=== PATIENT | female | born 2000 | race Native Hawaiian/Other Pacific Islander ===

== ENCOUNTER 2020-12-06 20:52 | Emergency (ER) | payer OTHER ==
[2020-12-06 22:09] VITALS: PULSE 88; RESP 18; TEMP 98
[2020-12-06] MEDS ORDERED: LABETALOL 200 MG TAB PO ONE (23:45)
[2020-12-07 00:19] VITALS: BP 143/103
[2020-12-07 00:27] LABS: Appearance,Urine Clear (Clear); Bilirubin,Urine Negative (Negative); Blood,Urine Small (Negative); Color,Urine Colorless; Glucose,Urine (UA) Negative (Negative); Ketones,Urine Negative (Negative); Leukocyte Esterase,Urine Small (Negative); Nitrite,Urine Negative (Negative); Protein,Urine 2+ (Negative); RBC,Urine 5 /hpf (0-5); Specific Gravity,Urine 1.006 (1.001-1.035); Squamous Epithelial Cell,Urine <1 /hpf (0-4); Urobilinogen,Urine <2.0 mg/dL (<2.0); WBC,Urine 12 /hpf (0-5)
--- NOTE | 2020-12-07 00:38 | ED ---
Recheck HPI - General Chief Complaint: Recheck/Abnormal Lab/Rx Stated Complaint: 16 Wks Preg,Hasn't felt baby move Time Seen by Provider: 12/06/20 23:14 Source: patient Mode of arrival: ambulatory Limitations: no limitations - History of Present Illness Initial Comments: 20 year-old female patien who is , presents to the emergency department for evaluation because she has not felt the baby move in 3 days. She states previously she was feeling some movements. Patient is considered a high risk due to history of renal failure with Alport syndrome. States she had light pink spotting yesterday. Denies any abdominal pain or cramping. Denies any vaginal bleeding or discharge today. She also reports mild increase in swelling to the legs. Denies hematuria, dysuria, urinary frequency, urinary urgency. Patient denies any recent rash, fever, chills, cough, shortness of breath, chest pain, nausea, vomiting, diarrhea, constipation, numbness, tingling, dizziness, weakness, urinary frequency, headache, visual changes, or any other complaints. - Related Data Previous Rx's Medication Instructions Recorded Enalapril [Vasotec] 10 mg PO DAILY #30 tablet 08/08/13 Cephalexin [Keflex] 500 mg PO BID #6 cap 12/07/20 Allergies Allergy/AdvReac Type Severity Reaction Status Date / Time No Known Allergies Allergy Verified 12/06/20 22:05 Review of Systems ROS Statement: Those systems with pertinent positive or pertinent negative responses have been documented in the HPI. ROS Other: All systems not noted in ROS Statement are negative. Past Medical History Past Medical History: Hypertension Additional Past Medical History / Comment(s): alport syndrome History of Any Multi-Drug Resistant Organisms: None Reported Past Surgical History: No Surgical Hx Reported Past Psychological History: No Psychological Hx Reported Smoking Status: Never smoker Past Alcohol Use History: None Reported Past Drug Use History: None Reported General Exam Limitations: no limitations General appearance: alert, in no apparent distress, other (This is a well- developed, well-nourished adult female patient in no acute distress. Vital signs upon presentation are temperature 98.2F, pulse 88, respirations 18, blood pressure 161/103, pulse ox 99% on room air.) ENT exam: Present: normal exam, normal oropharynx, mucous membranes moist Respiratory exam: Present: normal lung sounds bilaterally. Absent: respiratory distress, wheezes, rales, rhonchi, stridor Cardiovascular Exam: Present: regular rate, normal rhythm, normal heart sounds. Absent: systolic murmur, diastolic murmur, rubs, gallop, clicks GI/Abdominal exam: Present: soft, normal bowel sounds. Absent: distended, tenderness, guarding, rebound, rigid Neurological exam: Present: alert, oriented X3, CN II-XII intact Psychiatric exam: Present: normal affect, normal mood Skin exam: Present: warm, dry, intact, normal color. Absent: rash Course Vital Signs 12/06/20 12/07/20 22:05 00:18 Temperature 98.0 F Pulse Rate 88 Respiratory 18 Rate Blood Pressure 161/103 143/103 O2 Sat by Pulse 99 Oximetry Procedures - Procedures Initial comment: Performed bedside ultrasound of the fetus, visualized movement and cardiac activity. Medical Decision Making - Medical Decision Making 20-year-old female patient presents to the emergency department today for evaluation due to not feeling her baby move for the last 3 days. She is 16 weeks , G2, P0. Did perform bedside ultrasound which showed good movement and cardiac activity. We did urinalysis which showed 16 white blood cells large leukocyte esterase, we will treat with Keflex for UTI. She has some lower extremity swelling, nonpitting edema. He smiled at this time. She is having no difficulty breathing. She'll be discharged follow-up with her DOG TRACK KENNEL MANAGER and associate store director for further evaluation as soon as possible. Return parameters discussed in detail. She verbalizes understanding and agrees with this plan. Case discussed with my attending Dr. Russo. - Lab Data Lab Results 12/07/20 Range/Units 00:18 Urine Color Colorless Urine Appearance Clear (Clear) Urine pH 7.0 (5.0-8.0) Ur Specific [place] 1.006 (1.001-1.035) Urine Protein 2+ H (Negative) Urine Glucose (UA) Negative (Negative) Urine Ketones Negative (Negative) Urine Blood Small H (Negative) Urine Nitrite Negative (Negative) Urine Bilirubin Negative (Negative) Urine Urobilinogen <2.0 (<2.0) mg/dL Ur Leukocyte Esterase Small H (Negative) Urine RBC 5 (0-5) /hpf Urine WBC 12 H (0-5) /hpf Ur Squamous Epith Cells <1 (0-4) /hpf Disposition Clinical Impression: Leg swelling in Disposition: HOME SELF-CARE Condition: Good Instructions (If sedation given, give patient instructions): Leg Edema (ED) Additional Instructions: Take medication as directed. Follow up with primary care physician in 1-2 days. Return for any new, worsening, or concerning symptoms. Prescriptions: Cephalexin [Keflex] 500 mg PO BID #6 cap Is patient prescribed a controlled substance at d/c from ED?: No Referrals: Daisy Calvillo DO [Primary Care Provider] - 1-2 days Time of Disposition: 01:04
[2020-12-07] MEDS ORDERED: CEPHALEXIN 500MG STARTER PACK 4 CAP BTL PO STA (01:04)
== END 2020-12-07 01:30 | disposition home or self-care (01) ==
LOC: EC 20:52
DX: O26.892 Other specified pregnancy related conditions, second trimester (principal); R60.0 Localized edema; Z3A.16 16 weeks gestation of pregnancy
CPT/HCPCS: 81001; 87086; 99283

== ENCOUNTER 2020-12-23 13:55 | Emergency (ER) | payer OTHER ==
[2020-12-23 14:02] VITALS: TEMP 98.6
[2020-12-23 14:23] VITALS: RESP 18
[2020-12-23] MEDS ORDERED: SODIUM CHLORIDE 0.9% 1,000 ML IV STA (14:25)
--- NOTE | 2020-12-23 14:57 | ED ---
General Adult HPI - General Chief complaint: Recheck/Abnormal Lab/Rx Stated complaint: 18weeks preg-poss water break Time Seen by Provider: 12/23/20 14:19 Source: patient, RN notes reviewed, old records reviewed Mode of arrival: ambulatory Limitations: no limitations - History of Present Illness Initial comments: 20-year-old female currently 18 weeks presents with suspected ruptured membranes. She noted just prior to arrival clear drainage without blood. She has some mild abdominal cramping. She does follow with the high risk clinic at [facility]. She has a history of Alport's syndrome and is in stage III kidney failure. She has one previous miscarriage. - Related Data Previous Rx's Medication Instructions Recorded Enalapril [Vasotec] 10 mg PO DAILY #30 tablet 08/08/13 Cephalexin [Keflex] 500 mg PO BID #6 cap 12/07/20 Allergies Allergy/AdvReac Type Severity Reaction Status Date / Time No Known Allergies Allergy Verified 12/06/20 22:05 Review of Systems ROS Statement: Those systems with pertinent positive or pertinent negative responses have been documented in the HPI. ROS Other: All systems not noted in ROS Statement are negative. Past Medical History Past Medical History: Hypertension Additional Past Medical History / Comment(s): alport syndrome History of Any Multi-Drug Resistant Organisms: None Reported Past Surgical History: No Surgical Hx Reported Past Psychological History: No Psychological Hx Reported Smoking Status: Never smoker Past Alcohol Use History: None Reported Past Drug Use History: None Reported General Exam Limitations: no limitations General appearance: alert, in no apparent distress Head exam: Present: atraumatic, normocephalic Eye exam: Present: normal appearance, PERRL ENT exam: Present: normal exam Neck exam: Present: normal inspection. Absent: tenderness, meningismus Respiratory exam: Present: normal lung sounds bilaterally. Absent: respiratory distress, wheezes Cardiovascular Exam: Present: regular rate, normal rhythm GI/Abdominal exam: Present: soft, tenderness (Mild suprapubic tenderness). Absent: distended Extremities exam: Present: normal capillary refill, pedal edema Neurological exam: Present: alert, oriented X3, CN II-XII intact. Absent: motor sensory deficit Psychiatric exam: Present: normal affect, normal mood Skin exam: Present: warm, dry, intact. Absent: cyanosis, diaphoretic Course Vital Signs 12/23/20 12/23/20 12/23/20 13:57 14:22 15:23 Temperature 98.6 F Pulse Rate 94 103 H 99 Respiratory 19 18 18 Rate Blood Pressure 137/95 144/96 O2 Sat by Pulse 100 99 100 Oximetry - Reevaluation(s) Reevaluation #1: 12/23/20 16:14 Did discuss [address] with [address] Cook at [facility] covering for the high risk obstetrics. We did decide ultimately to send the patient to [facility] for intake evaluation and treatment. Antibiotics were initiated including ampicillin and azithromycin. Medical Decision Making - Medical Decision Making 20-year-old female history of Alport syndrome, hypertension, at 18 weeks gestation presenting with ruptured membranes. She has minimal abdominal cramping. She is mildly hypertensive with otherwise stable vitals. Ultrasound is performed, showing decreased amniotic fluid and heart tones of 145. Patient has a normal white blood cell count, hemoglobin is 10.4. She has a creatinine of 2.2 without recent for comparison. I discussed case with Dr. Lam at the onset of care when recommended ultrasound and laboratory testing this was performed. I discussed case with Dr. Cook covering for high risk obstetrics at [facility]. He did recommend initiating antibiotics and ultimately decided to transfer the patient for further evaluatio n and treatment. I discussed case with the covering electromechanical technician Dr. Sy. Patient given a disc with imaging, she will drive to [facility] and report to labor and delivery. - Lab Data Result diagrams: 12/23/20 15:23 12/23/20 15:23 Lab Results 12/23/20 12/23/20 12/23/20 Range/Units 15:23 15:23 15:23 WBC 9.5 (3.8-10.6) k/uL RBC 3.62 L (3.80-5.40) m/uL Hgb 10.4 L (11.4-16.0) gm/dL Hct 31.2 L (34.0-46.0) % MCV 86.1 (80.0-100.0) fL MCH 28.6 (25.0-35.0) pg MCHC 33.2 (31.0-37.0) g/dL RDW 15.0 (11.5-15.5) % Plt Count 308 (150-450) k/uL MPV 7.2 Neutrophils % 78 % Lymphocytes % 16 % Monocytes % 3 % Eosinophils % 1 % Basophils % 0 % Neutrophils # 7.5 (1.3-7.7) k/uL Lymphocytes # 1.5 (1.0-4.8) k/uL Monocytes # 0.3 (0-1.0) k/uL Eosinophils # 0.1 (0-0.7) k/uL Basophils # 0.0 (0-0.2) k/uL PT (9.0-12.0) sec INR (<1.2) APTT (22.0-30.0) sec Sodium 135 L (137-145) mmol/L Potassium 5.3 H (3.5-5.1) mmol/L Chloride 112 H (98-107) mmol/L Carbon Dioxide 14 L (22-30) mmol/L Anion Gap 9 mmol/L BUN 16 (7-17) mg/dL Creatinine 2.21 H (0.52-1.04) mg/dL Est GFR (CKD-EPI)AfAm 36 (>60 ml/min/1.73 sqM) Est GFR (CKD-EPI)NonAf 31 (>60 ml/min/1.73 sqM) Glucose 76 (74-99) mg/dL Plasma Lactic Acid Roland 0.6 L (0.7-2.0) mmol/L Calcium 9.5 (8.4-10.2) mg/dL Total Bilirubin 0.4 (0.2-1.3) mg/dL AST 21 (14-36) U/L ALT 15 (4-34) U/L Alkaline Phosphatase 104 (38-126) U/L Total Protein 6.9 (6.3-8.2) g/dL Albumin 3.6 (3.5-5.0) g/dL 12/23/20 Range/Units 15:23 WBC (3.8-10.6) k/uL RBC (3.80-5.40) m/uL Hgb (11.4-16.0) gm/dL Hct (34.0-46.0) % MCV (80.0-100.0) fL MCH (25.0-35.0) pg MCHC (31.0-37.0) g/dL RDW (11.5-15.5) % Plt Count (150-450) k/uL MPV Neutrophils % % Lymphocytes % % Monocytes % % Eosinophils % % Basophils % % Neutrophils # (1.3-7.7) k/uL Lymphocytes # (1.0-4.8) k/uL Monocytes # (0-1.0) k/uL Eosinophils # (0-0.7) k/uL Basophils # (0-0.2) k/uL PT 9.6 (9.0-12.0) sec INR 0.9 (<1.2) APTT 24.2 (22.0-30.0) sec Sodium (137-145) mmol/L Potassium (3.5-5.1) mmol/L Chloride (98-107) mmol/L Carbon Dioxide (22-30) mmol/L Anion Gap mmol/L BUN (7-17) mg/dL Creatinine (0.52-1.04) mg/dL Est GFR (CKD-EPI)AfAm (>60 ml/min/1.73 sqM) Est GFR (CKD-EPI)NonAf (>60 ml/min/1.73 sqM) Glucose (74-99) mg/dL Plasma Lactic Acid Roland (0.7-2.0) mmol/L Calcium (8.4-10.2) mg/dL Total Bilirubin (0.2-1.3) mg/dL AST (14-36) U/L ALT (4-34) U/L Alkaline Phosphatase (38-126) U/L Total Protein (6.3-8.2) g/dL Albumin (3.5-5.0) g/dL Disposition Clinical Impression: premature rupture of membranes Disposition: HOME SELF-CARE Condition: Fair Additional Instructions: Please take disc. Please report likely to [facility] labor and delivery. Is patient prescribed a controlled substance at d/c from ED?: No Referrals: Daisy Calvillo DO [Primary Care Provider] - 1-2 days Time of Disposition: 16:22
[2020-12-23] MEDS ORDERED: SODIUM CHLORIDE 0.9% 1,000 ML IV SCH (15:00)
[2020-12-23 15:38] LABS: Basophils % (A) 0 %; Eosinophils # (A) 0.1 k/uL (0-0.7); Eosinophils % (A) 1 %; HCT 31.2 % (34.0-46.0); HGB 10.4 gm/dL (11.4-16.0); Lymphocytes # (A) 1.5 k/uL (1.0-4.8); Lymphocytes % (A) 16 %; MCH 28.6 pg (25.0-35.0); MCHC 33.2 g/dL (31.0-37.0); MCV 86.1 fL (80.0-100.0); Mean Platelet Volume 7.2; Monocytes # (A) 0.3 k/uL (0-1.0); Monocytes % (A) 3 %; Neutrophils # (A) 7.5 k/uL (1.3-7.7); Neutrophils % (A) 78 %; Platelet Count 308 k/uL (150-450); RBC 3.62 m/uL (3.80-5.40); WBC 9.5 k/uL (3.8-10.6)
--- NOTE | 2020-12-23 15:39 | US ---
EXAMINATION TYPE: US OB >= 14 wk fetus DATE OF EXAM: 12/23/2020 COMPARISON: None CLINICAL HISTORY: . ruptured membranesPatient states having an ultrasound x 2 days ago TECHNIQUE: Transabdominal (TA) GESTATIONAL AGE / DATING Physician Established: (18 weeks/0 days) EDC: 05/26/2021 Dates by Current Scan: (17 weeks/2 days) EDC: Beta HCG (if available): Not available at this time SURVEY IUP: Single PLACENTA: posterior, not well visualized due to no amniotic fluid PREVIA: not well visualized due to no amniotic fluid PHIL: 2.0 cm Oligohydramnios CERVICAL LENGTH (transabdominal: norm > 3.0cm): 3.1 cm BIOMETRY- limited visualization due to no amniotic fluid PRESENTATION: Breech BPD: 3.4 cm 16 weeks / 4 days HC: 13.5 cm 17 weeks / 0 days AC: 13.0 cm 18 weeks / 4 days FL: 2.4 cm 17 weeks / 0 days ESTIMATED WEIGHT IN GRAMS: 207.1 grams ESTIMATED WEIGHT IN LBS/OZ: 0 lbs. 7 oz. WEIGHT PERCENTAGE BASED ON ESTABLISHED DATES: 28.7% HC/AC: 1.03 Abnormal FL/AC: 17.5 Normal HEART RATE: 145 bpm RHYTHM: Normal Abnormal amniotic fluid volume visualized. IUP with positive heart tones. Right ovarian cyst seen= 3.6 x 3.0 x 3.0 cm IMPRESSION: Intrauterine as described above. Oligohydramnios with an amniotic fluid index of 2.0 cm.
[2020-12-23 15:50] LABS: Albumin 3.6 g/dL (3.5-5.0); Calcium 9.5 mg/dL (8.4-10.2); Potassium 5.3 mmol/L (3.5-5.1); Total Bilirubin 0.4 mg/dL (0.2-1.3); Total Protein 6.9 g/dL (6.3-8.2)
[2020-12-23] MEDS ORDERED: AMPICILLIN 250 MG VIAL IV ONE (16:03)
[2020-12-23] MEDS ORDERED: AZITHROMYCIN 500 MG in SODIUM CHLORIDE 0.9% 250 ML IVPB STA (16:04)
[2020-12-23 16:07] LABS: INR 0.9 (<1.2); Partial Thromboplastin Time 24.2 sec (22.0-30.0); Prothrombin Time 9.6 sec (9.0-12.0)
[2020-12-23 16:44] LABS: Appearance,Urine Cloudy (Clear); Bacteria,Urine Rare /hpf; Bilirubin,Urine Negative (Negative); Blood,Urine Small (Negative); Color,Urine Light Yellow; Glucose,Urine (UA) Negative (Negative); Ketones,Urine Negative (Negative); Leukocyte Esterase,Urine Moderate (Negative); Mucus,Urine Rare /hpf; Nitrite,Urine Negative (Negative); Protein,Urine 2+ (Negative); RBC,Urine 5 /hpf (0-5); Specific Gravity,Urine 1.007 (1.001-1.035); Squamous Epithelial Cell,Urine 5 /hpf (0-4); Urobilinogen,Urine <2.0 mg/dL (<2.0); WBC,Urine 33 /hpf (0-5)
[2020-12-23] MEDS ORDERED: AMPICILLIN 500 MG in SODIUM CHLORIDE 0.9% 50 ML IVPB ONE (17:00)
[2020-12-23 17:19] VITALS: BP 147/106; PULSE 105
== END 2020-12-23 18:05 | disposition home or self-care (01) ==
LOC: EC 13:55
DX: O26.892 Other specified pregnancy related conditions, second trimester (principal); O42.912 Preterm premature rupture of membranes, unspecified as to length of time between rupture and onset of labor, second trimester; O10.912 Unspecified pre-existing hypertension complicating pregnancy, second trimester; Z3A.18 18 weeks gestation of pregnancy
CPT/HCPCS: 99284; 96365; 96367; 96361; 36415; 86900; 86901; 80053; 83605; 85025; 85610; 85730; 86850; 81001; 87040; 87086; 76805; J0456; J0290

== ENCOUNTER 2020-12-27 23:59 | Emergency (ER) | payer OTHER ==
[2020-12-28 00:15] VITALS: TEMP 97.8
--- NOTE | 2020-12-28 02:32 | US ---
EXAMINATION TYPE: US pelvic complete DATE OF EXAM: 12/28/2020 COMPARISON: NONE CLINICAL HISTORY: delivery @ 18 weeks 12/25; passed tissue today. patient delivered premature fetus 2 days ago and is having some bleeding tonight, no fever, mild pelvic discomfort TECHNIQUE: TA. Transabdominal sonographic images of the pelvis were acquired. Date of LMP: unknown EXAM MEASUREMENTS: Uterus: 12.5 x 6.1 x 6.7 cm Endometrial Stripe: 2.5 cm Right Ovary: 5.4 x 3.2 x 3.8 cm Left Ovary: 3.0 x 2.1 x 2.0 cm 1. Uterus: Anteverted wnl 2. Endometrium: thickness appears wnl for 2 days , no focal areas of increased vascularity seen, does not appear to have retained products 3. Right Ovary: 3.6 x 3.0 x 3.6cm simple cyst 4. Left Ovary: wnl 5. Bilateral Adnexa: wnl 6. Posterior cul-de-sac: wnl IMPRESSION: There is simple cyst on the right ovary. No solid adnexal mass. Endometrium within normal limits. No sign of retained products.
[2020-12-28 03:41] LABS: Basophils % (A) 0 %; Eosinophils # (A) 0.1 k/uL (0-0.7); Eosinophils % (A) 1 %; HCT 30.2 % (34.0-46.0); Lymphocytes # (A) 2.1 k/uL (1.0-4.8); Lymphocytes % (A) 25 %; MCH 28.8 pg (25.0-35.0); MCHC 33.2 g/dL (31.0-37.0); MCV 86.8 fL (80.0-100.0); Mean Platelet Volume 7.6; Monocytes # (A) 0.3 k/uL (0-1.0); Monocytes % (A) 4 %; Neutrophils # (A) 5.8 k/uL (1.3-7.7); Neutrophils % (A) 69 %; Platelet Count 288 k/uL (150-450); RBC 3.48 m/uL (3.80-5.40); RDW 14.9 % (11.5-15.5); WBC 8.4 k/uL (3.8-10.6)
[2020-12-28 03:55] LABS: Albumin 3.7 g/dL (3.5-5.0); Calcium 9.1 mg/dL (8.4-10.2); Potassium 4.6 mmol/L (3.5-5.1); Total Bilirubin 0.3 mg/dL (0.2-1.3); Total Protein 6.8 g/dL (6.3-8.2)
[2020-12-28 04:11] LABS: HCG,Quantitative Serum 4045.9 mIU/mL
--- NOTE | 2020-12-28 04:11 | ED ---
General Adult HPI - General Chief complaint: Vaginal Bleeding Stated complaint: female gu Time Seen by Provider: 12/28/20 01:10 Source: patient Mode of arrival: ambulatory Limitations: no limitations - History of Present Illness Initial comments: 20 year-old female patient with past history significant for Alport syndrome with Stage III kidney disease, presents for evaluation after passing what she believes is placenta. She was recently 18 weeks , had premature rupture of membranes three days ago, and was delivered at [facility]. Patient states that she has been having minimal discomfort and vaginal bleeding. States she is passing small blood clots. States around midnight she passed a larger piece of "placenta". States she did have increase in bleeding after this. She denies any fever or chills. Denies dizziness or weakness. She is . - Related Data Previous Rx's Medication Instructions Recorded Enalapril [Vasotec] 10 mg PO DAILY #30 tablet 08/08/13 Cephalexin [Keflex] 500 mg PO BID #6 cap 12/07/20 Allergies Allergy/AdvReac Type Severity Reaction Status Date / Time No Known Allergies Allergy Verified 12/28/20 00:15 Review of Systems ROS Statement: Those systems with pertinent positive or pertinent negative responses have been documented in the HPI. ROS Other: All systems not noted in ROS Statement are negative. Past Medical History Past Medical History: Hypertension Additional Past Medical History / Comment(s): alport syndrome History of Any Multi-Drug Resistant Organisms: None Reported Past Surgical History: No Surgical Hx Reported Past Psychological History: No Psychological Hx Reported Smoking Status: Never smoker Past Alcohol Use History: None Reported Past Drug Use History: None Reported General Exam Limitations: no limitations General appearance: alert, in no apparent distress, other (This is a well- developed, well-nourished adult female patient in no acute distress.) Eye exam: Present: normal appearance, PERRL, EOMI. Absent: scleral icterus, conjunctival injection, periorbital swelling ENT exam: Present: normal exam, normal oropharynx, mucous membranes moist Respiratory exam: Present: normal lung sounds bilaterally. Absent: respiratory distress, wheezes, rales, rhonchi, stridor Cardiovascular Exam: Present: regular rate, normal rhythm, normal heart sounds. Absent: systolic murmur, diastolic murmur, rubs, gallop, clicks GI/Abdominal exam: Present: soft, normal bowel sounds. Absent: distended, tenderness, guarding, rebound, rigid Neurological exam: Present: alert, oriented X3, CN II-XII intact Psychiatric exam: Present: normal affect, normal mood Skin exam: Present: warm, dry, intact, normal color. Absent: rash Course Vital Signs 12/28/20 00:12 Temperature 97.8 F Pulse Rate 79 Respiratory 18 Rate Blood Pressure 154/103 O2 Sat by Pulse 100 Oximetry Medical Decision Making - Medical Decision Making 20-year-old female patient presents to the emergency department today for evaluation after she passed a large piece of tissue and started having heavier vaginal bleeding. Patient has 3 days after delivering an 18 week fetus at [facility]. Physical examination did reveal soft nontender abdomen. Labs reviewed and did reveal hemoglobin of 10.0. His are unremarkable, blood pressures are stable. Ultrasound showed normal endometrium and no sign of retained products. I did discuss findings and results with the patient. She states her bleeding has slowed considerably. She reports very mild pain. She'll be discharged follow-up with her VICE PRESIDENT INTEGRATED first thing in the morning. Return parameters were discussed in detail. She verbalizes understanding and agrees with this plan. Case discussed with my attending Dr. Russo. - Lab Data Result diagrams: 12/28/20 02:59 12/28/20 02:59 Lab Results 12/28/20 12/28/20 12/28/20 Range/Units 02:59 02:59 02:59 WBC 8.4 (3.8-10.6) k/uL RBC 3.48 L (3.80-5.40) m/uL Hgb 10.0 L (11.4-16.0) gm/dL Hct 30.2 L (34.0-46.0) % MCV 86.8 (80.0-100.0) fL MCH 28.8 (25.0-35.0) pg MCHC 33.2 (31.0-37.0) g/dL RDW 14.9 (11.5-15.5) % Plt Count 288 (150-450) k/uL MPV 7.6 Neutrophils % 69 % Lymphocytes % 25 % Monocytes % 4 % Eosinophils % 1 % Basophils % 0 % Neutrophils # 5.8 (1.3-7.7) k/uL Lymphocytes # 2.1 (1.0-4.8) k/uL Monocytes # 0.3 (0-1.0) k/uL Eosinophils # 0.1 (0-0.7) k/uL Basophils # 0.0 (0-0.2) k/uL Sodium 137 (137-145) mmol/L Potassium 4.6 (3.5-5.1) mmol/L Chloride 112 H (98-107) mmol/L Carbon Dioxide 16 L (22-30) mmol/L Anion Gap 9 mmol/L BUN 23 H (7-17) mg/dL Creatinine 3.14 H (0.52-1.04) mg/dL Est GFR (CKD-EPI)AfAm 23 (>60 ml/min/1.73 sqM) Est GFR (CKD-EPI)NonAf 20 (>60 ml/min/1.73 sqM) Glucose 78 (74-99) mg/dL Calcium 9.1 (8.4-10.2) mg/dL Total Bilirubin 0.3 (0.2-1.3) mg/dL AST 22 (14-36) U/L ALT 17 (4-34) U/L Alkaline Phosphatase 120 (38-126) U/L Total Protein 6.8 (6.3-8.2) g/dL Albumin 3.7 (3.5-5.0) g/dL HCG, Quant 4045.9 mIU/mL Urine Color Light Red Urine Appearance Cloudy H (Clear) Urine pH 6.5 (5.0-8.0) Ur Specific [place] 1.013 (1.001-1.035) Urine Protein 2+ H (Negative) Urine Glucose (UA) Negative (Negative) Urine Ketones Negative (Negative) Urine Blood Large H (Negative) Urine Nitrite Negative (Negative) Urine Bilirubin Negative (Negative) Urine Urobilinogen <2.0 (<2.0) mg/dL Ur Leukocyte Esterase Large H (Negative) Urine RBC >182 H (0-5) /hpf Urine WBC 58 H (0-5) /hpf Ur Squamous Epith Cells 5 H (0-4) /hpf - Radiology Data Radiology results: report reviewed, image reviewed Ultrasound of the pelvis is obtained. Report was reviewed in its entirety. Impression by Dr. Fleming shows simple cyst on the right ovary. No solid a dnexal mass. Endometrium is within normal limits. No sign of retained products. Disposition Clinical Impression: Vaginal bleeding Disposition: HOME SELF-CARE Condition: Good Instructions (If sedation given, give patient instructions): Dysfunctional Uterine Bleeding (ED) Additional Instructions: Follow-up with your [employer] for recheck as soon as possible. Return for any new, worsening, or concerning symptoms. Is patient prescribed a controlled substance at d/c from ED?: No Referrals: Hubert Keyes MD [Primary Care Provider] - 1-2 days Time of Disposition: 04:39
[2020-12-28 04:27] LABS: Appearance,Urine Cloudy (Clear); Bilirubin,Urine Negative (Negative); Blood,Urine Large (Negative); Color,Urine Light Red; Glucose,Urine (UA) Negative (Negative); Ketones,Urine Negative (Negative); Leukocyte Esterase,Urine Large (Negative); Nitrite,Urine Negative (Negative); PH, Urine 6.5 (5.0-8.0); Protein,Urine 2+ (Negative); RBC,Urine >182 /hpf (0-5); Specific Gravity,Urine 1.013 (1.001-1.035); Squamous Epithelial Cell,Urine 5 /hpf (0-4); Urobilinogen,Urine <2.0 mg/dL (<2.0); WBC,Urine 58 /hpf (0-5)
[2020-12-28 05:05] VITALS: BP 151/85; PULSE 72; RESP 17
== END 2020-12-28 05:02 | disposition home or self-care (01) ==
LOC: EC 23:59
DX: O72.2 Delayed and secondary postpartum hemorrhage (principal); N83.291 Other ovarian cyst, right side; I10 Essential (primary) hypertension; Z79.899 Other long term (current) drug therapy
CPT/HCPCS: 36415; 76856; 80053; 81001; 84702; 85025; 87086; 99284

== ENCOUNTER 2021-01-05 02:50 | Emergency (ER) | payer OTHER ==
[2021-01-05] MEDS ORDERED: MORPHINE SULFATE 4 MG/ML SYRINGE IV STA (03:38)
[2021-01-05] MEDS ORDERED: SODIUM CHLORIDE 0.9% 1,000 ML IV STA (03:38)
--- NOTE | 2021-01-05 03:40 | ED ---
Abdominal Pain HPI - General Chief Complaint: Abdominal Pain Stated Complaint: Abd Pain Time Seen by Provider: 01/05/21 02:56 Source: patient, RN notes reviewed, old records reviewed Mode of arrival: ambulatory Limitations: no limitations - History of Present Illness Initial Comments: 20-year-old female to the emergency for today. Patient Dese with severe epigastric and upper abdominal pain severe abdominal bloating and pain. Recent medical history does show the patient has had recent miscarriage, stillbirth at about 18 weeks. Patient otherwise has no travel history or sick contacts no fevers. She did have nausea vomiting MD Complaint: abdominal pain -: days(s) Location: diffuse, periumbilical Radiation: epigastric Migration to: epigastric Severity: moderate Severity scale (1-10): 4 Quality: cramping, aching Consistency: constant Improves With: nothing Worsens With: nothing Associated Symptoms: nausea, vomiting Treatments Prior to Arrival: prescription analgesics - Related Data Previous Rx's Medication Instructions Recorded Enalapril [Vasotec] 10 mg PO DAILY #30 tablet 08/08/13 Cephalexin [Keflex] 500 mg PO BID #6 cap 12/07/20 Allergies Allergy/AdvReac Type Severity Reaction Status Date / Time No Known Allergies Allergy Verified 01/05/21 03:01 Review of Systems ROS Statement: Those systems with pertinent positive or pertinent negative responses have been documented in the HPI. ROS Other: All systems not noted in ROS Statement are negative. 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 Absent: scleral icterus, conjunctival injection, periorbital swelling ENT exam: Present: normal exam, mucous membranes moist Neck exam: Present: normal inspection. Absent: tenderness, meningismus, lympha denopathy Respiratory exam: Present: normal lung sounds bilaterally. Absent: respiratory distress, wheezes, rales, rhonchi, stridor Cardiovascular Exam: Present: regular rate, normal rhythm, normal heart sounds. Absent: systolic murmur, diastolic murmur, rubs, gallop, clicks GI/Abdominal exam: Present: soft, normal bowel sounds. Absent: distended, tenderness, guarding, rebound, rigid Extremities exam: Present: normal inspection, full ROM, normal capillary refill. Absent: tenderness, pedal edema, joint swelling, calf tenderness Back exam: Present: normal inspection Neurological exam: Present: alert, oriented X3, CN II-XII intact Psychiatric exam: Present: normal affect, normal mood Skin exam: Present: warm, dry, intact, normal color. Absent: rash Course Vital Signs 01/05/21 02:54 Temperature 98.3 F Pulse Rate 81 Respiratory 20 Rate Blood Pressure 158/100 O2 Sat by Pulse 99 Oximetry - Reevaluation(s) Reevaluation #1: 01/05/21 03:39 Medical record is reviewed Reevaluation #2: 01/05/21 05:47 Patient symptoms are improved, resolved. Reevaluation #3: 01/05/21 05:47 Patient informed results and questions answered Medical Decision Making - Medical Decision Making 20 female to the emergency department with abdominal pain, diffuse abdominal pain epigastric abdominal pain patient for the possibility of gallbladder disease, distention feels well and prefers discharged home rather than further investigation - Lab Data Result diagrams: 01/05/21 04:15 01/05/21 04:15 Lab Results 01/05/21 01/05/21 01/05/21 Range/Units 04:15 04:15 04:15 WBC 13.5 H (3.8-10.6) k/uL RBC 4.03 (3.80-5.40) m/uL Hgb 11.4 (11.4-16.0) gm/dL Hct 33.8 L (34.0-46.0) % MCV 83.8 (80.0-100.0) fL MCH 28.4 (25.0-35.0) pg MCHC 33.9 (31.0-37.0) g/dL RDW 14.3 (11.5-15.5) % Plt Count 367 (150-450) k/uL MPV 7.2 Neutrophils % 81 % Lymphocytes % 13 % Monocytes % 3 % Eosinophils % 1 % Basophils % 0 % Neutrophils # 11.0 H (1.3-7.7) k/uL Lymphocytes # 1.7 (1.0-4.8) k/uL Monocytes # 0.5 (0-1.0) k/uL Eosinophils # 0.2 (0-0.7) k/uL Basophils # 0.1 (0-0.2) k/uL Sodium 140 (137-145) mmol/L Potassium 4.1 (3.5-5.1) mmol/L Chloride 114 H (98-107) mmol/L Carbon Dioxide 15 L (22-30) mmol/L Anion Gap 11 mmol/L BUN 23 H (7-17) mg/dL Creatinine 2.79 H (0.52-1.04) mg/dL Est GFR (CKD-EPI)AfAm 27 (>60 ml/min/1.73 sqM) Est GFR (CKD-EPI)NonAf 23 (>60 ml/min/1.73 sqM) Glucose 87 (74-99) mg/dL Plasma Lactic Acid Roland 1.2 (0.7-2.0) mmol/L Calcium 9.2 (8.4-10.2) mg/dL Total Bilirubin 0.5 (0.2-1.3) mg/dL AST 79 H (14-36) U/L ALT 29 (4-34) U/L Alkaline Phosphatase 145 H (38-126) U/L Total Protein 7.4 (6.3-8.2) g/dL Albumin 3.9 (3.5-5.0) g/dL Amylase 78 (30-110) U/L Lipase 169 (23-300) U/L - Radiology Data Radiology results: report reviewed (X-ray KUB is negative for acute disease), image reviewed Disposition Clinical Impression: Abdominal pain Disposition: HOME SELF-CARE Condition: Good Instructions (If sedation given, give patient instructions): Abdominal Pain (ED) Is patient prescribed a controlled substance at d/c from ED?: No Referrals: Hubert Keyes MD [Primary Care Provider] - 1-2 days
--- NOTE | 2021-01-05 04:21 | XR ---
EXAMINATION TYPE: XR KUB DATE OF EXAM: 01/05/2021 COMPARISON: NONE HISTORY: Abdominal pain TECHNIQUE: Single view FINDINGS: There is no sign of intestinal obstruction or pneumoperitoneum. Fecal pattern is normal. Th ere is no evidence of a mass. There are no pathologic calcifications over the kidneys. Lung bases are clear. IMPRESSION: Nonacute abdomen.
[2021-01-05 04:34] LABS: Basophils # (A) 0.1 k/uL (0-0.2); Basophils % (A) 0 %; Eosinophils # (A) 0.2 k/uL (0-0.7); Eosinophils % (A) 1 %; HCT 33.8 % (34.0-46.0); HGB 11.4 gm/dL (11.4-16.0); Lymphocytes # (A) 1.7 k/uL (1.0-4.8); Lymphocytes % (A) 13 %; MCH 28.4 pg (25.0-35.0); MCHC 33.9 g/dL (31.0-37.0); MCV 83.8 fL (80.0-100.0); Mean Platelet Volume 7.2; Monocytes # (A) 0.5 k/uL (0-1.0); Monocytes % (A) 3 %; Neutrophils % (A) 81 %; Platelet Count 367 k/uL (150-450); RBC 4.03 m/uL (3.80-5.40); RDW 14.3 % (11.5-15.5); WBC 13.5 k/uL (3.8-10.6)
[2021-01-05 04:44] LABS: Albumin 3.9 g/dL (3.5-5.0); Calcium 9.2 mg/dL (8.4-10.2); Potassium 4.1 mmol/L (3.5-5.1); Total Bilirubin 0.5 mg/dL (0.2-1.3); Total Protein 7.4 g/dL (6.3-8.2)
[2021-01-05 06:30] LABS: Appearance,Urine Clear (Clear); Bilirubin,Urine Negative (Negative); Blood,Urine Moderate (Negative); Color,Urine Light Yellow; Glucose,Urine (UA) Negative (Negative); Ketones,Urine Negative (Negative); Leukocyte Esterase,Urine Negative (Negative); Mucus,Urine Rare /hpf; Nitrite,Urine Negative (Negative); Protein,Urine 2+ (Negative); RBC,Urine 6 /hpf (0-5); Specific Gravity,Urine 1.006 (1.001-1.035); Squamous Epithelial Cell,Urine 2 /hpf (0-4); Urobilinogen,Urine <2.0 mg/dL (<2.0); WBC,Urine 2 /hpf (0-5)
[2021-01-05 06:50] VITALS: BP 143/93; PULSE 72; RESP 18; TEMP 97.8
== END 2021-01-05 06:45 | disposition home or self-care (01) ==
LOC: EC 02:50
DX: R10.10 Upper abdominal pain, unspecified (principal); I10 Essential (primary) hypertension
CPT/HCPCS: 36415; 80053; 82150; 83605; 83690; 85025; 81001; 74018; 99284; 96374; 96361 ×3; J2270

== ENCOUNTER 2023-08-21 17:41 | Inpatient (IN) | payer OTHER ==
[2023-08-22] MEDS ORDERED: CALCIUM ACETATE 667 MG TAB PO PRN (06:20)
[2023-08-22 08:29] LABS: African American GFR (CKD) 5 (>60 ml/min/1.73 sqM); Anion Gap 16 mmol/L; Blood Urea Nitrogen 82 mg/dL (7-17); Carbon Dioxide 12 mmol/L (22-30); Chloride 114 mmol/L (98-107); Glucose 78 mg/dL (74-99); Non-African American GFR(CKD) 4 (>60 ml/min/1.73 sqM); Sodium 142 mmol/L (137-145)
[2023-08-22 08:34] LABS: Calcium 5.7 mg/dL (8.4-10.2); Potassium 4.6 mmol/L (3.5-5.1)
[2023-08-22 08:45] LABS: Basophils # (A) 0.1 k/uL (0-0.2); Basophils % (A) 1 %; Eosinophils # (A) 0.2 k/uL (0-0.7); Eosinophils % (A) 3 %; HCT 29.9 % (34.0-46.0); HGB 8.7 gm/dL (11.4-16.0); Hypochromasia Marked; Lymphocytes # (A) 1.9 k/uL (1.0-4.8); Lymphocytes % (A) 30 %; MCH 28.5 pg (25.0-35.0); MCHC 29.2 g/dL (31.0-37.0); MCV 97.6 fL (80.0-100.0); Mean Platelet Volume 10.5; Monocytes # (A) 0.2 k/uL (0-1.0); Monocytes % (A) 4 %; Neutrophils # (A) 3.9 k/uL (1.3-7.7); Neutrophils % (A) 61 %; Platelet Count 139 k/uL (150-450); RBC 3.06 m/uL (3.80-5.40); RDW 13.5 % (11.5-15.5); WBC 6.3 k/uL (3.8-10.6)
[2023-08-22] MEDS: SODIUM BICARBONATE TAB 650 MG TAB PO SCH (08:49)
[2023-08-22] MEDS: LABETALOL 200 MG TAB PO SCH (08:49)
[2023-08-22] MEDS: amLODIPine 10 MG TAB PO SCH (08:50)
[2023-08-22] MEDS: CALCIUM ACETATE 667 MG TAB PO SCH (08:50)
[2023-08-22] MEDS: TORSEMIDE 20 MG TAB PO SCH (08:50)
[2023-08-22] MEDS: CALCIUM GLUCONATE IN NACL 1 GM in SALINE 1 100ML.BAG IVPB ONE (10:01)
--- NOTE | 2023-08-22 10:06 | P.GSCN ---
History of Present Illness Consult date: 08/22/23 Reason for Consult: Hemodialysis port insertion Requesting physician: Hubert Keyes History of present illness: This is a 22-year-old female with a past medical history of chronic kidney disease with end-stage renal disease requiring dialysis. Patient initially started dialysis couple years ago. Has a history of polycystic kidney disease. She had initially tunneled hemodialysis catheters placed. She has had 2 her first 1 was removed in April that was done at [facility] her second [address] Rodriguez and she believes that was removed early in July as she had peritoneal dialysis placed in November 2022. She states she does her dialysis at home. However apparently her kidney function has been worsening and she was initially seen at [facility] for tunneled dialysis catheter pl acement however there was no vascular surgeon available and she was transferred here. Vascular surgery has been consulted for tunneled catheter placement. Patient denies any shortness of breath, chest pain, abdominal pain, nausea or vomiting. Denies any lower extremity swelling. Review of Systems A 14 point review systems was completed all pertinent positives and negatives as stated in the HPI. 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 History of Any Multi-Drug Resistant Organisms: None Reported Past Surgical History: No Surgical Hx Reported, Section Additional Past Surgical History / Comment(s): Permacaths to chest x 2 Past Anesthesia/Blood Transfusion Reactions: No Reported Reaction Past Psychological History: No Psychological Hx Reported Smoking Status: Never smoker Past Alcohol Use History: None Reported Past Drug Use History: None Reported - Past Family History Father Family Medical History: No Reported History Mother Family Medical History: No Reported History Medications and Allergies Home Medications Medication Instructions Recorded Confirmed Type Labetalol [Trandate] 200 mg PO BID 11/08/22 08/21/23 History Medroxyprogesterone Acetate 150 mg IM Q90D 11/08/22 08/21/23 History [Depo-Provera] Torsemide [Demadex] 20 mg PO DAILY 11/08/22 08/21/23 History Calcium Acetate 667 mg PO TID-W/MEALS 08/21/23 08/21/23 History Calcium Acetate [Phoslo] 667 mg PO DAILY PRN 08/21/23 08/21/23 History Sodium Bicarbonate Tab 650 mg PO QID 08/21/23 08/21/23 History amLODIPine [Norvasc] 10 mg PO DAILY 08/21/23 08/21/23 History calcitrioL 0.5 mcg PO DAILY 08/21/23 08/21/23 History Allergies Allergy/AdvReac Type Severity Reaction Status Date / Time No Known Allergies Allergy Verified 08/21/23 21:13 Surgical - Exam Vital Signs Temp Pulse Resp BP Pulse Ox 99.0 F 100 16 145/102 100 08/21/23 21:04 08/21/23 21:04 08/21/23 21:04 08/21/23 21:04 08/21/23 21:04 General appearance: The patient is alert, oriented, appears in no acute di stress. HET: Head is normocephalic and atraumatic. Pupils are equal and reactive. Neck: Supple. Heart: Regular. Lungs: Equal expansion, normal respiratory effort. Abdomen: Soft, obese, nontender, peritoneal catheter in place. Nondistended. Extremities: Normal skin color and turgor. Neurological: No focal deficits. Strength and sensation are grossly intact. Results - Labs 08/22/23 07:29 08/22/23 07:28 Assessment and Plan Assessment: 1. End-stage renal disease requiring hemodialysis 2. Chronic kidney disease with end-stage renal disease currently on peritoneal dialysis Plan: 1. Keep n.p.o. 2. Tentatively plan for tunneled hemodialysis catheter placement today 3. Discussed patient with Dr. Leavitt. She plans on keeping peritoneal dialysis catheter in place for now. 4. Dialysis per recommendations from nephrology 5. Rest of medical management per primary medical team Thank you for this consultation, we will continue to follow. The impression and plan of care has been dictated as directed. I performed a history and examination of this patient, discussed the same with the dictator. I agree with the dictator's note ,documented as a scribe. Any additional findings or plans will be noted.
[2023-08-22] MEDS: DIALYSIS (PERIT 1.5%) 2,500 ML 37.5 G/2,500 ML BAG INTRAPERIT SCH (11:47)
--- NOTE | 2023-08-22 14:30 | P.HPIM ---
History of Present Illness H&P Date: 08/22/23 Chief Complaint: Transferred from [facility] for tunnel cath placement per [facility] camryn thomason. This is a pleasant 22-year-old female with past medical history significant for polycystic kidney disease, requiring dialysis a couple years ago. Reports prior hemodialysis via tunneled catheters with last one removed in early July 2023. Patient was initially admitted to [facility], for tunneled catheter placement secondary to worsening renal function. Vascular surgery services were not available at that site and patient was transferred over to [facility]. Reports last peritoneal dialysis was completed yesterday evening. Nephrology and vascular surgery consults in place. Denies chest pain, palpitations or shortness of breath. Denies lightheadedness, dizziness or focal deficits. Denies headache. Denies nausea vomiting. Patient has no complaints. Vital signs stable, maintaining O2 sats of 100% on room air. Review of Systems Constitutional: Denied any fatigue denied any fever. Cardio vascular: denied any chest pain, palpitations Gastrointestinal denied any nausea vomiting Pulmonary: Denied any shortness of breath cough Neurologic denied any new focal deficits ROS Statement: Those systems with pertinent positive or pertinent negative responses have been documented in the HPI. ROS Other: All systems not noted in ROS Statement are negative. 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 History of Any Multi-Drug Resistant Organisms: None Reported Past Surgical History: No Surgical Hx Reported, Section Additional Past Surgical History / Comment(s): Permacaths to chest x 2 Past Anesthesia/Blood Transfusion Reactions: No Reported Reaction Past Psychological History: No Psychological Hx Reported Smoking Status: Never smoker Past Alcohol Use History: None Reported Past Drug Use History: None Reported - Past Family History Father Family Medical History: No Reported History Mother Family Medical History: No Reported History Medications and Allergies Home Medications Medication Instructions Recorded Confirmed Type Labetalol [Trandate] 200 mg PO BID 11/08/22 08/21/23 History Medroxyprogesterone Acetate 150 mg IM Q90D 11/08/22 08/21/23 History [Depo-Provera] Torsemide [Demadex] 20 mg PO DAILY 11/08/22 08/21/23 History Calcium Acetate 667 mg PO TID-W/MEALS 08/21/23 08/21/23 History Calcium Acetate [Phoslo] 667 mg PO DAILY PRN 08/21/23 08/21/23 History Sodium Bicarbonate Tab 650 mg PO QID 08/21/23 08/21/23 History amLODIPine [Norvasc] 10 mg PO DAILY 08/21/23 08/21/23 History calcitrioL 0.5 mcg PO DAILY 08/21/23 08/21/23 History Allergies Allergy/AdvReac Type Severity Reaction Status Date / Time No Known Allergies Allergy Verified 08/21/23 21:13 Physical Exam Vitals: Vital Signs Temp Pulse Resp BP Pulse Ox 08/22/23 07:00 98.3 F 105 H 16 144/94 100 08/22/23 01:25 106 H 16 130/82 100 08/21/23 21:04 99.0 F 100 16 145/102 100 Intake and Output 08/21/23 08/22/23 08/22/23 22:59 06:59 14:59 Other: Voiding Method Toilet # Voids 1 0 Weight 72.7 kg PHYSICAL EXAM: VITAL SIGNS: [As above] GENERAL: Alert and oriented x 3, sitting up in bed, no acute distress. HEENT: Normocephalic, atraumatic, conjunctivae normal. eyes normal. NECK: Supple, no JVD. No thyroid enlargement. No LNs CARDIOVASCULAR: S1, S2 regular.. No murmur RESPIRATION: Unlabored, equal air entry, clear to auscultation. ABDOMEN: Obese, soft, nondistended, nontender . PD catheter present. no guarding. no masses palpable. No ascites, No hepatosplenomegaly.Bowel sounds heard. LEGS: No edema. no swelling NERVOUS SYSTEM: Cranial N 2-12 grossly normal. No focal deficits. Strength and sensation grossly intact. Skin: Warm and dry, no rash Results CBC & Chem 7: 08/22/23 07:29 08/22/23 07:28 Labs: Abnormal Lab Results - Last 24 Hours (Table) 08/22/23 08/22/23 08/22/23 Range/Units 07:28 07:28 07:29 RBC 3.06 L (3.80-5.40) m/uL Hgb 8.7 L (11.4-16.0) gm/dL Hct 29.9 L (34.0-46.0) % MCHC 29.2 L (31.0-37.0) g/dL Plt Count 139 L (150-450) k/uL Chloride 114 H (98-107) mmol/L Carbon Dioxide 12 L (22-30) mmol/L BUN 82 H (7-17) mg/dL Creatinine 11.73 H* (0.52-1.04) mg/dL Calcium 5.7 L* (8.4-10.2) mg/dL Phosphorus 7.3 H (2.5-4.5) mg/dL Thrombosis Risk Factor Assmnt - Choose All That Apply Any of the Below Risk Factors Present?: No Other Risk Factors: No Other congenital or acquired thrombophilia - If yes, enter type in comment: No Thrombosis Risk Factor Assessment Level: Very Low Risk Assessment and Plan Assessment: ESRD on peritoneal dialysis, now requiring hemodialysis History of polycystic kidney disease Morbid obesity, BMI 32.4 Plan: Continue on current medication regimen ,monitoring and symptomatic treatment. Dialysis as per nephrology- consult in place. Evaluated by Vascular surgery, tunnel catheter placement for hemodialysis today scheduled. No general surgery on case at this time as peritoneal dialysis catheter will be maintained per nephrology-Dr. Leavitt. PPI for GI prophylaxis. The impression and plan of care has been dictated as directed. : I performed a history and examination of this patient, discussed the same with the dictator. I agree with the dictator's note ,documented as a scribe. Any additional findings or plans will be noted.
[2023-08-22] MEDS: SODIUM CHLORIDE 0.9% 1,000 ML IV ONE (14:59)
[2023-08-22] MEDS: ONDANSETRON 4 MG/2 ML VIAL IVP STA (15:05)
[2023-08-22] MEDS: SODIUM CHLORIDE 0.9% 1,000 ML IV SCH (15:05)
[2023-08-22] MEDS: PANTOPRAZOLE 40 MG/10 ML VIAL IVP SCH (16:41)
--- NOTE | 2023-08-22 18:32 | P.NPCON ---
History of Present Illness - Reason for Consult end stage renal disease - History of Present Illness Patient is a 22-year-old female with daily renal disease currently maintained on peritoneal dialysis however patient has been very noncompliant with her dialysis exchanges. She is admitted to the hospital due to significantly abnormal labs. Patient did state that she was not doing her PD exchanges. The plan is to switch to hemodialysis. Patient was transferred from [facility] for dialysis catheter placement as vascular surgery was not available. Currently receiving peritoneal dialysis since admission with improvement in labs. No complaints of nausea vomiting abdominal pain or diarrhea. Vascular surgery has been consulted. No issues with peritoneal dialysis exchanges during the hospitalization. 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 History of Any Multi-Drug Resistant Organisms: None Reported Past Surgical History: No Surgical Hx Reported, Section Additional Past Surgical History / Comment(s): Permacaths to chest x 2 Past Anesthesia/Blood Transfusion Reactions: No Reported Reaction Past Psychological History: No Psychological Hx Reported Smoking Status: Never smoker Past Alcohol Use History: None Reported Past Drug Use History: None Reported - Past Family History Father Family Medical History: No Reported History Mother Family Medical History: No Reported History Medications and Allergies Home Medications Medication Instructions Recorded Confirmed Type Labetalol [Trandate] 200 mg PO BID 11/08/22 08/21/23 History Medroxyprogesterone Acetate 150 mg IM Q90D 11/08/22 08/21/23 History [Depo-Provera] Torsemide [Demadex] 20 mg PO DAILY 11/08/22 08/21/23 History Calcium Acetate 667 mg PO TID-W/MEALS 08/21/23 08/21/23 History Calcium Acetate [Phoslo] 667 mg PO DAILY PRN 08/21/23 08/21/23 History Sodium Bicarbonate Tab 650 mg PO QID 08/21/23 08/21/23 History amLODIPine [Norvasc] 10 mg PO DAILY 08/21/23 08/21/23 History calcitrioL 0.5 mcg PO DAILY 08/21/23 08/21/23 History Allergies Allergy/AdvReac Type Severity Reaction Status Date / Time No Known Allergies Allergy Verified 08/21/23 21:13 Physical Exam Vitals: Vital Signs Temp Pulse Resp BP Pulse Ox 08/22/23 14:53 97.9 F 106 H 16 110/68 99 08/22/23 14:37 98.2 F 114 H 18 103/69 98 08/22/23 07:00 98.3 F 105 H 16 144/94 100 08/22/23 01:25 106 H 16 130/82 100 08/21/23 21:04 99.0 F 100 16 145/102 100 Intake and Output 08/22/23 08/22/23 08/22/23 06:59 14:59 22:59 Other: # Voids 0 2 # Bowel Movements 1 Patient is awake, comfortable, no acute distress. Examination of the heart S1 and S2 Examination of the lungs bilateral breath sounds are heard Abdomen is soft nontender Examination of lower extremities shows no significant edema BUS STARTER exam grossly intact Results - Lab Results Most recent lab results Calcium 5.7 mg/dL (8.4-10.2) L* 08/22/23 07:28 Phosphorus 7.3 mg/dL (2.5-4.5) H 08/22/23 07:28 08/22/23 07:29 08/22/23 07:28 Assessment and Plan Assessment: 1. End-stage renal disease on peritoneal dialysis with significant noncompliance as outpatient. Patient will be switched to hemodialysis. Patient states that she will be more compliant with PD exchanges in the future however given the significant abnormal labs with the persistent history of noncompliance, we will proceed with hemodialysis. PD catheter will not be removed yet. 2. Severe metabolic acidosis secondary to noncompliance with peritoneal dialys is. 3. CKD mineral bone disorder with hyperphosphatemia. 4. Hypertension with CKD stage V Plan: Proceed with hemodialysis catheter placement. Patient may need hemodialysis in a.m. if acidosis is not further improved. Continue with oral sodium bicarb Repeat labs in AM. Awaiting outpatient chair time. Continue with peritoneal dialysis exchanges for now. Thank you for the consultation. Will continue to follow the patient with you during her hospitalization.
[2023-08-23] MEDS ORDERED: fentaNYL (PF) 50 MCG/ML 2 ML AMP ONE ×2 (07:58→09:31)
[2023-08-23] MEDS ORDERED: HEPARIN SODIUM 1,000 UN/ML (10ML VL) ONE (08:02)
[2023-08-23] MEDS: MIDAZOLAM 2 MG/2 ML VIAL IVP ONE ×2 (08:10→09:32)
[2023-08-23] MEDS: fentaNYL (PF) 50 MCG/ML 2 ML AMP IVP ONE ×5 (08:10→10:30)
[2023-08-23] MEDS: LIDOCAINE 1% INJ 10MG/ML (20 ML MDV) SQ ONE (08:15)
[2023-08-23] MEDS ORDERED: LIDOCAINE 1% INJ 10MG/ML (20 ML MDV) ONE ×2 (08:25→09:15)
[2023-08-23] MEDS ORDERED: ONDANSETRON 4 MG/2 ML VIAL ONE (08:39)
--- NOTE | 2023-08-23 10:00 | XR ---
EXAMINATION TYPE: XR chest 1V DATE OF EXAM: 08/23/2023 COMPARISON: 08/23/2023 INDICATION: Hemodialysis catheter placement TECHNIQUE: Single frontal view of the chest is obtained. FINDINGS: The heart size is normal. The pulmonary vasculature is normal. There is a moderate lateral right pleural fluid collection. Mild diffuse increased lung markings into the right lung. Correlate for atelectasis or typical pulmonary edema. Placement of a catheter on the right with the tips in the deep right atrium. IMPRESSION: 1. Placement of a catheter with tips in the deep right atrium. No pneumothorax evident. 2. Lateral right pleural fluid collection. Some adjacent mild diffuse atelectasis may be present with in the right
--- NOTE | 2023-08-23 10:05 | P.OP ---
Date of Procedure: 08/23/23 Preoperative Diagnosis: CKD 5 with need for hemodialysis. Postoperative Diagnosis: Same. Procedure(s) Performed: Ultrasound and fluoroscopically guided placement of a tunneled hemodialysis catheter via the right internal jugular vein approach. Anesthesia: MAC (50 mcg of fentanyl with 1 mg of Versed), local (1% Xylocaine) Surgeon: Markos Johnson Estimated Blood Loss (ml): 5 Pathology: none sent Condition: other Disposition: ICU Indications for Procedure: Patient is a 22-year-old female with a longstanding history of polycystic kidney disease requiring dialysis. She is currently being dialyzed via peritoneal dialysis catheter however this has not been quite as effective as otherwise anticipated and it was recommended to convert to hemodialysis. As such a tunneled hemodialysis catheter will with recommended. The procedure, risk and benefits were discussed. All questions answered. Consent form was signed. Description of Procedure: Patient was brought to the cardiac catheterization laboratory. The patient was placed in the supine position. Lateral neck supraclavicular and anterior chest wall areas were sterilely prepped and draped in usual manner. Ultrasound identified the right internal jugular vein which appeared normally compressible and free of visible thrombus. The patient did receive 1 mg of Versed and 50 mg of fentanyl for attended IV sedation. 1% Xylocaine was utilized for local anesthesia. Through this anesthetized area with the aid of ultrasound a micropuncture needle was utilized to cannulate the vein. Once cannulated soft tipped guidewire was advanced into the vein. The needle was withdrawn and the micropuncture sheath and dilator were advanced over the guidewire without resistance. The wire and dilator were withdrawn and through the micro puncture sheath a 0.035 inch guidewire was advanced without issue. Its position within the IVC was confirmed with fluoroscopy. Just inferior and lateral to the angle of clavicle 1% Xylocaine was utilized for local anesthesia. Xylocaine was also utilized to anesthetize the skin between the anterior chest wall and anticipated incision site in the neck wound. Skin incision was made anterior chest wall and a 23 cm tunneled hemodialysis catheter was advanced to the neck wound. Vessel dilators of progressively increasing size were advanced over the guidewire and eventually the dialysis catheter sheath and dilator were advanced over the guidewire. Guidewire and dilator were withdrawn and through the sheath the catheter was advanced. The sheath was peeled away. Imaging demonstrated the catheter to be in good position without undue kinking or other identified issue. Blood was easily aspirated through both lumens and each lumen was flushed with appropriate volume of heparinized saline solution and a cap was placed on each lumen. Catheter was secured to the skin with nylon suture and the neck wound was closed with nylon suture. Appropriate dressings were applied. Patient tolerated the procedure well however began to experience some right l ateral chest pain. Imaging demonstrated what appeared to be hemo-/pneumothorax. Please see subsequent operative report for details.
--- NOTE | 2023-08-23 10:06 | XR ---
EXAMINATION TYPE: XR chest 1V DATE OF EXAM: 08/23/2023 COMPARISON: 08/23/2023 INDICATION: Chest tube placement TECHNIQUE: Single frontal view of the chest is obtained. FINDINGS: The heart size is normal. The pulmonary vasculature is normal. Small to moderate right lateral pleural effusion. This is diminished from the earlier examination fol lowing placement of a right-sided chest tube. Catheter is present on the right with the tip in the de ep right atrium. IMPRESSION: 1. Slightly diminished lateral right pleural effusion following right-sided chest tube placement.
--- NOTE | 2023-08-23 10:18 | P.OP ---
Date of Procedure: 08/23/23 Preoperative Diagnosis: Right hemo-/pneumothorax, status post insertion of tunneled hemodialysis catheter via the right internal jugular vein approach Postoperative Diagnosis: #1: Right hemo-/pneumothorax, status post insertion of tunneled hemodialysis catheter via right internal jugular vein approach.. Procedure(s) Performed: Placement of a 20 Cameroonian chest tube into the right pleural cavity. Anesthesia: MAC (2 mg of Versed and 50 mcg of fentanyl), local (1% Xylocaine) Surgeon: Markos Johnson Estimated Blood Loss (ml): 300 Pathology: none sent Condition: stable Disposition: ICU Indications for Procedure: Patient had just undergone placement of a tunneled hemodialysis catheter via the right internal jugular vein approach. Shortly after completing the procedure the patient began to complain of right-sided chest pain. Imaging demonstrated findings consistent with either hemo and/or pneumothorax. Patient's oxygen saturation dropped and her blood pressure also decreased. Due to the large size of the pneumothorax patient was offered chest tube. Description of Procedure: Patient was in the supine position. The right lateral chest area sterilely prepped and draped in usual manner. She did receive both fentanyl and Versed for moderate conscious sedation purposes. 1% Xylocaine was utilized for local anesthesia of the tissues in the mid axillary line at the nipple level. Through this anesthetized area skin incision was made and a chest tube was utilized to spread the soft tissues and gain entrance into the pleural cavity. A 20 Cameroonian chest tube was placed without difficulty and immediately approximately 120 cc of blood was returned. The catheter was secured in place and attached to suction collection device. Eventually by the end of the procedure 300 cc of blood had been collected. Vaseline gauze, and 4 x 4's were placed about the insertion site and these were then taped in place and the catheter was secured. Patient tolerated procedure well. She will be transferred to the intensive care unit. Communication with the ICU physician on-call was completed and he excepted the patient. We have also asked cardiovascular surgery to evaluate the patient. Phone call was made to the patient's father Magdaleno and the situation was fully discussed with him.
[2023-08-23] MEDS: SODIUM CHLORIDE 0.9% 500 ML 500 ML IV ONE (10:19)
--- NOTE | 2023-08-23 11:19 | IR ---
EXAMINATION TYPE: IR cvc insert central tunneled Intraoperative/procedural fluoroscopic services were provided. CLINICAL INDICATION:Female, 22 years old with history of Dialysis, 0.6m/0.33DAP, rt IJ 14.5F x 23cm St dialysis cath; , [facility] Total fluoroscopy time is 0.3 min. DAP: 0.234 Gycm2 uGym2 Please see the operative/procedural note for further details.
--- NOTE | 2023-08-23 11:22 | P.PN ---
Subjective Patient is seen in follow-up for end-stage renal disease. Patient was maintained on peritoneal dialysis but was not doing her treatments outpatient. She had a permacath placed this morning and will be transitioned to in center hemodialysis. Patient developed right hemothorax post insertion of the dialysis catheter and now has a chest tube. Vital signs are stable. General: No acute distress. HEENT: Head exam is unremarkable. LUNGS: Chest tube noted. HEART: Rate and Rhythm are regular. ABDOMEN: PD catheter noted. EXTREMITITES: 1+ edema. Objective - Vital Signs Vital signs: Vital Signs Temp 97.4 F L 08/23/23 10:00 Pulse 85 08/23/23 11:15 Resp 18 08/23/23 11:15 BP 109/67 08/23/23 11:15 Pulse Ox 98 08/23/23 11:15 FiO2 Intake & Output 08/22/23 08/23/23 08/23/23 18:59 06:59 18:59 Intake Total 500 Balance 500 Intake: IV 500 Other: # Voids 2 0 # Bowel Movements 1 - Labs CBC & Chem 7: 08/22/23 07:29 08/22/23 07:28 Assessment and Plan Plan: Assessment: 1. End-stage renal disease maintained on peritoneal dialysis now being transition to in center hemodialysis due to noncompliance. 2. Status post permacath placement this morning with subsequent right-sided hemothorax. Has chest tube. 3. Alport syndrome. 4. Metabolic acidosis secondary to chronic kidney disease and noncompliance with dialysis treatments. 5. Chronic kidney disease mineral bone disease. Calcium 5.7 and phosphorus 7.3. On PhosLo. 6. Anemia of chronic kidney disease. 7. Hypertension with chronic kidney disease. Controlled. Plan: Stop PD after current exchange. 2-hour hemodialysis treatment today. Maintain bicarb for now. Maintain torsemide. Again stressed compliance with medications and dialysis treatments outpatient. Life-threatening complications, including , have been discussed with the patient multiple times. PD catheter to be removed prior to discharge.
[2023-08-23 11:42] LABS: Glucose,Whole Blood 131 mg/dL (70-110)
--- NOTE | 2023-08-23 12:20 | P.CNPUL ---
History of Present Illness Consult date: 08/23/23 Requesting physician: Markos Johnson Reason for consult: pneumothorax Chief complaint: Acute on chronic renal failure History of present illness: This is a 22-year-old female patient with a history of hypertension, chronic kidney disease, stage V, and had been on peritoneal dialysis however was quite noncompliant and had worsening lab values. She was initially at [facility] and was to have a permacath placed and to be initiated on hemodialysis however vascular surgery was not available. She was transferred here for the same. Earlier today a tunneled hemodialysis catheter was placed via the right internal jugular vein. Following the procedure she developed a hemothorax and a right-sided chest tube was placed. She was transferred to the intensive care unit for closer monitoring. Currently she is resting in bed. Awake and alert in no acute distress. There is approximately 500 mL of bloody return from her chest tube thus far. Patient is up to 100% on 2 L nasal cannula. She has been afebrile. Hemodynamically stable. Globin 8.7. Platelets 139. Sodium 142. Potassium 4.6. Bicarb 12. BUN 82. Creatinine 11.7. Glucose 131. hCG was negative. Her peritoneal dialysis will be completed and the plan is for 2 hours hemodialysis today. Review of Systems REVIEW OF SYSTEMS: CONSTITUTIONAL: Denies any recent significant weight loss or weight gain. EYES: Denies change in vision. EARS, NOSE, MOUTH, THROAT: Denies headaches, denies sore throat. CARDIOVASCULAR: Denies chest pain, palpitations or syncopal episodes. RESPIRATORY: Denies shortness of breath, cough, congestion or hemoptysis. GASTROINTESTINAL: Denies change in appetite, denies abdominal pain GENITOURINARY: Denies hematuria, denies infections. MUSKULOSKELETAL: Denies pain, denies swelling. INTEGUMENTARY: Denies rash, denies eczema. NEUROLOGICAL: Denies recent memory loss, no recent seizure activity. PSYCHIATRIC: Denies anxiety, denies depression. HEMATOLOGIC/LYMPHATIC: Denies anemia, denies enlarged lymph nodes. 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 History of Any Multi-Drug Resistant Organisms: None Reported Past Surgical History: No Surgical Hx Reported, Section Additional Past Surgical History / Comment(s): Permacaths to chest x 2 Past Anesthesia/Blood Transfusion Reactions: No Reported Reaction Past Psychological History: No Psychological Hx Reported Smoking Status: Never smoker Past Alcohol Use History: None Reported Past Drug Use History: None Reported - Past Family History Father Family Medical History: No Reported History Mother Family Medical History: No Reported History Medications and Allergies Home Medications Medication Instructions Recorded Confirmed Type Labetalol [Trandate] 200 mg PO BID 11/08/22 08/21/23 History Medroxyprogesterone Acetate 150 mg IM Q90D 11/08/22 08/21/23 History [Depo-Provera] Torsemide [Demadex] 20 mg PO DAILY 11/08/22 08/21/23 History Calcium Acetate 667 mg PO TID-W/MEALS 08/21/23 08/21/23 History Calcium Acetate [Phoslo] 667 mg PO DAILY PRN 08/21/23 08/21/23 History Sodium Bicarbonate Tab 650 mg PO QID 08/21/23 08/21/23 History amLODIPine [Norvasc] 10 mg PO DAILY 08/21/23 08/21/23 History calcitrioL 0.5 mcg PO DAILY 08/21/23 08/21/23 History Allergies Allergy/AdvReac Type Severity Reaction Status Date / Time No Known Allergies Allergy Verified 08/21/23 21:13 Physical Exam Vitals: Vital Signs Temp Pulse Pulse Pulse Resp BP BP 08/23/23 11:28 83 18 120/75 08/23/23 11:15 85 18 109/67 08/23/23 11:00 84 18 108/66 08/23/23 10:45 84 20 104/63 08/23/23 10:30 87 24 96/50 08/23/23 10:15 90 21 105/74 08/23/23 10:00 97.4 F L 81 16 99/74 08/23/23 07:39 98.3 F 99 18 133/84 08/23/23 05:27 98.4 F 96 16 124/81 08/23/23 01:29 98.7 F 98 18 117/80 08/23/23 00:30 98.4 F 88 16 116/75 08/22/23 20:02 147/75 08/22/23 19:27 98.3 F 93 16 96/63 08/22/23 14:53 97.9 F 106 H 16 110/68 08/22/23 14:37 98.2 F 114 H 18 103/69 Pulse Ox 08/23/23 11:28 96 08/23/23 11:15 98 08/23/23 11:00 100 08/23/23 10:45 98 08/23/23 10:30 100 08/23/23 10:15 99 08/23/23 10:00 100 08/23/23 07:39 98 08/23/23 05:27 99 08/23/23 01:29 99 08/23/23 00:30 100 08/22/23 20:02 08/22/23 19:27 98 08/22/23 14:53 99 08/22/23 14:37 98 Intake and Output 08/22/23 08/23/23 08/23/23 22:59 06:59 14:59 Intake Total 500 Balance 500 Intake: IV 500 Other: # Voids 0 GENERAL EXAM: Alert, 22-year-old female, on 2 L nasal cannula, fairly comfortable in no apparent distress. HEAD: Normocephalic. EYES: Normal reaction of pupils, equal size. NOSE: Clear with pink turbinates. THROAT: No erythema or exudates. NECK: No masses, no JVD. Right IJ permacath in place. Dressing dry. CHEST: No chest wall deformity. Right-sided chest tube remains in place to Pleur-evac and wall suction. LUNGS: Equal air entry with scattered rhonchi over the right lung. CVS: S1 and S2 normal with no audible murmur, regular rhythm. ABDOMEN: No hepatosplenomegaly, normal bowel sounds, no guarding or rigidity. SPINE: No scoliosis or deformity SKIN: No rashes CENTRAL NERVOUS SYSTEM: No focal deficits, tone is normal in all 4 extremities. EXTREMITIES: There is no peripheral edema. No clubbing, no cyanosis. Peripheral pulses are intact. Results - Laboratory Findings CBC and BMP: 08/22/23 07:29 08/22/23 07:28 Abnormal lab findings: Abnormal Labs 08/22/23 08/22/23 08/22/23 07:28 07:28 07:29 RBC 3.06 L Hgb 8.7 L Hct 29.9 L MCHC 29.2 L Plt Count 139 L Chloride 114 H Carbon Dioxide 12 L BUN 82 H Creatinine 11.73 H* POC Glucose (mg/dL) Calcium 5.7 L* Phosphorus 7.3 H 08/23/23 11:40 RBC Hgb Hct MCHC Plt Count Chloride Carbon Dioxide BUN Creatinine POC Glucose (mg/dL) 131 H Calcium Phosphorus - Diagnostic Findings Chest x-ray: image reviewed Assessment and Plan Assessment: Acute on chronic kidney disease, stage V, noncompliant with peritoneal dialysis requiring conversion to hemodialysis Iatrogenic right-sided hemothorax following right internal jugular permacath placement Severe metabolic acidosis secondary to noncompliance with peritoneal dialysis. Plan is for hemodialysis today Chronic kidney disease mineral bone disorder with hyperphosphatemia Hypertension Plan: The patient was seen and evaluated Chest x-rays, labs and medications reviewed Will initiate DDAVP Continue to monitor chest tube output Cardiothoracic consultation Plan is for completing peritoneal exchange today Plan is for hemodialysis today Titrate the FiO2 as tolerated We will continue to follow and make further recommendations based on her clinical status I have personally seen and examined the patient, performed the documentation and the assessment and plan as written. Number of minutes spent on the visit: 20.
[2023-08-23] MEDS: MORPHINE SULFATE 4 MG/ML SYRINGE IVP PRN ×2 (12:27→16:30)
--- NOTE | 2023-08-23 12:41 | XR ---
EXAMINATION TYPE: XR chest 1V portable DATE OF EXAM: 08/23/2023 12:22 PM CLINICAL INDICATION:Female, 22 years old with history of hemothorax; COMPARISON: Chest radiographs from 08/23/2023 TECHNIQUE: XR chest 1V portable Frontal view of the chest. FINDINGS: Lungs/Pleura: Blunting of the right costophrenic angle and fluid within the right major fissure. Ther e is no evidence of left pleural effusion, focal consolidation, or pneumothorax. Pulmonary vascularity: Unremarkable. Heart/mediastinum: Cardiomediastinal silhouette is unremarkable. Musculoskeletal: No acute osseous pathology. Right chest central venous catheter tip projecting over the right atrium. No pneumothorax. Right thor acotomy tube with no evidence of obvious pneumothorax. IMPRESSION: 1. No acute cardiopulmonary disease/process. 2. Appropriate placement of right central venous catheter and right chest tube. There is small right pleural effusion. 3. Mild cardiomegaly.
[2023-08-23] MEDS: DESMOPRESSIN ACETATE 4 MCG/ML VIAL (MDV) SQ ONE (13:09)
--- NOTE | 2023-08-23 13:25 | P.PN ---
Subjective Progress Note Date: 08/23/23 This is a pleasant 22-year-old female with past medical history significant for polycystic kidney disease, requiring dialysis a couple years ago. Reports prior hemodialysis via tunneled catheters with last one removed in early July 2023. Patient was initially admitted to [facility], for tunneled catheter placement secondary to worsening renal function. Vascular surgery services were not available at that site and patient was transferred over to [facility]. Reports last peritoneal dialysis was completed yesterday evening. Nephrology and vascular surgery consults in place. Denies chest pain, palpitations or shortness of breath. Denies lightheadedness, dizziness or focal deficits. Denies headache. Denies nausea vomiting. Patient has no complaints. Vital signs stable, maintaining O2 sats of 100% on room air. 08/22. Patient seen and examined. Patient had right-sided tunneled IJ catheter placed following that patient developed hemothorax and the chest tube was placed. Patient will be transferred to ICU. Currently patient is complaining of pain. Denies any shortness of breath. Denies any cough REVIEW OF SYSTEMS: CONSTITUTIONAL: No fever, no malaise,. CARDIOVASCULAR: no palpitations, no syncope. PULMONARY: As mentioned above GASTROINTESTINAL: No diarrhea, no nausea, no vomiting, no abdominal pain. NEUROLOGICAL: No headaches, no weakness, PHYSICAL EXAMINATION: GENERAL: The patient is alert and oriented x3, not in any acute distress. Well developed, well nourished. HEENT: Pupils are round and equally reacting to light. EOMI. No scleral icterus. No conjunctival pallor. Normocephalic, atraumatic. No pharyngeal erythema. No thyromegaly. CARDIOVASCULAR: S1 and S2 present. No murmurs, rubs, or gallops. PULMONARY: Chest is clear to auscultation, no wheezing or crackles. Right-sided chest tube seen ABDOMEN: Soft, nontender, nondistended, normoactive bowel sounds. No palpable organomegaly. MUSCULOSKELETAL: No joint swelling or deformity. EXTREMITIES: No cyanosis, clubbing, or pedal edema. NEUROLOGICAL: Gross neurological examination did not reveal any focal deficits. SKIN: No rashes. Assessment and plan Iatrogenic right-sided hemothorax following right internal jugular permacath placement Severe metabolic acidosis secondary to noncompliance with peritoneal dialysis. ESRD on peritoneal dialysis, now requiring hemodialysis History of polycystic kidney disease Morbid obesity, BMI 32.4 Monitor vital signs Monitor CBC Monitor CMP Continue chest tube management per pulmonology Continue dialysis per nephrology CT surgery consulted Nephrology following Labs and medication were reviewed.. Continue same treatment. Continue with sym ptomatic treatment. Resume home medication. Monitor labs and vitals. DVT and GI prophylaxis. Further recommendations as per clinical course of the patient Dictation was produced using Bracket[employer] dictation software. please excuse any grammatical, word or spelling errors. Objective - Vital Signs Vital signs: Vital Signs Temp 97.6 F 08/23/23 12:00 Pulse 80 08/23/23 12:00 Resp 24 08/23/23 12:00 BP 137/106 08/23/23 12:00 Pulse Ox 98 08/23/23 12:00 FiO2 Intake & Output 08/22/23 08/23/23 08/23/23 18:59 06:59 18:59 Intake Total 500 Output Total 500 Balance 0 Intake: IV 500 Output: Drainage 500 CHEST TUBE RIGHT SIDE 500 Urine 0 Other: # Voids 2 0 # Bowel Movements 1 - Labs CBC & Chem 7: 08/22/23 07:29 08/22/23 07:28 Labs: Abnormal Lab Results - Last 24 Hours (Table) 08/23/23 Range/Units 11:40 POC Glucose (mg/dL) 131 H (70-110) mg/dL
--- NOTE | 2023-08-23 14:31 | P.CON ---
Consult Note - . Consult date: 08/23/23 Assessment/Plan:: This is a pleasant 22-year-old female with past medical history significant for polycystic kidney disease, requiring dialysis a couple years ago. Reports prior hemodialysis via tunneled catheters with last one removed in early July 2023. Patient was initially admitted to [facility], for tunneled catheter placement secondary to worsening renal function. Vascular surgery services were not available at that site and patient was transferred over to [facility]. Reports last peritoneal dialysis was completed yesterday evening. Review of Systems Constitutional: Denied any fatigue denied any fever. Cardio vascular: denied any chest pain, palpitations Gastrointestinal denied any nausea vomiting Pulmonary: Denied any shortness of breath cough Neurologic denied any new focal deficits ROS Statement: Those systems with pertinent positive or pertinent negative responses have been documented in the HPI. ROS Other: All systems not noted in ROS Statement are negative. 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 History of Any Multi-Drug Resistant Organisms: None Reported Past Surgical History: No Surgical Hx Reported, Section Additional Past Surgical History / Comment(s): Permacaths to chest x 2 Past Anesthesia/Blood Transfusion Reactions: No Reported Reaction Past Psychological History: No Psychological Hx Reported Smoking Status: Never smoker Past Alcohol Use History: None Reported Past Drug Use History: None Reported PHYSICAL EXAM: VITAL SIGNS: [As above] GENERAL: Alert and oriented x 3, sitting up in bed, no acute distress. HEENT: Normocephalic, atraumatic, conjunctivae normal. eyes normal. NECK: Supple, no JVD. No thyroid enlargement. No LNs CARDIOVASCULAR: S1, S2 regular.. No murmur RESPIRATION: Unlabored, equal air entry, clear to auscultation. ABDOMEN: Obese, soft, nondistended, nontender . PD catheter present. no guarding. no masses palpable. No ascites, No hepatosplenomegaly.Bowel sounds heard. LEGS: No edema. no swelling NERVOUS SYSTEM: Cranial N 2-12 grossly normal. No focal deficits. Strength and sensation grossly intact. Skin: Warm and dry, no rash 22 year old female with PD catheter with request to removed PD catheter prior to discharge -HD catheter placed today -Will defer to Dr Le for timing of removal of PD catheter
[2023-08-23 14:58] LABS: African American GFR (CKD) 5 (>60 ml/min/1.73 sqM); Anion Gap 10 mmol/L; Blood Urea Nitrogen 66 mg/dL (7-17); Carbon Dioxide 19 mmol/L (22-30); Chloride 109 mmol/L (98-107); Glucose 108 mg/dL (74-99); Magnesium 1.1 mg/dL (1.6-2.3); Non-African American GFR(CKD) 5 (>60 ml/min/1.73 sqM); Phosphorus 5.8 mg/dL (2.5-4.5); Potassium 4.1 mmol/L (3.5-5.1); Sodium 138 mmol/L (137-145)
[2023-08-23 15:17] LABS: Calcium 5.3 mg/dL (8.4-10.2)
--- NOTE | 2023-08-23 15:27 | P.GSCN ---
History of Present Illness Consult date: 08/23/23 Reason for Consult: Right hemothorax Requesting physician: Markos Johnson History of present illness: This is a 22-year-old female who follows on outpatient basis with Dr. Hubert Keyes for her primary care. She has a past medical history significant for chronic kidney disease with end-stage renal disease requiring hemodialysis, Alport Syndrome, hypertension and is a lifetime non-smoker. Recently has no patient she has been treated for her chronic kidney disease with peritoneal dialysis. She states on Friday she was instructed to present to the emergency department at [facility] for further evaluation and treatment recommendation due to some elevated labs. She denies any recent fever, chills, nausea, vomiting, diarrhea, constipation, shortness of breath, chest pain, chest pressure, edema, visual disturbances, headache, presyncope or syncope. According to the patient's medical record she has been noncompliant with her dialysis exchanges. Subsequently, the patient was transferred from [facility] to [facility] for placement of dialysis catheter by vascular surgery. Subsequently, during the placement of the hemodialysis catheter via the right internal jugular vein approach the patient developed a right hemo-/pneumothorax and underwent a right pleural chest tube placement by Dr. Johnson. Due to the development of a right hemo-/pneumothorax a consult was placed for Dr. Robert Crump from cardiothoracic surgery for further evaluation and treatment recommendations regarding the hemo- /pneumothorax. Review of Systems A review of systems was completed and was negative except as mentioned in the HPI. 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 History of Any Multi-Drug Resistant Organisms: None Reported Past Surgical History: No Surgical Hx Reported, Section Additional Past Surgical History / Comment(s): Permacaths to chest x 2, partial hysterectomy Past Anesthesia/Blood Transfusion Reactions: No Reported Reaction Past Psychological History: No Psychological Hx Reported Smoking Status: Never smoker Past Alcohol Use History: None Reported Past Drug Use History: None Reported - Past Family History Father Additional Family Medical History / Comment(s): Alport syndrome Mother Family Medical History: No Reported History Medications and Allergies Home Medications Medication Instructions Recorded Confirmed Type Labetalol [Trandate] 200 mg PO BID 11/08/22 08/21/23 History Medroxyprogesterone Acetate 150 mg IM Q90D 11/08/22 08/21/23 History [Depo-Provera] Torsemide [Demadex] 20 mg PO DAILY 11/08/22 08/21/23 History Calcium Acetate 667 mg PO TID-W/MEALS 08/21/23 08/21/23 History Calcium Acetate [Phoslo] 667 mg PO DAILY PRN 08/21/23 08/21/23 History Sodium Bicarbonate Tab 650 mg PO QID 08/21/23 08/21/23 History amLODIPine [Norvasc] 10 mg PO DAILY 08/21/23 08/21/23 History calcitrioL 0.5 mcg PO DAILY 08/21/23 08/21/23 History Allergies Allergy/AdvReac Type Severity Reaction Status Date / Time No Known Allergies Allergy Verified 08/21/23 21:13 Surgical - Exam Vital Signs Temp Pulse Resp BP Pulse Ox 99.0 F 100 16 145/102 100 08/21/23 21:04 08/21/23 21:04 08/21/23 21:04 08/21/23 21:04 08/21/23 21:04 - General well developed, well nourished, no distress, no pain, chronically ill, obese - Eyes PERRL, normal ocular movement, no pale, no icteric - ENT normal pinna, normal nares, normal mucosa, no hearing loss, no congestion - Neck Neck is supple, no lymphadenopathy. no masses, no bruits, trachea midline, no venous distension - Respiratory Lung sounds essentially clear throughout. Diminished to her bilateral bases right greater than left. No wheezes, rhonchi or crackles. Right pleural chest tube in place to low continuous wall suction -20 cm H2O. No air leak is present. Draining thin serosanguineous drainage. - Cardiovascular Regular rhythm and rate. S1 and S2 present, negative for S3, gallop or murmur. No peripheral edema. - Abdomen Abdomen is soft, nontender and nondistended. Active bowel sounds present all 4 abdominal quadrants. No guarding rigidity. No organomegaly appreciated. Peritoneal dialysis catheter in place. - Genitourinary Initiation of hemodialysis today. Right chest dialysis catheter in place. - Rectum Deferred - Integumentary Skin is warm and dry. No clubbing or cyanosis is present. no rash, no growths, no abnormal pigmentation - Neurologic No focal deficits. normal coordination, normal sensation - Musculoskeletal Moves all 4 extremities with equal strength bilateral. - Psychiatric oriented to time, oriented to person, oriented to place, speech is normal, memory intact Results - Labs 08/25/23 05:40 08/25/23 05:40 Abnormal Lab Results - Last 24 Hours (Table) 08/23/23 Range/Units 11:40 POC Glucose (mg/dL) 131 H (70-110) mg/dL - Imaging Chest x-ray: report reviewed, image reviewed Assessment and Plan Assessment: Right hemo-/pneumothorax, status post chest tube placement by Dr. Johnson Alport syndrome, end-stage renal disease on peritoneal dialysis with significant noncompliance as outpatient status post hemodialysis catheter placement by Dr. Johnson Hypertension Morbid obesity with BMI of 32.4 kg/m Plan: The patient was seen and examined in the intensive care unit at her bedside in conjunction with Dr. Crump from cardiothoracic surgery. Her chart and diagnostics were reviewed. Dr. Crump discussed with the patient the need for obtaining a CT of the chest without contrast once she has completed her hemodialysis treatment today. Keep right pleural chest tube to low continuous wall suction for 24 hours. Will reevaluate on August 24, 2023 and possibly put to waterseal. No surgical intervention is warranted at this time. Continue to monitor strict output from the chest tube. Encourage use of incentive spirometry 10 times every hour while awake. Monitor daily chest x-rays. More recommendations to follow based on patient's clinical course. Medical management and other comorbidities per primary care, nephrology and vascular service. Thank you for this consult and we look forward to working with you in the care of this patient Attending Addendum: Pt seen and evaluated with BATTERY CHARGER above. Agree with his assessment and plan. I spent 35 minutes reviewing the data and discussing plan of care with the team. Time with Patient: Greater than 30
[2023-08-23] MEDS: MAGNESIUM SULFATE-D5W PMX 1 GM in DEXTROSE/WATER 1 100ML.BAG IVPB SCH (16:13)
[2023-08-23] MEDS: CALCIUM GLUCONATE IN NACL 2 GM in SALINE 1 100ML.BAG IVPB ONE (16:13)
[2023-08-23] MEDS: ONDANSETRON 4 MG/2 ML VIAL IVP PRN (16:31)
[2023-08-23] MEDS: ALTEPLASE 2 MG VIAL (CATHFLO) IV STA ×2 (16:44→16:45)
[2023-08-23 17:05] LABS: Basophils % (A) 0 %; Eosinophils % (A) 1 %; Lymphocytes # (A) 0.7 k/uL (1.0-4.8); Lymphocytes % (A) 11 %; MCH 29.2 pg (25.0-35.0); MCHC 32.5 g/dL (31.0-37.0); Mean Platelet Volume 9.8; Monocytes # (A) 0.2 k/uL (0-1.0); Monocytes % (A) 4 %; Neutrophils # (A) 5.2 k/uL (1.3-7.7); Neutrophils % (A) 84 %; Platelet Count 142 k/uL (150-450); RBC 2.05 m/uL (3.80-5.40); RDW 13.5 % (11.5-15.5); WBC 6.2 k/uL (3.8-10.6)
[2023-08-23 17:16] LABS: HCT 18.4 % (34.0-46.0); MCV 89.9 fL (80.0-100.0)
--- NOTE | 2023-08-23 19:18 | CT ---
EXAMINATION TYPE: CT chest wo con DATE OF EXAM: 08/23/2023 COMPARISON: None HISTORY: Right hemothorax. CT DLP: 390.[address] of the chest was performed with lung and mediastinal window settings submitted. The la ck of contrast limits evaluation of the vascular, mediastinal and parenchymal structures including th e upper abdomen. LUNGS: There is a right-sided chest tube noted to be in place. There is a moderate to large right-edgar ed hemothorax. There is a small less than 10% pneumothorax appreciated. There is evidence for madeline sive atelectasis. MEDIASTINUM/JUSTO: Thoracic aorta is of normal caliber with limited evaluation given lack of contrast . The heart is not enlarged. No evidence for mediastinal mass. No lymph nodes greater than 1cm. UPPER ABDOMEN: No significant abnormality is seen. OTHER: No significant other abnormality. IMPRESSION: 1. Right-sided pneumothorax as discussed above. Small residual pneumothorax.
[2023-08-23 19:46] LABS: African American GFR (CKD) 6 (>60 ml/min/1.73 sqM); Anion Gap 11 mmol/L; Blood Urea Nitrogen 57 mg/dL (7-17); Calcium 6.8 mg/dL (8.4-10.2); Carbon Dioxide 16 mmol/L (22-30); Chloride 109 mmol/L (98-107); Glucose 112 mg/dL (74-99); Non-African American GFR(CKD) 5 (>60 ml/min/1.73 sqM); Potassium 4.4 mmol/L (3.5-5.1); Sodium 136 mmol/L (137-145)
[2023-08-24 01:17] LABS: Basophils % (A) 0 %; Eosinophils # (A) 0.1 k/uL (0-0.7); Eosinophils % (A) 2 %; HCT 20.9 % (34.0-46.0); HGB 7.1 gm/dL (11.4-16.0); Lymphocytes # (A) 1.4 k/uL (1.0-4.8); Lymphocytes % (A) 24 %; MCH 30.9 pg (25.0-35.0); MCHC 33.8 g/dL (31.0-37.0); MCV 91.4 fL (80.0-100.0); Monocytes # (A) 0.2 k/uL (0-1.0); Monocytes % (A) 4 %; Neutrophils % (A) 69 %; Platelet Count 120 k/uL (150-450); RBC 2.28 m/uL (3.80-5.40); RDW 13.5 % (11.5-15.5); WBC 5.8 k/uL (3.8-10.6)
[2023-08-24 02:02] LABS: INR 1.1 (<1.2); Partial Thromboplastin Time 25.9 sec (22.0-30.0); Prothrombin Time 11.9 sec (10.0-12.5)
[2023-08-24 05:26] LABS: Basophils % (A) 0 %; Eosinophils # (A) 0.1 k/uL (0-0.7); Eosinophils % (A) 1 %; HCT 20.1 % (34.0-46.0); Lymphocytes # (A) 1.2 k/uL (1.0-4.8); Lymphocytes % (A) 18 %; MCH 30.3 pg (25.0-35.0); MCHC 32.6 g/dL (31.0-37.0); MCV 92.8 fL (80.0-100.0); Mean Platelet Volume 8.9; Monocytes # (A) 0.3 k/uL (0-1.0); Monocytes % (A) 5 %; Neutrophils % (A) 75 %; Platelet Count 120 k/uL (150-450); RBC 2.17 m/uL (3.80-5.40); RDW 13.4 % (11.5-15.5); WBC 6.7 k/uL (3.8-10.6)
[2023-08-24 05:30] LABS: HGB 6.6 gm/dL (11.4-16.0)
[2023-08-24 05:39] LABS: African American GFR (CKD) 6 (>60 ml/min/1.73 sqM); Anion Gap 11 mmol/L; Blood Urea Nitrogen 59 mg/dL (7-17); Calcium 6.5 mg/dL (8.4-10.2); Carbon Dioxide 18 mmol/L (22-30); Chloride 106 mmol/L (98-107); Glucose 101 mg/dL (74-99); Non-African American GFR(CKD) 5 (>60 ml/min/1.73 sqM); Potassium 4.1 mmol/L (3.5-5.1); Sodium 135 mmol/L (137-145)
--- NOTE | 2023-08-24 07:55 | XR ---
EXAMINATION TYPE: XR chest 1V portable DATE OF EXAM: 08/24/2023 COMPARISON: NONE HISTORY: Right hemo-/pneumothorax TECHNIQUE: Single frontal view of the chest is obtained. FINDINGS: Right-sided chest tube is in place with opacity overlying the right hemithorax. Pneumothorax is not v isible on chest x-ray. Mild pulmonary vascular congestion left chest. Large bore central venous line. IMPRESSION: 1. Right-sided chest tube is in place with opacity overlying the right hemithorax. Pneumothorax is n ot visible on chest x-ray.
[2023-08-24 07:59] LABS: Hepatitis B Surface Antigen Nonreactive (Nonreactive)
--- NOTE | 2023-08-24 09:19 | P.PN ---
Subjective Progress Note Date: 08/24/23 Patient seen and examined at bedside. Per nursing notes overnight some significant bleeding from the access site was noted. Patient states she is doing well and denies any new pain. She states she is breathing okay but having difficulty with deep inspiration. Objective - Vital Signs Vital signs: Vital Signs Temp 97.9 F 08/24/23 04:00 Pulse 98 08/24/23 07:00 Resp 35 H 08/24/23 07:00 BP 124/74 08/24/23 07:00 Pulse Ox 97 08/24/23 07:00 FiO2 Intake & Output 08/23/23 08/24/23 08/24/23 18:59 06:59 18:59 Intake Total 1300 310 Output Total 1997 350 0 Balance -698 -40 0 Weight 75 kg Intake: IV 500 Intake, IV Titration 350 Amount Calcium Gluconate in NaCl 100 2 gm In Saline 1 100ml. bag @ 100 mls/hr IVPB ONCE ONE Rx#:[id number] Magnesium Sulfate-D5w Pmx 200 1 gm In Dextrose/Water 1 100ml.bag @ 100 mls/hr IVPB Q1H [facility] Rx#: [id number] ceFAZolin 1,000 mg In 50 Sodium Chloride 0.9% 50 ml @ 100 mls/hr IVPB ONCE [facility] Rx#:[id number] Blood Product 310 Rc As-1 Unit 310 [id number] Hemodialysis 450 Output: Drainage 730 50 CHEST TUBE RIGHT SIDE 730 50 Urine 0 300 0 Hemodialysis 1268 Other: Voiding Method Bedpan Bedpan - Exam Right-sided tunneled catheter with oozing around the tunnel site. No signs of infection. No hematoma. Chest tube site is clean, dry and intact. Chest tube is on waterseal. No leak noted with cough. - Labs CBC & Chem 7: 08/24/23 04:32 08/24/23 04:32 Labs: Abnormal Lab Results - Last 24 Hours (Table) 08/23/23 08/23/23 08/23/23 Range/Units 11:40 14:00 14:00 RBC (3.80-5.40) m/uL Hgb (11.4-16.0) gm/dL Hct (34.0-46.0) % Plt Count (150-450) k/uL Lymphocytes # (1.0-4.8) k/uL Sodium (137-145) mmol/L Chloride 109 H (98-107) mmol/L Carbon Dioxide 19 L (22-30) mmol/L BUN 66 H (7-17) mg/dL Creatinine 10.64 H* (0.52-1.04) mg/dL Glucose 108 H (74-99) mg/dL POC Glucose (mg/dL) 131 H (70-110) mg/dL Calcium 5.3 L* (8.4-10.2) mg/dL Phosphorus 5.8 H (2.5-4.5) mg/dL Magnesium 1.1 L (1.6-2.3) mg/dL Hep Bs Antibody A (Negative) Crossmatch 08/23/23 08/23/23 08/23/23 Range/Units 16:54 18:18 19:10 RBC 2.05 L (3.80-5.40) m/uL Hgb 6.0 L* D (11.4-16.0) gm/dL Hct 18.4 L* (34.0-46.0) % Plt Count 142 L (150-450) k/uL Lymphocytes # 0.7 L (1.0-4.8) k/uL Sodium 136 L (137-145) mmol/L Chloride 109 H (98-107) mmol/L Carbon Dioxide 16 L (22-30) mmol/L BUN 57 H (7-17) mg/dL Creatinine 9.14 H* (0.52-1.04) mg/dL Glucose 112 H (74-99) mg/dL POC Glucose (mg/dL) (70-110) mg/dL Calcium 6.8 L (8.4-10.2) mg/dL Phosphorus (2.5-4.5) mg/dL Magnesium (1.6-2.3) mg/dL Hep Bs Antibody (Negative) Crossmatch See Detail 08/24/23 08/24/23 08/24/23 Range/Units 00:42 04:32 04:32 RBC 2.28 L 2.17 L (3.80-5.40) m/uL Hgb 7.1 L 6.6 L* (11.4-16.0) gm/dL Hct 20.9 L 20.1 L (34.0-46.0) % Plt Count 120 L 120 L (150-450) k/uL Lymphocytes # (1.0-4.8) k/uL Sodium 135 L (137-145) mmol/L Chloride (98-107) mmol/L Carbon Dioxide 18 L (22-30) mmol/L BUN 59 H (7-17) mg/dL Creatinine 9.45 H* (0.52-1.04) mg/dL Glucose 101 H (74-99) mg/dL POC Glucose (mg/dL) (70-110) mg/dL Calcium 6.5 L (8.4-10.2) mg/dL Phosphorus (2.5-4.5) mg/dL Magnesium (1.6-2.3) mg/dL Hep Bs Antibody (Negative) Crossmatch Assessment and Plan Assessment: Iatrogenic right-sided hemothorax following right internal jugular permacath placement Severe metabolic acidosis secondary to noncompliance with peritoneal dialysis. ESRD on peritoneal dialysis, now requiring hemodialysis History of polycystic kidney disease Morbid obesity, BMI 32.4 Plan: U-stitch placed at the tunnel site for hemostasis in a sterile fashion. Good hemostasis noted after suture was placed. Agree with cath flow overnight and patient to get hemodialysis later today. If unable to continue dialysis through the catheter the catheter may need replacement which will be done tomorrow. CVT for continued chest tube management.
[2023-08-24] MEDS: DESMOPRESSIN ACETATE 16 MCG in SODIUM CHLORIDE 0.9% 50 ML IVPB ONE (09:44)
--- NOTE | 2023-08-24 10:50 | P.PN ---
Subjective Patient is seen in follow-up for end-stage renal disease. Patient was maintained on peritoneal dialysis but was not doing her treatments outpatient. Permacath was placed August 23, 2023. Tolerated hemodialysis well yesterday. Output from the chest tube being decreased. Scheduled to receive another unit of blood today. Bleeding from the catheter site stopped. Vital signs are stable. General: No acute distress. HEENT: Head exam is unremarkable. LUNGS: Chest tube noted. HEART: Rate and Rhythm are regular. ABDOMEN: PD catheter noted. EXTREMITITES: 1+ edema. Objective - Vital Signs Vital signs: Vital Signs Temp 98.7 F 08/24/23 08:00 Pulse 95 08/24/23 10:00 Resp 16 08/24/23 10:00 BP 122/74 08/24/23 10:00 Pulse Ox 98 08/24/23 10:00 FiO2 Intake & Output 08/23/23 08/24/23 08/24/23 18:59 06:59 18:59 Intake Total 1300 310 110 Output Total 1997 350 0 Balance -698 -40 110 Weight 75 kg Intake: IV 500 110 Desmopressin Acetate 16 50 mcg In Sodium Chloride 0. 9% 50 ml @ 200 mls/hr IVPB ONCE ONE Rx#: [id number] Sodium Chloride 0.9% 1, 60 000 ml @ 20 mls/hr IV . Q24H [facility] Rx#:[id number] Intake, IV Titration 350 Amount Calcium Gluconate in NaCl 100 2 gm In Saline 1 100ml. bag @ 100 mls/hr IVPB ONCE ONE Rx#:[id number] Magnesium Sulfate-D5w Pmx 200 1 gm In Dextrose/Water 1 100ml.bag @ 100 mls/hr IVPB Q1H [facility] Rx#: [id number] ceFAZolin 1,000 mg In 50 Sodium Chloride 0.9% 50 ml @ 100 mls/hr IVPB ONCE [facility] Rx#:[id number] Blood Product 310 0 Rc As-1 Unit 0 [id number] Rc As-1 Unit 310 [id number] Hemodialysis 450 Output: Drainage 730 50 CHEST TUBE RIGHT SIDE 730 50 Urine 0 300 0 Hemodialysis 1268 Other: Voiding Method Bedpan Bedpan - Labs CBC & Chem 7: 08/24/23 04:32 08/24/23 04:32 Labs: Abnormal Lab Results - Last 24 Hours (Table) 08/23/23 08/23/23 08/23/23 Range/Units 11:40 14:00 14:00 RBC (3.80-5.40) m/uL Hgb (11.4-16.0) gm/dL Hct (34.0-46.0) % Plt Count (150-450) k/uL Lymphocytes # (1.0-4.8) k/uL Sodium (137-145) mmol/L Chloride 109 H (98-107) mmol/L Carbon Dioxide 19 L (22-30) mmol/L BUN 66 H (7-17) mg/dL Creatinine 10.64 H* (0.52-1.04) mg/dL Glucose 108 H (74-99) mg/dL POC Glucose (mg/dL) 131 H (70-110) mg/dL Calcium 5.3 L* (8.4-10.2) mg/dL Phosphorus 5.8 H (2.5-4.5) mg/dL Magnesium 1.1 L (1.6-2.3) mg/dL Hep Bs Antibody A (Negative) Crossmatch 08/23/23 08/23/23 08/23/23 Range/Units 16:54 18:18 19:10 RBC 2.05 L (3.80-5.40) m/uL Hgb 6.0 L* D (11.4-16.0) gm/dL Hct 18.4 L* (34.0-46.0) % Plt Count 142 L (150-450) k/uL Lymphocytes # 0.7 L (1.0-4.8) k/uL Sodium 136 L (137-145) mmol/L Chloride 109 H (98-107) mmol/L Carbon Dioxide 16 L (22-30) mmol/L BUN 57 H (7-17) mg/dL Creatinine 9.14 H* (0.52-1.04) mg/dL Glucose 112 H (74-99) mg/dL POC Glucose (mg/dL) (70-110) mg/dL Calcium 6.8 L (8.4-10.2) mg/dL Phosphorus (2.5-4.5) mg/dL Magnesium (1.6-2.3) mg/dL Hep Bs Antibody (Negative) Crossmatch See Detail 08/24/23 08/24/23 08/24/23 Range/Units 00:42 04:32 04:32 RBC 2.28 L 2.17 L (3.80-5.40) m/uL Hgb 7.1 L 6.6 L* (11.4-16.0) gm/dL Hct 20.9 L 20.1 L (34.0-46.0) % Plt Count 120 L 120 L (150-450) k/uL Lymphocytes # (1.0-4.8) k/uL Sodium 135 L (137-145) mmol/L Chloride (98-107) mmol/L Carbon Dioxide 18 L (22-30) mmol/L BUN 59 H (7-17) mg/dL Creatinine 9.45 H* (0.52-1.04) mg/dL Glucose 101 H (74-99) mg/dL POC Glucose (mg/dL) (70-110) mg/dL Calcium 6.5 L (8.4-10.2) mg/dL Phosphorus (2.5-4.5) mg/dL Magnesium (1.6-2.3) mg/dL Hep Bs Antibody (Negative) Crossmatch Assessment and Plan Plan: Assessment: 1. End-stage renal disease maintained on peritoneal dialysis now transitioned to hemodialysis due to noncompliance. 2. Status post permacath placement this morning with subsequent right-sided hemothorax. Has chest tube. 3. Alport syndrome. 4. Metabolic acidosis secondary to chronic kidney disease and noncompliance with dialysis treatments. 5. Chronic kidney disease mineral bone disease. On PhosLo. Phosphorus 5.8 da steve August 23, 2023. Calcium level also improving. 6. Anemia of chronic kidney disease. Also component of acute blood loss. Status post blood transfusion. Received DDAVP as well. 7. Hypertension with chronic kidney disease. Controlled. Plan: Hemodialysis tomorrow. Maintain bicarb for now. Maintain torsemide. Again stressed compliance with medications and dialysis treatments outpatient. Life-threatening complications, including , have been discussed with the patient multiple times. PD catheter to be removed prior to discharge. Surgery consulted. IV DDAVP x 1 dose today. Also scheduled to receive a unit of blood. Stitch placed by vascular surgery. Bleeding from the catheter site seems to have resolved. Add Aranesp. 1 g IV calcium gluconate today. Check PTH.
[2023-08-24] MEDS: CALCIUM GLUCONATE IN NACL 1 GM in SALINE 1 100ML.BAG IVPB ONE (11:12)
--- NOTE | 2023-08-24 11:23 | P.PN ---
Subjective Progress Note Date: 08/24/23 Principal diagnosis: Iatrogenic hemopneumothorax This is a 22-year-old female patient with a history of hypertension, chronic kidney disease, stage V, and had been on peritoneal dialysis however was quite noncompliant and had worsening lab values. She was initially at [facility] and was to have a permacath placed and to be initiated on hemodialysis however vascular surgery was not available. She was transferred here for the same. Earlier today a tunneled hemodialysis catheter was placed via the right internal jugular vein. Following the procedure she developed a hemothorax and a right-sided chest tube was placed. She was transferred to the intensive care unit for closer monitoring. Currently she is resting in bed. Awake and alert in no acute distress. There is approximately 500 mL of bloody return from her chest tube thus far. Patient is up to 100% on 2 L nasal cannula. She has been afebrile. Hemodynamically stable. Globin 8.7. Platelet s 139. Sodium 142. Potassium 4.6. Bicarb 12. BUN 82. Creatinine 11.7. Glucose 131. hCG was negative. Her peritoneal dialysis will be completed and the plan is for 2 hours hemodialysis today. She was evaluated today on 08/24/2023, remains in the ICU, hemodynamically stable however the patient required 2 units of packed RBCs in the last 24 hours for drop in her hemoglobin. Patient had no more than 90 cc of blood into the Pleur- evac last night, and she had 450 initially after the chest tube was placed. In addition to the blood loss from the chest area, patient is also oozing around th e hemodialysis catheter, and this was addressed by vascular surgery today, and a U-stitch was placed. Patient did receive dialysis yesterday, she is doing well at present, presently on room air, IV fluids at KVO. Hemoglobin today is 6.6, she is to receive her second unit of packed RBCs today. Hemodialysis yesterday done and the patient had 800 cc of fluid removed. Catheter was apparently nonfu nctional but that was already addressed by vascular surgery. There is no air leak noted in the chest tube today, hence the chest tube was placed on waterseal by thoracic surgery on the case. Patient has some pain over at the site of the chest tube placement, otherwise she is asymptomatic. Objective - Vital Signs Vital signs: Vital Signs Temp 98.8 F 08/24/23 10:10 Pulse 101 H 08/24/23 10:10 Resp 21 08/24/23 10:10 BP 114/86 08/24/23 10:10 Pulse Ox 97 08/24/23 10:10 FiO2 Intake & Output 08/23/23 08/24/23 08/24/23 18:59 06:59 18:59 Intake Total 1300 310 110 Output Total 1998 350 0 Balance -698 -40 110 Weight 75 kg Intake: IV 500 110 Desmopressin Acetate 16 50 mcg In Sodium Chloride 0. 9% 50 ml @ 200 mls/hr IVPB ONCE ONE Rx#: [id number] Sodium Chloride 0.9% 1, 60 000 ml @ 20 mls/hr IV . Q24H [facility] Rx#:[id number] Intake, IV Titration 350 Amount Calcium Gluconate in NaCl 100 2 gm In Saline 1 100ml. bag @ 100 mls/hr IVPB ONCE ONE Rx#:[id number] Magnesium Sulfate-D5w Pmx 200 1 gm In Dextrose/Water 1 100ml.bag @ 100 mls/hr IVPB Q1H [facility] Rx#: [id number] ceFAZolin 1,000 mg In 50 Sodium Chloride 0.9% 50 ml @ 100 mls/hr IVPB ONCE [facility] Rx#:[id number] Blood Product 310 0 Rc As-1 Unit 0 [id number] Rc As-1 Unit 310 [id number] Hemodialysis 450 Output: Drainage 730 50 CHEST TUBE RIGHT SIDE 730 50 Urine 0 300 0 Hemodialysis 1268 Other: Voiding Method Bedpan Bedpan Bedpan - Exam GENERAL EXAM: Alert, 22-year-old female, on 2 L nasal cannula, fairly comfortable in no apparent distress. O2 saturation is 97% HEAD: Normocephalic. EYES: Normal reaction of pupils, equal size. NOSE: Clear with pink turbinates. THROAT: No erythema or exudates. NECK: No masses, no JVD. Right IJ permacath in place. Bleeding noted at the catheter site insertion, dressing is saturated with blood. CHEST: No chest wall deformity. Right-sided chest tube remains in place to Pleur-evac on waterseal, no air leak noted LUNGS: Equal air entry with scattered rhonchi over the right lung. CVS: S1 and S2 normal with no audible murmur, regular rhythm. ABDOMEN: No hepatosplenomegaly, normal bowel sounds, no guarding or rigidity. SKIN: No rashes CENTRAL NERVOUS SYSTEM: No focal deficits, tone is normal in all 4 extremities. EXTREMITIES: There is no peripheral edema. No clubbing, no cyanosis. Perip heral pulses are intact. - Labs CBC & Chem 7: 08/24/23 04:32 08/24/23 04:32 Labs: Abnormal Lab Results - Last 24 Hours (Table) 08/23/23 08/23/23 08/23/23 Range/Units 11:40 14:00 14:00 RBC (3.80-5.40) m/uL Hgb (11.4-16.0) gm/dL Hct (34.0-46.0) % Plt Count (150-450) k/uL Lymphocytes # (1.0-4.8) k/uL Sodium (137-145) mmol/L Chloride 109 H (98-107) mmol/L Carbon Dioxide 19 L (22-30) mmol/L BUN 66 H (7-17) mg/dL Creatinine 10.64 H* (0.52-1.04) mg/dL Glucose 108 H (74-99) mg/dL POC Glucose (mg/dL) 131 H (70-110) mg/dL Calcium 5.3 L* (8.4-10.2) mg/dL Phosphorus 5.8 H (2.5-4.5) mg/dL Magnesium 1.1 L (1.6-2.3) mg/dL Hep Bs Antibody A (Negative) Crossmatch 08/23/23 08/23/23 08/23/23 Range/Units 16:54 18:18 19:10 RBC 2.05 L (3.80-5.40) m/uL Hgb 6.0 L* D (11.4-16.0) gm/dL Hct 18.4 L* (34.0-46.0) % Plt Count 142 L (150-450) k/uL Lymphocytes # 0.7 L (1.0-4.8) k/uL Sodium 136 L (137-145) mmol/L Chloride 109 H (98-107) mmol/L Carbon Dioxide 16 L (22-30) mmol/L BUN 57 H (7-17) mg/dL Creatinine 9.14 H* (0.52-1.04) mg/dL Glucose 112 H (74-99) mg/dL POC Glucose (mg/dL) (70-110) mg/dL Calcium 6.8 L (8.4-10.2) mg/dL Phosphorus (2.5-4.5) mg/dL Magnesium (1.6-2.3) mg/dL Hep Bs Antibody (Negative) Crossmatch See Detail 08/24/23 08/24/23 08/24/23 Range/Units 00:42 04:32 04:32 RBC 2.28 L 2.17 L (3.80-5.40) m/uL Hgb 7.1 L 6.6 L* (11.4-16.0) gm/dL Hct 20.9 L 20.1 L (34.0-46.0) % Plt Count 120 L 120 L (150-450) k/uL Lymphocytes # (1.0-4.8) k/uL Sodium 135 L (137-145) mmol/L Chloride (98-107) mmol/L Carbon Dioxide 18 L (22-30) mmol/L BUN 59 H (7-17) mg/dL Creatinine 9.45 H* (0.52-1.04) mg/dL Glucose 101 H (74-99) mg/dL POC Glucose (mg/dL) (70-110) mg/dL Calcium 6.5 L (8.4-10.2) mg/dL Phosphorus (2.5-4.5) mg/dL Magnesium (1.6-2.3) mg/dL Hep Bs Antibody (Negative) Crossmatch Assessment and Plan Assessment: Impression: Iatrogenic right-sided hemopneumothorax requiring chest tube placement this was a complication from placement of the permacath dialysis catheter Acute on chronic kidney disease, stage V, noncompliant with peritoneal dialysis requiring conversion to hemodialysis Severe metabolic acidosis secondary to noncompliance with peritoneal dialysis. 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 Hypertension Recommendation: Continue to monitor in the ICU for now, for the next 24 hours. Continue hemodialysis as felt necessary by nephrology on the case Vascular surgery is addressing the blood loss at the site of catheter insertion and a U-stitch was placed Continue to keep chest tube in place for the next 24 hours on waterseal Transfused a second unit of blood for hemoglobin of 6.6 Will continue to follow and possibly discontinue chest tube in the next 24 hours. Time with Patient: Less than 30
--- NOTE | 2023-08-24 11:43 | P.PN ---
Subjective Progress Note Date: 08/24/23 Principal diagnosis: Right hemothorax/pneumothorax. Past medical history significant for chronic kidney disease with end-stage renal disease requiring hemodialysis, history of noncompliance with peritoneal dialysis regimen, Alport Syndrome, hypertension and is a lifetime non-smoker. POD #1 status post right pleural chest tube placement by Dr. Johnson for a hemothorax/pneumothorax The patient was seen and examined in follow-up today August 24, 2023 at her bedside in the intensive care unit. She is currently laying in bed, is awake, alert, oriented x 3 and is in no acute apparent distress. Denies any complaints of shortness of breath at this time, but is complaining of right chest pain to her chest tube insertion site with taking a deep breath. Currently rating her pain 5-6 out of 10 on the pain scale. Oxygen saturations are 98% on 2 L nasal cannula. Right pleural chest tube remains in place to low continuous wall suction -20 cm H2O. No air leak is present. Draining thin serosanguineous drainage with a total of 850 mL of drainage in the last 24 hours. Bedside telemetry showing normal sinus rhythm heart rate 90 bpm. Right chest hemodialysis catheter remains in place, her bedside nurse reports that it had some oozing throughout the night. She underwent hemodialysis yesterday with 1268 mL ultrafiltration completed. Urine output is 300 mL in the last 8 hours. The patient underwent a CT chest without contrast yesterday which showed a right-sided pneumothorax less than 10%, and a moderate to large right-sided hemothorax. Chest x-ray this morning results reviewed. Objective - Vital Signs Vital signs: Vital Signs Temp 98.8 F 08/24/23 10:10 Pulse 101 H 08/24/23 10:10 Resp 21 08/24/23 10:10 BP 114/86 08/24/23 10:10 Pulse Ox 97 08/24/23 10:10 FiO2 Intake & Output 08/23/23 08/24/23 08/24/23 18:59 06:59 18:59 Intake Total 1300 310 110 Output Total 1997 350 0 Balance -698 -40 110 Weight 75 kg Intake: IV 500 110 Desmopressin Acetate 16 50 mcg In Sodium Chloride 0. 9% 50 ml @ 200 mls/hr IVPB ONCE ONE Rx#: [id number] Sodium Chloride 0.9% 1, 60 000 ml @ 20 mls/hr IV . Q24H [facility] Rx#:[id number] Intake, IV Titration 350 Amount Calcium Gluconate in NaCl 100 2 gm In Saline 1 100ml. bag @ 100 mls/hr IVPB ONCE ONE Rx#:[id number] Magnesium Sulfate-D5w Pmx 200 1 gm In Dextrose/Water 1 100ml.bag @ 100 mls/hr IVPB Q1H [facility] Rx#: [id number] ceFAZolin 1,000 mg In 50 Sodium Chloride 0.9% 50 ml @ 100 mls/hr IVPB ONCE [facility] Rx#:[id number] Blood Product 310 0 Rc As-1 Unit 0 [id number] Rc As-1 Unit 310 [id number] Hemodialysis 450 Output: Drainage 730 50 CHEST TUBE RIGHT SIDE 730 50 Urine 0 300 0 Hemodialysis 1268 Other: Voiding Method Bedpan Bedpan Bedpan - Exam CONSTITUTIONAL: appears comfortable, cooperative, no apparent acute distress. HEENT: Neck is supple, no JVD, no lymphadenopathy. RESPIRATORY: Lungs sounds essentially clear throughout, diminished to his bilateral bases right greater than left. Respirations are symmetrical and nonlabored. Currently on 2 L nasal cannula with oxygen saturations 98%. Strong cough. CARDIOVASCULAR: Regular rhythm and rate. S1 and S2 present, negative for S3, gallop or murmur. GASTROINTESTINAL: Abdomen soft, nontender, nondistended. Active bowel sounds present 4 quadrants. No guarding or rigidity. GENITOURINARY: Real present draining clear, yellow urine. Output mL in the last 8 hours INTEGUMENTARY: Skin is warm and dry with no evidence of clubbing or cyanosis. NEUROLOGIC: Cranial nerves II through XII intact. No focal deficits. MUSKULOSKELETAL: Able to move all extremities, strength equal bilaterally. PSYCHIATRIC: Alert and oriented to person place and time, appropriate affect, intact judgment and insight. INVASIVE LINES AND TUBES: Right pleural chest tubes present and connected to low continuous wall suction, no air leaks present. Right pleural chest tube 850 mL of thin serosanguineous drainage in the last 24 hours. - Allied health notes Allied health notes reviewed: nursing - Labs CBC & Chem 7: 08/24/23 04:32 08/24/23 04:32 Labs: Abnormal Lab Results - Last 24 Hours (Table) 08/23/23 08/23/23 08/23/23 Range/Units 11:40 14:00 14:00 RBC (3.80-5.40) m/uL Hgb (11.4-16.0) gm/dL Hct (34.0-46.0) % Plt Count (150-450) k/uL Lymphocytes # (1.0-4.8) k/uL Sodium (137-145) mmol/L Chloride 109 H (98-107) mmol/L Carbon Dioxide 19 L (22-30) mmol/L BUN 66 H (7-17) mg/dL Creatinine 10.64 H* (0.52-1.04) mg/dL Glucose 108 H (74-99) mg/dL POC Glucose (mg/dL) 131 H (70-110) mg/dL Calcium 5.3 L* (8.4-10.2) mg/dL Phosphorus 5.8 H (2.5-4.5) mg/dL Magnesium 1.1 L (1.6-2.3) mg/dL Hep Bs Antibody A (Negative) Crossmatch 08/23/23 08/23/23 08/23/23 Range/Units 16:54 18:18 19:10 RBC 2.05 L (3.80-5.40) m/uL Hgb 6.0 L* D (11.4-16.0) gm/dL Hct 18.4 L* (34.0-46.0) % Plt Count 142 L (150-450) k/uL Lymphocytes # 0.7 L (1.0-4.8) k/uL Sodium 136 L (137-145) mmol/L Chloride 109 H (98-107) mmol/L Carbon Dioxide 16 L (22-30) mmol/L BUN 57 H (7-17) mg/dL Creatinine 9.14 H* (0.52-1.04) mg/dL Glucose 112 H (74-99) mg/dL POC Glucose (mg/dL) (70-110) mg/dL Calcium 6.8 L (8.4-10.2) mg/dL Phosphorus (2.5-4.5) mg/dL Magnesium (1.6-2.3) mg/dL Hep Bs Antibody (Negative) Crossmatch See Detail 08/24/23 08/24/23 08/24/23 Range/Units 00:42 04:32 04:32 RBC 2.28 L 2.17 L (3.80-5.40) m/uL Hgb 7.1 L 6.6 L* (11.4-16.0) gm/dL Hct 20.9 L 20.1 L (34.0-46.0) % Plt Count 120 L 120 L (150-450) k/uL Lymphocytes # (1.0-4.8) k/uL Sodium 135 L (137-145) mmol/L Chloride (98-107) mmol/L Carbon Dioxide 18 L (22-30) mmol/L BUN 59 H (7-17) mg/dL Creatinine 9.45 H* (0.52-1.04) mg/dL Glucose 101 H (74-99) mg/dL POC Glucose (mg/dL) (70-110) mg/dL Calcium 6.5 L (8.4-10.2) mg/dL Phosphorus (2.5-4.5) mg/dL Magnesium (1.6-2.3) mg/dL Hep Bs Antibody (Negative) Crossmatch - Imaging and Cardiology Chest x-ray: report reviewed, image reviewed CT scan - chest: report reviewed, image reviewed Assessment and Plan Assessment: Right hemo-/pneumothorax, status post chest tube placement by Dr. Johnson Alport syndrome, end-stage renal disease on peritoneal dialysis with significant noncompliance as outpatient status post hemodialysis catheter placement by Dr. Johnson Hypertension Morbid obesity with BMI of 32.4 kg/m Plan: Results of the CT scan were reviewed with the patient, treatment options discussed including a right video-assisted thoracoscopic surgery with washout. We will repeat a chest x-ray in the morning, if it is still demonstrating a hemothorax the patient will be scheduled for the right video-assisted thoracoscopic surgery with washout. Risks and benefits discussed with the patient, and knowing and understanding risks the patient wishes to proceed with the surgical option. She will be made n.p.o. after midnight. Place right pleural chest tube to waterseal. Continue to monitor daily chest x-rays. Pain management per current as needed orders. Encourage use of incentive spirometry 10 times every hour while awake. Type and screen. More recommendations to follow based on patient's clinical course. Time with Patient: Greater than 30
--- NOTE | 2023-08-24 12:05 | P.PN ---
Subjective Progress Note Date: 08/24/23 Principal diagnosis: Renal failure 22-year-old female known to our service. Underwent dialysis catheter insertion by myself last November. Unfortunate was not using her peritoneal dialysis catheter appropriately and has decided to switch over to hemodialysis. Events of this hospitalization noted. Objective - Vital Signs Vital signs: Vital Signs Temp 98.8 F 08/24/23 10:10 Pulse 101 H 08/24/23 10:10 Resp 21 08/24/23 10:10 BP 114/86 08/24/23 10:10 Pulse Ox 97 08/24/23 10:10 FiO2 Intake & Output 08/23/23 08/24/23 08/24/23 18:59 06:59 18:59 Intake Total 1300 310 110 Output Total 1998 350 0 Balance -698 -40 110 Weight 75 kg Intake: IV 500 110 Desmopressin Acetate 16 50 mcg In Sodium Chloride 0. 9% 50 ml @ 200 mls/hr IVPB ONCE ONE Rx#: [id number] Sodium Chloride 0.9% 1, 60 000 ml @ 20 mls/hr IV . Q24H [facility] Rx#:[id number] Intake, IV Titration 350 Amount Calcium Gluconate in NaCl 100 2 gm In Saline 1 100ml. bag @ 100 mls/hr IVPB ONCE ONE Rx#:[id number] Magnesium Sulfate-D5w Pmx 200 1 gm In Dextrose/Water 1 100ml.bag @ 100 mls/hr IVPB Q1H [facility] Rx#: [id number] ceFAZolin 1,000 mg In 50 Sodium Chloride 0.9% 50 ml @ 100 mls/hr IVPB ONCE [facility] Rx#:[id number] Blood Product 310 0 Rc As-1 Unit 0 [id number] Rc As-1 Unit 310 [id number] Hemodialysis 450 Output: Drainage 730 50 CHEST TUBE RIGHT SIDE 730 50 Urine 0 300 0 Hemodialysis 1268 Other: Voiding Method Bedpan Bedpan Bedpan - Exam Abdomen: Soft, nontender, nondistended, PD cath in place - Labs CBC & Chem 7: 08/24/23 04:32 08/24/23 04:32 Labs: Abnormal Lab Results - Last 24 Hours (Table) 08/23/23 08/23/23 08/23/23 Range/Units 14:00 14:00 16:54 RBC 2.05 L (3.80-5.40) m/uL Hgb 6.0 L* D (11.4-16.0) gm/dL Hct 18.4 L* (34.0-46.0) % Plt Count 142 L (150-450) k/uL Lymphocytes # 0.7 L (1.0-4.8) k/uL Sodium (137-145) mmol/L Chloride 109 H (98-107) mmol/L Carbon Dioxide 19 L (22-30) mmol/L BUN 66 H (7-17) mg/dL Creatinine 10.64 H* (0.52-1.04) mg/dL Glucose 108 H (74-99) mg/dL Calcium 5.3 L* (8.4-10.2) mg/dL Phosphorus 5.8 H (2.5-4.5) mg/dL Magnesium 1.1 L (1.6-2.3) mg/dL Hep Bs Antibody A (Negative) Crossmatch 08/23/23 08/23/23 08/24/23 Range/Units 18:18 19:10 00:42 RBC 2.28 L (3.80-5.40) m/uL Hgb 7.1 L (11.4-16.0) gm/dL Hct 20.9 L (34.0-46.0) % Plt Count 120 L (150-450) k/uL Lymphocytes # (1.0-4.8) k/uL Sodium 136 L (137-145) mmol/L Chloride 109 H (98-107) mmol/L Carbon Dioxide 16 L (22-30) mmol/L BUN 57 H (7-17) mg/dL Creatinine 9.14 H* (0.52-1.04) mg/dL Glucose 112 H (74-99) mg/dL Calcium 6.8 L (8.4-10.2) mg/dL Phosphorus (2.5-4.5) mg/dL Magnesium (1.6-2.3) mg/dL Hep Bs Antibody (Negative) Crossmatch See Detail 08/24/23 08/24/23 Range/Units 04:32 04:32 RBC 2.17 L (3.80-5.40) m/uL Hgb 6.6 L* (11.4-16.0) gm/dL Hct 20.1 L (34.0-46.0) % Plt Count 120 L (150-450) k/uL Lymphocytes # (1.0-4.8) k/uL Sodium 135 L (137-145) mmol/L Chloride (98-107) mmol/L Carbon Dioxide 18 L (22-30) mmol/L BUN 59 H (7-17) mg/dL Creatinine 9.45 H* (0.52-1.04) mg/dL Glucose 101 H (74-99) mg/dL Calcium 6.5 L (8.4-10.2) mg/dL Phosphorus (2.5-4.5) mg/dL Magnesium (1.6-2.3) mg/dL Hep Bs Antibody (Negative) Crossmatch Assessment and Plan (1) Renal failure Narrative/Plan: 22-year-old female with renal failure. Patient not utilizing peritoneal dialysis catheter appropriately. Will plan on removing dialysis catheter prior to discharge. Possibly tomorrow. Await plans by thoracic surgery. Current Visit: Yes Status: Acute Code(s): N19 - UNSPECIFIED KIDNEY FAILURE SNOMED Code(s): 41136741
[2023-08-24] MEDS: METOCLOPRAMIDE 5 MG/ML 2 ML VIAL IVP PRN (12:27)
--- NOTE | 2023-08-24 12:40 | P.PN ---
Subjective Progress Note Date: 08/24/23 This is a pleasant 22-year-old female with past medical history significant for polycystic kidney disease, requiring dialysis a couple years ago. Reports prior hemodialysis via tunneled catheters with last one removed in early July 2023. Patient was initially admitted to [facility], for tunneled catheter placement secondary to worsening renal function. Vascular surgery services were not available at that site and patient was transferred over to [facility]. Reports last peritoneal dialysis was completed yesterday evening. Nephrology and vascular surgery consults in place. Denies chest pain, palpitations or shortness of breath. Denies lightheadedness, dizziness or focal deficits. Denies headache. Denies nausea vomiting. Patient has no complaints. Vital signs stable, maintaining O2 sats of 100% on room air. 08/22. Patient seen and examined. Patient had right-sided tunneled IJ catheter placed following that patient developed hemothorax and the chest tube was placed. Patient will be transferred to ICU. Currently patient is complaining of pain. Denies any shortness of breath. Denies any cough 08/23. Patient seen and examined. Blood work this morning showed WBC count 7, hemoglobin 6.6, platelet count 120, sodium 135, potassium 4.1. Patient getting her second unit of blood today. REVIEW OF SYSTEMS: CONSTITUTIONAL: No fever, no malaise,. CARDIOVASCULAR: no palpitations, no syncope. PULMONARY: As mentioned above GASTROINTESTINAL: No diarrhea, no nausea, no vomiting, no abdominal pain. NEUROLOGICAL: No headaches, no weakness, PHYSICAL EXAMINATION: GENERAL: The patient is alert and oriented x3, not in any acute distress. Well developed, well nourished. HEENT: Pupils are round and equally reacting to light. EOMI. No scleral icterus. No conjunctival pallor. Normocephalic, atraumatic. No pharyngeal erythema. No thyromegaly. CARDIOVASCULAR: S1 and S2 present. No murmurs, rubs, or gallops. PULMONARY: Chest is clear to auscultation, no wheezing or crackles. Right-sided chest tube seen ABDOMEN: Soft, nontender, nondistended, normoactive bowel sounds. No palpable organomegaly. PD catheter seen MUSCULOSKELETAL: No joint swelling or deformity. EXTREMITIES: No cyanosis, clubbing, or pedal edema. NEUROLOGICAL: Gross neurological examination did not reveal any focal deficits. SKIN: No rashes. Assessment and plan Iatrogenic right-sided hemothorax following right internal jugular permacath placement Severe metabolic acidosis secondary to noncompliance with peritoneal dialysis. ESRD on peritoneal dialysis, now requiring hemodialysis History of polycystic kidney disease Morbid obesity, BMI 32.4 Monitor vital signs Monitor CBC Monitor CMP Continue chest tube management per pulmonology Continue dialysis per nephrology CT surgery following vascular surgery following, Nephrology following, continue dialysis per nephrology vascular surgery following,U-stitch placed at the tunnel site for hemostasis General surgery planning to remove peritoneal dialysis catheter prior to discharge Labs and medication were reviewed.. Continue same treatment. Continue with symptomatic treatment. Resume home medication. Monitor labs and vitals. DVT and GI prophylaxis. Further recommendations as per clinical course of the patient Dictation was produced using [employer] dictation software. please excuse any grammatical, word or spelling errors. Objective - Vital Signs Vital signs: Vital Signs Temp 98.8 F 08/24/23 10:10 Pulse 101 H 08/24/23 10:10 Resp 21 08/24/23 10:10 BP 114/86 08/24/23 10:10 Pulse Ox 97 08/24/23 10:10 FiO2 Intake & Output 08/23/23 08/24/23 08/24/23 18:59 06:59 18:59 Intake Total 1300 310 110 Output Total 1997 350 0 Balance -698 -40 110 Weight 75 kg Intake: IV 500 110 Desmopressin Acetate 16 50 mcg In Sodium Chloride 0. 9% 50 ml @ 200 mls/hr IVPB ONCE ONE Rx#: [id number] Sodium Chloride 0.9% 1, 60 000 ml @ 20 mls/hr IV . Q24H [facility] Rx#:[id number] Intake, IV Titration 350 Amount Calcium Gluconate in NaCl 100 2 gm In Saline 1 100ml. bag @ 100 mls/hr IVPB ONCE ONE Rx#:[id number] Magnesium Sulfate-D5w Pmx 200 1 gm In Dextrose/Water 1 100ml.bag @ 100 mls/hr IVPB Q1H [facility] Rx#: [id number] ceFAZolin 1,000 mg In 50 Sodium Chloride 0.9% 50 ml @ 100 mls/hr IVPB ONCE [facility] Rx#:[id number] Blood Product 310 0 Rc As-1 Unit 0 [id number] Rc As-1 Unit 310 [id number] Hemodialysis 450 Output: Drainage 730 50 CHEST TUBE RIGHT SIDE 730 50 Urine 0 300 0 Hemodialysis 1268 Other: Voiding Method Bedpan Bedpan Bedpan - Labs CBC & Chem 7: 08/24/23 04:32 08/24/23 04:32 Labs: Abnormal Lab Results - Last 24 Hours (Table) 08/23/23 08/23/23 08/23/23 Range/Units 14:00 14:00 16:54 RBC 2.05 L (3.80-5.40) m/uL Hgb 6.0 L* D (11.4-16.0) gm/dL Hct 18.4 L* (34.0-46.0) % Plt Count 142 L (150-450) k/uL Lymphocytes # 0.7 L (1.0-4.8) k/uL Sodium (137-145) mmol/L Chloride 109 H (98-107) mmol/L Carbon Dioxide 19 L (22-30) mmol/L BUN 66 H (7-17) mg/dL Creatinine 10.64 H* (0.52-1.04) mg/dL Glucose 108 H (74-99) mg/dL Calcium 5.3 L* (8.4-10.2) mg/dL Phosphorus 5.8 H (2.5-4.5) mg/dL Magnesium 1.1 L (1.6-2.3) mg/dL Hep Bs Antibody A (Negative) Crossmatch 08/23/23 08/23/23 08/24/23 Range/Units 18:18 19:10 00:42 RBC 2.28 L (3.80-5.40) m/uL Hgb 7.1 L (11.4-16.0) gm/dL Hct 20.9 L (34.0-46.0) % Plt Count 120 L (150-450) k/uL Lymphocytes # (1.0-4.8) k/uL Sodium 136 L (137-145) mmol/L Chloride 109 H (98-107) mmol/L Carbon Dioxide 16 L (22-30) mmol/L BUN 57 H (7-17) mg/dL Creatinine 9.14 H* (0.52-1.04) mg/dL Glucose 112 H (74-99) mg/dL Calcium 6.8 L (8.4-10.2) mg/dL Phosphorus (2.5-4.5) mg/dL Magnesium (1.6-2.3) mg/dL Hep Bs Antibody (Negative) Crossmatch See Detail 08/24/23 08/24/23 Range/Units 04:32 04:32 RBC 2.17 L (3.80-5.40) m/uL Hgb 6.6 L* (11.4-16.0) gm/dL Hct 20.1 L (34.0-46.0) % Plt Count 120 L (150-450) k/uL Lymphocytes # (1.0-4.8) k/uL Sodium 135 L (137-145) mmol/L Chloride (98-107) mmol/L Carbon Dioxide 18 L (22-30) mmol/L BUN 59 H (7-17) mg/dL Creatinine 9.45 H* (0.52-1.04) mg/dL Glucose 101 H (74-99) mg/dL Calcium 6.5 L (8.4-10.2) mg/dL Phosphorus (2.5-4.5) mg/dL Magnesium (1.6-2.3) mg/dL Hep Bs Antibody (Negative) Crossmatch
[2023-08-24 15:56] LABS: HCT 23.6 % (34.0-46.0); HGB 7.8 gm/dL (11.4-16.0); MCH 30.1 pg (25.0-35.0); MCV 91.1 fL (80.0-100.0); Mean Platelet Volume 8.9; Platelet Count 108 k/uL (150-450); RBC 2.59 m/uL (3.80-5.40); RDW 13.6 % (11.5-15.5); WBC 7.1 k/uL (3.8-10.6)
[2023-08-24] MEDS: ONDANSETRON 4 MG/2 ML VIAL IVP PRN (17:15)
[2023-08-24] MEDS: DARBEPOETIN ALFA 40 MCG/0.4 ML SYRINGE SQ SCH (17:15)
[2023-08-25 06:00] LABS: Basophils % (A) 0 %; Eosinophils # (A) 0.1 k/uL (0-0.7); Eosinophils % (A) 2 %; HCT 21.4 % (34.0-46.0); HGB 7.1 gm/dL (11.4-16.0); Hypochromasia Slight; Lymphocytes # (A) 0.9 k/uL (1.0-4.8); Lymphocytes % (A) 15 %; MCH 30.7 pg (25.0-35.0); MCHC 33.1 g/dL (31.0-37.0); MCV 92.7 fL (80.0-100.0); Mean Platelet Volume 9.1; Monocytes # (A) 0.2 k/uL (0-1.0); Monocytes % (A) 4 %; Neutrophils # (A) 4.6 k/uL (1.3-7.7); Neutrophils % (A) 79 %; Platelet Count 107 k/uL (150-450); RDW 13.7 % (11.5-15.5); WBC 5.9 k/uL (3.8-10.6)
[2023-08-25 06:29] LABS: African American GFR (CKD) 5 (>60 ml/min/1.73 sqM); Anion Gap 13 mmol/L; Blood Urea Nitrogen 62 mg/dL (7-17); Calcium 6.9 mg/dL (8.4-10.2); Carbon Dioxide 18 mmol/L (22-30); Chloride 107 mmol/L (98-107); Glucose 87 mg/dL (74-99); Non-African American GFR(CKD) 5 (>60 ml/min/1.73 sqM); Potassium 4.1 mmol/L (3.5-5.1); Sodium 138 mmol/L (137-145)
--- NOTE | 2023-08-25 08:31 | XR ---
EXAMINATION TYPE: XR chest 1V portable DATE OF EXAM: 08/25/2023 Comparison: 08/24/2023 Clinical History: 84-year-old female post TAVR, Right hemothorax Findings: Heart remains mildly enlarged. Mild diffuse prominence to the pulmonary vasculature is similar. Small bilateral pleural effusions with some patchy bibasilar opacities similar to slightly improved. No ap preciable pneumothorax. Endovascular aortic valve replacement noted. Impression: Residual mild pulmonary vascular congestion. Small bilateral pleural effusions with adjacent atelecta sis and/or consolidation similar to slightly improved. No appreciable pneumothorax.
--- NOTE | 2023-08-25 10:46 | P.PN ---
Subjective Progress Note Date: 08/25/23 This is a 22-year-old female patient with a history of hypertension, chronic kidney disease, stage V, and had been on peritoneal dialysis however was quite noncompliant and had worsening lab values. She was initially at [facility] and was to have a permacath placed and to be initiated on h emodialysis however vascular surgery was not available. She was transferred here for the same. Earlier today a tunneled hemodialysis catheter was placed via the right internal jugular vein. Following the procedure she developed a hemothorax and a right-sided chest tube was placed. She was transferred to the intensive care unit for closer monitoring. Currently she is resting in bed. Awake and alert in no acute distress. There is approximately 500 mL of bloody return from her chest tube thus far. Patient is up to 100% on 2 L nasal cannula. She has been afebrile. Hemodynamically stable. Globin 8.7. Platelets 139. Sodium 142. Potassium 4.6. Bicarb 12. BUN 82. Creatinine 11.7. Glucose 131. hCG was negative. Her peritoneal dialysis will be completed and the plan is for 2 hours hemodialysis today. She was evaluated today on 08/24/2023, remains in the ICU, hemodynamically stable however the patient required 2 units of packed RBCs in the last 24 hours for drop in her hemoglobin. Patient had no more than 90 cc of blood into the Pleur- evac last night, and she had 450 initially after the chest tube was placed. In addition to the blood loss from the chest area, patient is also oozing around the hemodialysis catheter, and this was addressed by vascular surgery today, and a U-stitch was placed. Patient did receive dialysis yesterday, she is doing well at present, presently on room air, IV fluids at [facility]. Hemoglobin today is 6.6, she is to receive her second unit of packed RBCs today. Hemodialysis yesterday done and the patient had 800 cc of fluid removed. Catheter was apparently nonfunctional but that was already addressed by vascular surgery. There is no air leak noted in the chest tube today, hence the chest tube was placed on waterseal by thoracic surgery on the case. Patient has some pain over at the site of the chest tube placement, otherwise she is asymptomatic. The patient is seen today August 25, 2023 in follow-up in the intensive care unit. She is currently resting in bed. Awake and alert in no acute distress. She is maintaining O2 saturations in the 90s on 2 L/min per nasal cannula. White count 5.9. Hemoglobin 7.1. Platelets 107. Sodium 138. Potassium 4.1. Bicarb 18. BUN 62. Creatinine 10.75. Chest x-ray reveals right-sided chest tube in place with enlarging small to moderate right pneumothorax currently measuring 1.8 cm at the apex. Still with thin serosanguineous drainage in the Pleur-evac. The plan is for hemodialysis again today. She is status post 2 units of packed red blood cells this admission. Objective - Vital Signs Vital signs: Vital Signs Temp 97.8 F 08/25/23 09:00 Pulse 105 H 08/25/23 09:00 Resp 21 08/25/23 09:00 BP 120/80 08/25/23 09:00 Pulse Ox 94 L 08/25/23 09:00 FiO2 Intake & Output 08/24/23 08/25/23 08/25/23 18:59 06:59 18:59 Intake Total 600 200 60 Output Total 100 400 Balance 500 -200 60 Weight 73.4 kg Intake: IV 290 200 60 Calcium Gluconate in NaCl 100 1 gm In Saline 1 100ml. bag @ 100 mls/hr IVPB ONCE ONE Rx#:[id number] Desmopressin Acetate 16 50 mcg In Sodium Chloride 0. 9% 50 ml @ 200 mls/hr IVPB ONCE ONE Rx#: [id number] Sodium Chloride 0.9% 1, 140 200 60 000 ml @ 20 mls/hr IV . Q24H [facility] Rx#:[id number] Blood Product 310 Rc As-1 Unit 310 [id number] Output: Drainage 100 CHEST TUBE RIGHT SIDE 100 Urine 0 400 Other: Voiding Method Bedpan Toilet Toilet # Voids 1 - Exam GENERAL EXAM: Alert, 22-year-old female, on 2 L nasal cannula, fairly comfortable in no apparent distress. HEAD: Normocephalic. EYES: Normal reaction of pupils, equal size. NOSE: Clear with pink turbinates. THROAT: No erythema or exudates. NECK: No masses, no JVD. Right IJ permacath in place. Dressing dry. CHEST: No chest wall deformity. Right-sided chest tube remains in place to Pleur-evac and wall suction. LUNGS: Equal air entry with scattered rhonchi over the right lung. CVS: S1 and S2 normal with no audible murmur, regular rhythm. ABDOMEN: No hepatosplenomegaly, normal bowel sounds, no guarding or rigidity. SPINE: No scoliosis or deformity SKIN: No rashes CENTRAL NERVOUS SYSTEM: No focal deficits, tone is normal in all 4 extremities. EXTREMITIES: There is no peripheral edema. No clubbing, no cyanosis. Peripheral pulses are intact. - Labs CBC & Chem 7: 08/25/23 05:40 08/25/23 05:40 Labs: Abnormal Lab Results - Last 24 Hours (Table) 08/23/23 08/24/23 08/24/23 Range/Units 18:18 15:28 15:28 RBC 2.59 L (3.80-5.40) m/uL Hgb 7.8 L (11.4-16.0) gm/dL Hct 23.6 L (34.0-46.0) % Plt Count 108 L (150-450) k/uL Lymphocytes # (1.0-4.8) k/uL Carbon Dioxide (22-30) mmol/L BUN (7-17) mg/dL Creatinine (0.52-1.04) mg/dL Calcium (8.4-10.2) mg/dL PTH Intact 1039.0 H (14.0-72.0) pg/mL Crossmatch See Detail 08/25/23 08/25/23 Range/Units 05:40 05:40 RBC 2.30 L (3.80-5.40) m/uL Hgb 7.1 L (11.4-16.0) gm/dL Hct 21.4 L (34.0-46.0) % Plt Count 107 L (150-450) k/uL Lymphocytes # 0.9 L (1.0-4.8) k/uL Carbon Dioxide 18 L (22-30) mmol/L BUN 62 H (7-17) mg/dL Creatinine 10.75 H* (0.52-1.04) mg/dL Calcium 6.9 L (8.4-10.2) mg/dL PTH Intact (14.0-72.0) pg/mL Crossmatch Assessment and Plan Assessment: Acute on chronic kidney disease, stage V, noncompliant with peritoneal dialysis requiring conversion to hemodialysis Iatrogenic right-sided hemo-pneumothorax following right internal jugular permacath placement Anemia secondary to above requiring 2 units of packed red blood cells this admission Severe metabolic acidosis secondary to noncompliance with peritoneal dialysis. 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 Number of minutes spent on the visit: 10.
--- NOTE | 2023-08-25 11:15 | P.PN ---
Subjective Patient is seen in follow-up for end-stage renal disease. Patient was maintained on peritoneal dialysis but was not doing her treatments outpatient. Permacath was placed August 23, 2023. Tolerating dialysis well. Hemoglobin 7.1 today. No active bleeding. Vital signs are stable. General: No acute distress. HEENT: Head exam is unremarkable. LUNGS: Chest tube noted. HEART: Rate and Rhythm are regular. ABDOMEN: PD catheter noted. EXTREMITITES: Trace edema. Objective - Vital Signs Vital signs: Vital Signs Temp 97.8 F 08/25/23 09:00 Pulse 105 H 08/25/23 09:00 Resp 21 08/25/23 09:00 BP 120/80 08/25/23 09:00 Pulse Ox 94 L 08/25/23 09:00 FiO2 Intake & Output 08/24/23 08/25/23 08/25/23 18:59 06:59 18:59 Intake Total 600 200 60 Output Total 100 400 Balance 500 -200 60 Weight 73.4 kg Intake: IV 290 200 60 Calcium Gluconate in NaCl 100 1 gm In Saline 1 100ml. bag @ 100 mls/hr IVPB ONCE ONE Rx#:[id number] Desmopressin Acetate 16 50 mcg In Sodium Chloride 0. 9% 50 ml @ 200 mls/hr IVPB ONCE ONE Rx#: [id number] Sodium Chloride 0.9% 1, 140 200 60 000 ml @ 20 mls/hr IV . Q24H [facility] Rx#:[id number] Blood Product 310 Rc As-1 Unit 310 [id number] Output: Drainage 100 CHEST TUBE RIGHT SIDE 100 Urine 0 400 Other: Voiding Method Bedpan Toilet Toilet # Voids 1 - Labs CBC & Chem 7: 08/25/23 05:40 08/25/23 05:40 Labs: Abnormal Lab Results - Last 24 Hours (Table) 08/23/23 08/24/23 08/24/23 Range/Units 18:18 15:28 15:28 RBC 2.59 L (3.80-5.40) m/uL Hgb 7.8 L (11.4-16.0) gm/dL Hct 23.6 L (34.0-46.0) % Plt Count 108 L (150-450) k/uL Lymphocytes # (1.0-4.8) k/uL Carbon Dioxide (22-30) mmol/L BUN (7-17) mg/dL Creatinine (0.52-1.04) mg/dL Calcium (8.4-10.2) mg/dL PTH Intact 1039.0 H (14.0-72.0) pg/mL Crossmatch See Detail 08/25/23 08/25/23 Range/Units 05:40 05:40 RBC 2.30 L (3.80-5.40) m/uL Hgb 7.1 L (11.4-16.0) gm/dL Hct 21.4 L (34.0-46.0) % Plt Count 107 L (150-450) k/uL Lymphocytes # 0.9 L (1.0-4.8) k/uL Carbon Dioxide 18 L (22-30) mmol/L BUN 62 H (7-17) mg/dL Creatinine 10.75 H* (0.52-1.04) mg/dL Calcium 6.9 L (8.4-10.2) mg/dL PTH Intact (14.0-72.0) pg/mL Crossmatch Assessment and Plan Plan: Assessment: 1. End-stage renal disease maintained on peritoneal dialysis now transitioned to hemodialysis due to noncompliance. 2. Status post permacath placement this morning with subsequent right-sided hemothorax. Has chest tube. Being followed by cardiothoracic surgery. 3. Alport syndrome. 4. Metabolic acidosis secondary to chronic kidney disease and noncompliance with dialysis treatments. 5. Chronic kidney disease mineral bone disease. On PhosLo. Phosphorus 5.8 dated August 23, 2023. Calcium level also improving. PTH 1039. 6. Anemia of chronic kidney disease. Also component of acute blood loss. Status post blood transfusion. Received DDAVP as well. Also on Aranesp. 7. Hypertension with chronic kidney disease. Controlled. Plan: Currently seen while undergoing hemodialysis. Maintain bicarb. Maintain torsemide. Again stressed compliance with medications and dialysis treatments outpatient. Life-threatening complications, including , have been discussed with the patient multiple times. PD catheter to be removed prior to discharge. Surgery following. Add calcitriol.
--- NOTE | 2023-08-25 11:57 | P.PN ---
Subjective Progress Note Date: 08/25/23 Principal diagnosis: End-stage renal disease requiring hemodialysis Patient is seen and examined today as a follow-up. She is post to undergo hemodialysis. States no further bleeding from tunneled catheter site. Chest x- ray reports right-sided chest place with enlarging small to moderate right pneumothorax currently measuring 1.8 cm at the apex. Otherwise hazy densities show improvement possible improving pulmonary vascular congestion/pneumonitis. Patient is scheduled to undergo right video-assisted thorascopic surgery with washout today with cardiovascular surgery. Hemoglobin 7.1. She is status post 2 units of blood. Objective - Vital Signs Vital signs: Vital Signs Temp 98.0 F 08/25/23 04:00 Pulse 94 08/25/23 07:00 Resp 12 08/25/23 07:00 BP 115/71 08/25/23 07:00 Pulse Ox 95 08/25/23 07:00 FiO2 Intake & Output 08/24/23 08/25/23 08/25/23 18:59 06:59 18:59 Intake Total 600 200 20 Output Total 100 400 Balance 500 -200 20 Weight 73.4 kg Intake: IV 290 200 20 Calcium Gluconate in NaCl 100 1 gm In Saline 1 100ml. bag @ 100 mls/hr IVPB ONCE ONE Rx#:[id number] Desmopressin Acetate 16 50 mcg In Sodium Chloride 0. 9% 50 ml @ 200 mls/hr IVPB ONCE ONE Rx#: [id number] Sodium Chloride 0.9% 1, 140 200 20 000 ml @ 20 mls/hr IV . Q24H [facility] Rx#:[id number] Blood Product 310 Rc As-1 Unit 310 [id number] Output: Drainage 100 CHEST TUBE RIGHT SIDE 100 Urine 0 400 Other: Voiding Method Bedpan Toilet # Voids 1 - Exam General appearance: The patient is alert, oriented, appears in no acute distress. HET: Head is normocephalic and atraumatic. Pupils are equal and reactive. Neck: Supple. Right IJ in place without any bleeding. Heart: Regular. Lungs: Equal expansion, normal respiratory effort. Chest: No chest wall deformity. Right-sided chest tube remains in place to Pleur-evac and wall suction. Abdomen: Soft, nondistended. Extremities: Normal skin color and turgor. Neurological: No focal deficits. Strength and sensation are grossly intact. - Labs CBC & Chem 7: 08/25/23 05:40 08/25/23 05:40 Labs: Abnormal Lab Results - Last 24 Hours (Table) 08/23/23 08/23/23 08/24/23 Range/Units 14:00 18:18 15:28 RBC 2.59 L (3.80-5.40) m/uL Hgb 7.8 L (11.4-16.0) gm/dL Hct 23.6 L (34.0-46.0) % Plt Count 108 L (150-450) k/uL Lymphocytes # (1.0-4.8) k/uL Carbon Dioxide (22-30) mmol/L BUN (7-17) mg/dL Creatinine (0.52-1.04) mg/dL Calcium (8.4-10.2) mg/dL Hep Bs Antibody A (Negative) Crossmatch See Detail 08/25/23 08/25/23 Range/Units 05:40 05:40 RBC 2.30 L (3.80-5.40) m/uL Hgb 7.1 L (11.4-16.0) gm/dL Hct 21.4 L (34.0-46.0) % Plt Count 107 L (150-450) k/uL Lymphocytes # 0.9 L (1.0-4.8) k/uL Carbon Dioxide 18 L (22-30) mmol/L BUN 62 H (7-17) mg/dL Creatinine 10.75 H* (0.52-1.04) mg/dL Calcium 6.9 L (8.4-10.2) mg/dL Hep Bs Antibody (Negative) Crossmatch Assessment and Plan Assessment: 1. Iatrogenic right-sided hemothorax following a right internal jugular permacath placement 2. Severe metabolic acidosis secondary to noncompliance with peritoneal dialysis 3. End-stage renal disease on peritoneal dialysis now requiring hemodialysis 4. History of polycystic kidney disease 5. Morbid obesity, BMI 32.4 Plan: Patient was able to get hemodialysis today without any reported difficulties Continue with recommendations from nephrology Cardiothoracic surgery for continued chest tube management Continue with recommendations from cardiothoracic surgery Rest of medical management per primary medical team Thank you for this consultation, we will continue to follow. The impression and plan of care has been dictated as directed. Dr.Cuppari Hairston performed a history and examination of this patient, discussed the same with the dictator. I agree with the dictator's note ,documented as a scribe. Any additional findings or plans will be noted.
[2023-08-25] MEDS: SODIUM CHLORIDE 0.9% 500 ML 500 ML IV ONE (14:24)
[2023-08-25] MEDS ORDERED: DEXAMETHASONE SOD PHOSPHATE 10 MG/ML 1 ML VIAL ONE (14:25)
[2023-08-25] MEDS ORDERED: MIDAZOLAM 2 MG/2 ML VIAL ONE (14:25)
[2023-08-25] MEDS ORDERED: fentaNYL (PF) 50 MCG/ML 2 ML AMP ONE (14:25)
[2023-08-25] MEDS ORDERED: VECURONIUM 10 MG VIAL IV ONE (14:25)
[2023-08-25] MEDS ORDERED: NEOSTIGMINE 1 MG/ML 10 ML VIAL ONE (14:25)
[2023-08-25] MEDS ORDERED: PROPOFOL 10 MG/ML 20 ML VIAL IV ONE (14:25)
[2023-08-25] MEDS ORDERED: HYDROmorphone (PF) 1 MG/ML ONE (14:25)
[2023-08-25] MEDS ORDERED: GLYCOPYRROLATE 0.2 MG/ML 2 ML VIAL ONE (14:25)
[2023-08-25] MEDS: SODIUM CHLORIDE 0.9% 50 ML with ceFAZolin 2,000 MG IV ONE (15:19)
[2023-08-25] MEDS: BUPIVACAINE (PF) 0.25% 30 ML VIAL SQ ONE (15:33)
--- NOTE | 2023-08-25 15:48 | P.OP ---
Date of Procedure: 08/25/23 Preoperative Diagnosis: Retained Hemothorax ESRD Postoperative Diagnosis: Same Procedure(s) Performed: 1. Bronchoscopy 2. Right video assisted thorascopic surgery with washout 3. Intercostal nerve block - 3 levels 4. Removal of tunneled peritoneal dialysis catheter (Dr. Le) Implants: None Anesthesia: GETA Surgeon: Robert Crump Estimated Blood Loss (ml): 15 Pathology: none sent Condition: stable Disposition: PACU Indications for Procedure: This patient is a 22 year-old F with ESRD who was undergoing a tunneled dialysis catheter placement when she developed a hemopneumothorax. A chest tube was placed but CT scan revealed retained hemothorax. Washout was recommended. Operative Findings: Significant amount of retained clot posteriorly and around lower lobe Description of Procedure: The patient underwent arterial line placement in the pre-operative suite. She was brought back to the operating room and placed in the supine position. General anesthesia was induced and she was intubated with a double lumen tube. Bronchoscopy was performed to check tube placement and for diagnostic purposes. Her tracheobronchial tree was normal with minimal secretions. She was positioned in the left lateral decubitus position and her right chest tube was removed and right chest was prepped and draped in the usual sterile fashion. Antibiotics were given and I made a 1cm incision in the 7th intercostal space posterior axillary line. We gained entry into the chest under direct vision and the scope was inserted. A second incision was made in the mid axillary line 9th intercostal space. There was significant amount of clot posteriorly and around the lower lobe without evidence of active bleeding. This was scooped out using ring forceps and suctioned. The chest cavity was irrigated and a 28F Chest tube was placed via the inferior incision. All incisions were closed in layers and the previous chest tube site was closed with interrupted nylon suture. Glue was applied and the case was turned over to Dr. eL for his portion of the procedure.
--- NOTE | 2023-08-25 16:20 | P.OP ---
Date of Procedure: 08/25/23 Procedure(s) Performed: PREOPERATIVE DIAGNOSIS: Renal failure POSTOPERATIVE DIAGNOSIS: Same PROCEDURE: PD cath removal SURGEON: Mimi EBL: 2 mL ANESTHESIA: General COMPLICATIONS: None OPERATIVE PROCEDURE: Patient was placed in the supine position on the operating table after her VATS procedure. The abdomen was prepped and draped in usual sterile fashion. The previous paramedian incision was re-incised after localizing the skin. The subcutaneous tissues were divided using electrocautery. Blunt dissection around the cuff that was present at the fascia and peritoneum took place. The cuff was fully mobilized. The catheter was removed from the perineal cavity. The outer cuff was dissected from the saphenous fascia using electrocautery. The catheter was cut on the other side of that cuff and the catheter was removed. The fascial defect was closed using a single [id number] 0 Vicryl stitch. The subcutaneous tissues were closed using 3-0 Vicryl sutures and the skin using 4-0 Monocryl sutures. Skin glue and sterile dressings were applied. DISPOSITION: Stable to recovery room
[2023-08-25] MEDS: HYDROmorphone 0.5 MG/0.5 ML SYRINGE IVP PRN (16:58)
--- NOTE | 2023-08-25 18:14 | XR ---
EXAMINATION TYPE: XR chest 1V portable DATE OF EXAM: 08/25/2023 Comparison: Earlier today Clinical History: 22-year-old female Postop right VATS Findings: Right-sided chest tube in place. Interval reexpansion of the right lung. Some strandy densities in th e lower lungs. Improving aeration on the right. Right-sided double-lumen hemodialysis catheter with t ip in the right atrium. Heart remains mildly enlarged. Impression: Mild cardiomegaly with right-sided chest tube in place. Residual mild pulmonary vascular congestion s uspected with ongoing improvement compared to earlier today. No residual pneumothorax seen.
--- NOTE | 2023-08-25 19:09 | P.PN ---
Subjective Progress Note Date: 08/25/23 H&P Date: 08/22/23 Chief Complaint: Transferred from [facility] for tunnel cath placement per vasc surgery. This is a pleasant 22-year-old female with past medical history significant for polycystic kidney disease, requiring dialysis a couple years ago. Reports prior hemodialysis via tunneled catheters with last one removed in early July 2023. Patient was initially admitted to [facility], for tunneled catheter placement secondary to worsening renal function. Vascular surgery services were not available at that site and patient was transferred over to [facility]. Reports last peritoneal dialysis was completed yesterday evening. Nephrology and vascular surgery consults in place. Denies chest pain, palpitations or shortness of breath. Denies lightheadedness, dizziness or focal deficits. Denies headache. Denies nausea vomiting. Patient has no complaints. Vital signs stable, maintaining O2 sats of 100% on room air. 08/25/2023 right-sided hemo-pneumothorax status post right internal jugular permacath placement, right-sided chest tube placed ,required transfer into the ICU on 08/23/2023 received a unit of packed RBCs yesterday for hemoglobin of 6.6, currently 7.1. Pleuravac with serosanguineous drainage. chest x-ray reporting right-sided chest tube in place with enlarging small to moderate right pneumothorax currently measuring 1.8 cm at the apex. CTS consulted for VATS.maintaining O2 sats in the 90s on 2 L nasal cannula. Objective - Vital Signs Vital signs: Vital Signs Temp 97.8 F 08/25/23 09:00 Pulse 105 H 08/25/23 09:00 Resp 21 08/25/23 09:00 BP 120/80 08/25/23 09:00 Pulse Ox 94 L 08/25/23 09:00 FiO2 Intake & Output 08/24/23 08/25/23 08/25/23 18:59 06:59 18:59 Intake Total 600 200 60 Output Total 100 400 Balance 500 -200 60 Weight 73.4 kg Intake: IV 290 200 60 Calcium Gluconate in NaCl 100 1 gm In Saline 1 100ml. bag @ 100 mls/hr IVPB ONCE ONE Rx#:[id number] Desmopressin Acetate 16 50 mcg In Sodium Chloride 0. 9% 50 ml @ 200 mls/hr IVPB ONCE ONE Rx#: [id number] Sodium Chloride 0.9% 1, 140 200 60 000 ml @ 20 mls/hr IV . Q24H [facility] Rx#:[id number] Blood Product 310 Rc As-1 Unit 310 [id number] Output: Drainage 100 CHEST TUBE RIGHT SIDE 100 Urine 0 400 Other: Voiding Method Bedpan Toilet Toilet # Voids 1 - Exam PHYSICAL EXAM: VITAL SIGNS: [As above] GENERAL: Alert and oriented x 3, sitting up in bed, no acute distress. HEENT: Normocephalic, atraumatic, conjunctivae normal. eyes normal. NECK: Supple, no JVD. Right IJ permacath present with dressing clean dry and intact CARDIOVASCULAR: S1, S2 regular.. No murmur RESPIRATION: Unlabored, equal air entry, scattered rhonchi. Right-sided chest tube/Pleur-evac ABDOMEN: Obese, soft, nondistended, nontender . PD catheter present. no g uarding. no masses palpable LEGS: No edema. no swelling. NERVOUS SYSTEM: Cranial N 2-12 grossly normal. No focal deficits. Strength and sensation grossly intact. Skin: Warm and dry, no rash - Labs CBC & Chem 7: 08/25/23 05:40 08/25/23 05:40 Labs: Abnormal Lab Results - Last 24 Hours (Table) 08/23/23 08/24/23 08/24/23 Range/Units 18:18 15:28 15:28 RBC 2.59 L (3.80-5.40) m/uL Hgb 7.8 L (11.4-16.0) gm/dL Hct 23.6 L (34.0-46.0) % Plt Count 108 L (150-450) k/uL Lymphocytes # (1.0-4.8) k/uL Carbon Dioxide (22-30) mmol/L BUN (7-17) mg/dL Creatinine (0.52-1.04) mg/dL Calcium (8.4-10.2) mg/dL PTH Intact 1039.0 H (14.0-72.0) pg/mL Crossmatch See Detail 08/25/23 08/25/23 Range/Units 05:40 05:40 RBC 2.30 L (3.80-5.40) m/uL Hgb 7.1 L (11.4-16.0) gm/dL Hct 21.4 L (34.0-46.0) % Plt Count 107 L (150-450) k/uL Lymphocytes # 0.9 L (1.0-4.8) k/uL Carbon Dioxide 18 L (22-30) mmol/L BUN 62 H (7-17) mg/dL Creatinine 10.75 H* (0.52-1.04) mg/dL Calcium 6.9 L (8.4-10.2) mg/dL PTH Intact (14.0-72.0) pg/mL Crossmatch Assessment and Plan Assessment: ESRD on peritoneal dialysis, transitioned to hemodialysis. Noncompliant with pe ritoneal dialysis Iatrogenic right-sided hemothorax status post right internal jugular permacath placement Acute blood loss anemia, secondary to the above, status post 2 units of packed RBCs Metabolic acidosis secondary to CKD and noncompliance with peritoneal dialysis Anemia of chronic kidney disease History of polycystic kidney disease Hypertension Morbid obesity, BMI 32.4 Plan: Continue on current medication regimen ,monitoring and symptomatic treatment. Hemodialysis this morning as per nephrology. VATS pending per CTS. general surgery consult in place for removal of PD catheter. The impression and plan of care has been dictated as directed. : I performed a history and examination of this patient, discussed the same with the dictator. I agree with the dictator's note ,documented as a scribe. Any additional findings or plans will be noted.
[2023-08-26 05:26] LABS: Basophils % (A) 0 %; Eosinophils # (A) 0.1 k/uL (0-0.7); Eosinophils % (A) 1 %; HCT 20.1 % (34.0-46.0); Lymphocytes # (A) 0.3 k/uL (1.0-4.8); Lymphocytes % (A) 4 %; MCH 29.1 pg (25.0-35.0); MCHC 31.9 g/dL (31.0-37.0); MCV 91.3 fL (80.0-100.0); Mean Platelet Volume 9.5; Monocytes # (A) 0.2 k/uL (0-1.0); Monocytes % (A) 2 %; Neutrophils # (A) 6.3 k/uL (1.3-7.7); Neutrophils % (A) 93 %; Platelet Count 111 k/uL (150-450); RDW 13.5 % (11.5-15.5); WBC 6.8 k/uL (3.8-10.6)
[2023-08-26 05:38] LABS: HGB 6.4 gm/dL (11.4-16.0)
[2023-08-26 05:52] LABS: African American GFR (CKD) 6 (>60 ml/min/1.73 sqM); Anion Gap 10 mmol/L; Blood Urea Nitrogen 49 mg/dL (7-17); Calcium 6.6 mg/dL (8.4-10.2); Carbon Dioxide 20 mmol/L (22-30); Chloride 103 mmol/L (98-107); Glucose 159 mg/dL (74-99); Non-African American GFR(CKD) 5 (>60 ml/min/1.73 sqM); Potassium 4.4 mmol/L (3.5-5.1); Sodium 133 mmol/L (137-145)
--- NOTE | 2023-08-26 09:12 | XR ---
EXAMINATION TYPE: XR chest 1V portable DATE OF EXAM: 08/26/2023 Comparison: 08/25/2023 Clinical History: 22-year-old female Postop right VATS Findings: Low lung volumes. Mild cardiomegaly. Right-sided double-lumen hemodialysis catheter with tips in the right atrium. Right-sided chest tube in place. No appreciable pneumothorax. Suspect an azygos fissure . Some mild patchy density probably atelectasis remains at the left base. No ranjit consolidation or p leural effusion. Impression: 1. Hypoventilatory changes. Mild cardiomegaly and hazy densities may reflect some underlying mild pul monary vascular congestion. 2. Right-sided chest tube. No appreciable pneumothorax.
[2023-08-26 09:49] LABS: INR 1.1 (<1.2); Prothrombin Time 11.6 sec (10.0-12.5)
[2023-08-26] MEDS ORDERED: LIDOCAINE 1% INJ 10MG/ML (20 ML MDV) ONE (11:35)
--- NOTE | 2023-08-26 11:37 | P.PN ---
Subjective Progress Note Date: 08/26/23 This is a 22-year-old female patient with a history of hypertension, chronic kidney disease, stage V, and had been on peritoneal dialysis however was quite noncompliant and had worsening lab values. She was initially at [facility] and was to have a permacath placed and to be initiated on h emodialysis however vascular surgery was not available. She was transferred here for the same. Earlier today a tunneled hemodialysis catheter was placed via the right internal jugular vein. Following the procedure she developed a hemothorax and a right-sided chest tube was placed. She was transferred to the intensive care unit for closer monitoring. Currently she is resting in bed. Awake and alert in no acute distress. There is approximately 500 mL of bloody return from her chest tube thus far. Patient is up to 100% on 2 L nasal cannula. She has been afebrile. Hemodynamically stable. Globin 8.7. Platelets 139. Sodium 142. Potassium 4.6. Bicarb 12. BUN 82. Creatinine 11.7. Glucose 131. hCG was negative. Her peritoneal dialysis will be completed and the plan is for 2 hours hemodialysis today. She was evaluated today on 08/24/2023, remains in the ICU, hemodynamically stable however the patient required 2 units of packed RBCs in the last 24 hours for drop in her hemoglobin. Patient had no more than 90 cc of blood into the Pleur- evac last night, and she had 450 initially after the chest tube was placed. In addition to the blood loss from the chest area, patient is also oozing around the hemodialysis catheter, and this was addressed by vascular surgery today, and a U-stitch was placed. Patient did receive dialysis yesterday, she is doing well at present, presently on room air, IV fluids at [facility]. Hemoglobin today is 6.6, she is to receive her second unit of packed RBCs today. Hemodialysis yesterday done and the patient had 800 cc of fluid removed. Catheter was apparently nonfunctional but that was already addressed by vascular surgery. There is no air leak noted in the chest tube today, hence the chest tube was placed on waterseal by thoracic surgery on the case. Patient has some pain over at the site of the chest tube placement, otherwise she is asymptomatic. The patient is seen today August 25, 2023 in follow-up in the intensive care unit. She is currently resting in bed. Awake and alert in no acute distress. She is maintaining O2 saturations in the 90s on 2 L/min per nasal cannula. White count 5.9. Hemoglobin 7.1. Platelets 107. Sodium 138. Potassium 4.1. Bicarb 18. BUN 62. Creatinine 10.75. Chest x-ray reveals right-sided chest tube in place with enlarging small to moderate right pneumothorax currently measuring 1.8 cm at the apex. Still with thin serosanguineous drainage in the Pleur-evac. The plan is for hemodialysis again today. She is status post 2 units of packed red blood cells this admission. The patient is seen today August 26, 2023 in follow-up in the intensive care unit. She is awake and alert in no acute distress. She is maintaining O2 saturations in the 90s on 4 L/min per nasal cannula. Cardiomegaly with hazy densities with some mild pulmonary vascular congestion. Right-sided chest tube remains in place. No appreciable pneumothorax. Yesterday she had undergone a right video- assisted thoracoscopy with washout and removal of her peritoneal dialysis catheter. She is scheduled for hemodialysis catheter change today. She has normal staying at [facility]. She is encouraged regarding the increased use of the incentive spirometer and cough and deep breathing exercises. White count 6.8. Hemoglobin 6.4. Platelets 111. INR 1.1. Sodium 133. Potassium 4.4. Bicarb 20. BUN 49. Creatinine 9.55. Glucose 159. Objective - Vital Signs Vital signs: Vital Signs Temp 98.4 F 08/26/23 10:13 Pulse 94 08/26/23 10:13 Resp 16 08/26/23 10:13 BP 118/65 08/26/23 10:13 Pulse Ox 95 08/26/23 10:13 FiO2 Intake & Output 08/25/23 08/26/23 08/26/23 18:59 06:59 18:59 Intake Total 1130 240 40 Output Total 1712 275 0 Balance -582 -35 40 Weight 72.7 kg Intake: IV 630 240 40 Sodium Chloride 0.9% 1, 180 240 40 000 ml @ 20 mls/hr IV . Q24H [facility] Rx#:[id number] Blood Product 0 Unit 0 Hemodialysis 500 Output: Chest Tube Drainage 25 Chest Tube Right Lower 25 Mid-Axillary Chest Urine 300 250 0 Hemodialysis 1387 Estimated Blood Loss 25 Other: Voiding Method Toilet Toilet # Voids 0 ABP, PAP, CO, CI - Last Documented Arterial Blood Pressure 116/58 - Exam GENERAL EXAM: Alert, 22-year-old female, on 4 L nasal cannula, in no apparent distress. HEAD: Normocephalic. EYES: Normal reaction of pupils, equal size. NOSE: Clear with pink turbinates. THROAT: No erythema or exudates. NECK: No masses, no JVD. Right IJ permacath in place. Dressing dry. CHEST: No chest wall deformity. Right-sided chest tube remains in place to Pleur-evac and wall suction. LUNGS: Equal air entry with scattered rhonchi over the right lung. CVS: S1 and S2 normal with no audible murmur, regular rhythm. ABDOMEN: Peritoneal catheter site post removal clean and dry. No hepatosplenomegaly, normal bowel sounds, no guarding or rigidity. SPINE: No scoliosis or deformity SKIN: No rashes CENTRAL NERVOUS SYSTEM: No focal deficits, tone is normal in all 4 extremities. EXTREMITIES: There is no peripheral edema. No clubbing, no cyanosis. Peripheral pulses are intact. - Labs CBC & Chem 7: 08/26/23 04:30 08/26/23 04:30 Labs: Abnormal Lab Results - Last 24 Hours (Table) 08/23/23 08/26/23 08/26/23 Range/Units 18:18 04:30 04:30 RBC 2.20 L (3.80-5.40) m/uL Hgb 6.4 L* (11.4-16.0) gm/dL Hct 20.1 L (34.0-46.0) % Plt Count 111 L (150-450) k/uL Lymphocytes # 0.3 L (1.0-4.8) k/uL Sodium 133 L (137-145) mmol/L Carbon Dioxide 20 L (22-30) mmol/L BUN 49 H (7-17) mg/dL Creatinine 9.55 H* (0.52-1.04) mg/dL Glucose 159 H (74-99) mg/dL Calcium 6.6 L (8.4-10.2) mg/dL Crossmatch See Detail Assessment and Plan Assessment: Acute on chronic kidney disease, stage V, noncompliant with peritoneal dialysis requiring conversion to hemodialysis. Permacath occluded, plan is for exchange today 08/26/2023 Iatrogenic right-sided hemo-pneumothorax following right internal jugular permacath placement. Status post VATS procedure, right-sided chest tube in place, peritoneal catheter removed on 08/25/2023 Anemia secondary to above requiring 2 units of packed red blood cells, hemoglobin today August 26, 2023 6.4. Receiving a 3rd unit of packed red blood cells Severe metabolic acidosis secondary to noncompliance with peritoneal dialysis. Plan is for repeat hemodialysis today after permacath replaced Chronic kidney disease mineral bone disorder with hyperphosphatemia Hypertension Plan: The patient was seen and evaluated Chest x-rays, labs and medications reviewed Continue to monitor chest tube output Post VATS procedure yesterday Post peritoneal catheter removal yesterday Plan is for permacath replacement today Encourage increased use of the incentive spirometer Titrate the FiO2 as tolerated We will continue to follow I have personally seen and examined the patient, performed the documentation and the assessment and plan as written. Number of minutes spent on the visit: 10.
[2023-08-26] MEDS: fentaNYL (PF) 50 MCG/1 ML VIAL IVP ONE ×2 (12:07→12:17)
[2023-08-26] MEDS: MIDAZOLAM 2 MG/2 ML VIAL IVP ONE (12:07)
[2023-08-26] MEDS: LIDOCAINE 1% INJ 10MG/ML (20 ML MDV) SQ ONE (12:07)
--- NOTE | 2023-08-26 12:14 | P.PN ---
Subjective Patient is seen in follow-up for end-stage renal disease. Patient was maintained on peritoneal dialysis but was not doing her treatments outpatient. Permacath was placed August 23, 2023. Patient's access has been clotting and she is scheduled to get the catheter replaced today. PD catheter removed. Vital signs are stable. General: No acute distress. HEENT: Head exam is unremarkable. LUNGS: Chest tube noted. HEART: Rate and Rhythm are regular. ABDOMEN: Nontender. EXTREMITITES: Trace edema. Objective - Vital Signs Vital signs: Vital Signs Temp 98.4 F 08/26/23 10:13 Pulse 94 08/26/23 10:13 Resp 16 08/26/23 10:13 BP 118/65 08/26/23 10:13 Pulse Ox 95 08/26/23 10:13 FiO2 Intake & Output 08/25/23 08/26/23 08/26/23 18:59 06:59 18:59 Intake Total 1130 240 40 Output Total 1712 275 0 Balance -582 -35 40 Weight 72.7 kg Intake: IV 630 240 40 Sodium Chloride 0.9% 1, 180 240 40 000 ml @ 20 mls/hr IV . Q24H [facility] Rx#:[id number] Blood Product 0 Unit 0 Hemodialysis 500 Output: Chest Tube Drainage 25 Chest Tube Right Lower 25 Mid-Axillary Chest Urine 300 250 0 Hemodialysis 1387 Estimated Blood Loss 25 Other: Voiding Method Toilet Toilet # Voids 0 ABP, PAP, CO, CI - Last Documented Arterial Blood Pressure 116/58 - Labs CBC & Chem 7: 08/26/23 04:30 08/26/23 04:30 Labs: Abnormal Lab Results - Last 24 Hours (Table) 08/23/23 08/26/23 08/26/23 Range/Units 18:18 04:30 04:30 RBC 2.20 L (3.80-5.40) m/uL Hgb 6.4 L* (11.4-16.0) gm/dL Hct 20.1 L (34.0-46.0) % Plt Count 111 L (150-450) k/uL Lymphocytes # 0.3 L (1.0-4.8) k/uL Sodium 133 L (137-145) mmol/L Carbon Dioxide 20 L (22-30) mmol/L BUN 49 H (7-17) mg/dL Creatinine 9.55 H* (0.52-1.04) mg/dL Glucose 159 H (74-99) mg/dL Calcium 6.6 L (8.4-10.2) mg/dL Crossmatch See Detail Assessment and Plan Plan: Assessment: 1. End-stage renal disease maintained on peritoneal dialysis - now transitioned to hemodialysis due to noncompliance. PD catheter removed. 2. Status post permacath placement this morning with subsequent right-sided hemothorax. Has chest tube. Being followed by cardiothoracic surgery. 3. Alport syndrome. 4. Metabolic acidosis secondary to chronic kidney disease and noncompliance with dialysis treatments. Better. 5. Chronic kidney disease mineral bone disease. On PhosLo and calcitriol. Phosphorus 5.8 dated August 23, 2023. Calcium level stable. PTH 1039. 6. Anemia of chronic kidney disease. Also component of acute blood loss. Status post blood transfusions. Received DDAVP as well. Also on Aranesp. 7. Hypertension with chronic kidney disease. Controlled. Plan: Hemodialysis tomorrow. Patient scheduled for permacath exchange today. Maintain bicarb. Maintain torsemide. Again stressed compliance with medications and dialysis treatments outpatient. Life-threatening complications, including , have been discussed with the patient multiple times. PD catheter to be removed prior to discharge. Surgery following. 1 g IV calcium gluconate today.
[2023-08-26] MEDS: HEPARIN SODIUM 1,000 UN/ML (10ML VL) MISCELLANE ONE (12:21)
[2023-08-26] MEDS: SODIUM CHLORIDE 0.9% 500 ML 500 ML IV ONE (12:28)
[2023-08-26] MEDS: HEPARIN SODIUM,PORCINE (1 ML) 2,500 UNIT in SODIUM CHLORIDE 0.9% 250 ML IRRIGATION ONE (12:28)
[2023-08-26] MEDS: IOPAMIDOL-250 100ML BTL IVP ONE (12:51)
--- NOTE | 2023-08-26 13:20 | IR ---
EXAMINATION TYPE: IR cva device check w fluoro DATE OF EXAM: 08/26/2023 FLUOROSCOPY Dialysis cath not working, 2.5min fluoroscopy time. 1.62 Gycm2 DAP, rt IJ
[2023-08-26] MEDS: CALCIUM GLUCONATE IN NACL 1 GM in SALINE 1 100ML.BAG IVPB ONE (13:51)
--- NOTE | 2023-08-26 15:11 | P.PN ---
Subjective Progress Note Date: 08/26/23 Principal diagnosis: Right hemothorax/pneumothorax. Past medical history significant for chronic kidney disease with end-stage renal disease requiring hemodialysis, history of noncompliance with peritoneal dialysis regimen, Alport Syndrome, hypertension and is a lifetime non-smoker. POD #2 status post right pleural chest tube placement by Dr. Johnson for a hemothorax/pneumothorax POD #1 ,Bronchoscopy, right video-assisted thoracoscopic surgery with washout, intercostal nerve block3 levels, removal of tunneled peritoneal dialysis catheter by Dr. Le. The patient was seen and examined in follow-up today August 26, 2023 at her bedside in the intensive care unit. She is currently laying in bed, is awake, alert, oriented x 3 and is in no acute apparent distress. She denies any complaints of pain or shortness of breath at this time. She states she has not been out of bed since her surgery. Currently she is afebrile, oxygen saturations are 93% on 2 L nasal cannula and she is achieving 750 mL on her incentive spirometry with encouragement. Right pleural chest tube remains to low continuous wall suction -20 cm H2O. Draining thin serosanguineous drainage with 25 mL output in the last 8 hours and 210 mL output since surgery. Urine output was 115 mL in the last 8 hours. Bedside telemetry showing normal sinus rhythm heart rate 96 bpm. Chest x-ray results reviewed. Objective - Vital Signs Vital signs: Vital Signs Temp 98.4 F 08/26/23 04:00 Pulse 88 08/26/23 07:00 Resp 12 08/26/23 07:00 BP 113/71 08/26/23 05:00 Pulse Ox 95 08/26/23 07:00 FiO2 Intake & Output 08/25/23 08/26/23 08/26/23 18:59 06:59 18:59 Intake Total 1130 240 20 Output Total 1712 275 Balance -582 -35 20 Weight 72.7 kg Intake: IV 630 240 20 Sodium Chloride 0.9% 1, 180 240 20 000 ml @ 20 mls/hr IV . Q24H [facility] Rx#:[id number] Hemodialysis 500 Output: Chest Tube Drainage 25 Chest Tube Right Lower 25 Mid-Axillary Chest Urine 300 250 Hemodialysis 1387 Estimated Blood Loss 25 Other: Voiding Method Toilet Toilet ABP, PAP, CO, CI - Last Documented Arterial Blood Pressure 130/61 - Exam CONSTITUTIONAL: appears comfortable, cooperative, no apparent acute distress. HEENT: Neck is supple, no JVD, no lymphadenopathy. RESPIRATORY: Lungs sounds essentially clear throughout, diminished to his bilateral bases right greater than left. Respirations are symmetrical and nonlabored. Currently on 2 L nasal cannula with oxygen saturations 94%. Achieving 750 mL on her incentive spirometry with encouragement. Strong cough. CARDIOVASCULAR: Regular rhythm and rate. S1 and S2 present, negative for S3, gallop or murmur. GASTROINTESTINAL: Abdomen soft, nontender, nondistended. Active bowel sounds present 4 quadrants. No guarding or rigidity. GENITOURINARY: Real present draining clear, yellow urine. Urine output 115 mL mL in the last 8 hours. INTEGUMENTARY: Skin is warm and dry with no evidence of clubbing or cyanosis. NEUROLOGIC: Cranial nerves II through XII intact. No focal deficits. MUSKULOSKELETAL: Able to move all extremities, strength equal bilaterally. PSYCHIATRIC: Alert and oriented to person place and time, appropriate affect, intact judgment and insight. INVASIVE LINES AND TUBES: Right pleural chest tubes present and connected to low continuous wall suction, no air leaks present. Right pleural chest tube 25 mL of thin serosanguineous drainage in the last 8 hours and 210 mL of drainage in the last 24 hours. - Allied health notes Allied health notes reviewed: nursing - Labs CBC & Chem 7: 08/26/23 04:30 08/26/23 04:30 Labs: Abnormal Lab Results - Last 24 Hours (Table) 08/23/23 08/24/23 08/26/23 Range/Units 18:18 15:28 04:30 RBC 2.20 L (3.80-5.40) m/uL Hgb 6.4 L* (11.4-16.0) gm/dL Hct 20.1 L (34.0-46.0) % Plt Count 111 L (150-450) k/uL Lymphocytes # 0.3 L (1.0-4.8) k/uL Sodium (137-145) mmol/L Carbon Dioxide (22-30) mmol/L BUN (7-17) mg/dL Creatinine (0.52-1.04) mg/dL Glucose (74-99) mg/dL Calcium (8.4-10.2) mg/dL PTH Intact 1039.0 H (14.0-72.0) pg/mL Crossmatch See Detail 08/26/23 Range/Units 04:30 RBC (3.80-5.40) m/uL Hgb (11.4-16.0) gm/dL Hct (34.0-46.0) % Plt Count (150-450) k/uL Lymphocytes # (1.0-4.8) k/uL Sodium 133 L (137-145) mmol/L Carbon Dioxide 20 L (22-30) mmol/L BUN 49 H (7-17) mg/dL Creatinine 9.55 H* (0.52-1.04) mg/dL Glucose 159 H (74-99) mg/dL Calcium 6.6 L (8.4-10.2) mg/dL PTH Intact (14.0-72.0) pg/mL Crossmatch - Imaging and Cardiology Chest x-ray: report reviewed, image reviewed Assessment and Plan Assessment: Right hemo-/pneumothorax, status post chest tube placement by Dr. Johnson Retained right-sided hemothorax, status post right video-assisted thoracoscopic surgery with washout Alport syndrome, end-stage renal disease on peritoneal dialysis with significant noncompliance as outpatient status post hemodialysis catheter placement by Dr. Johnson Hypertension Morbid obesity with BMI of 32.4 kg/m Plan: We will place her right pleural chest tube to waterseal and removed from suc tion. Continue to monitor strict output. Encourage use of incentive spirometry 10 times every hour while awake. Wean oxygen as tolerated. Oxygen and bronchodilators managed by pulmonary/critical care medicine. Place right pleural chest tube to waterseal. Continue to monitor daily chest x-rays. Pain management per current as needed orders. More recommendations to follow based on patient's clinical course. Time with Patient: Less than 30
--- NOTE | 2023-08-26 16:02 | P.PN ---
Subjective Progress Note Date: 08/26/23 CHIEF COMPLAINT: Renal failure HISTORY OF PRESENT ILLNESS: Patient today is status post PD catheter removal with Dr. Le and VATS procedure with Dr. Crump for retained hemothorax yesterday. Patient is currently in the ICU. She is scheduled to have hemodialysis catheter placed and to start hemodialysis tomorrow. Afebrile. WBC 6.8 HGb 6.4 patient received 1 unit of blood PHYSICAL EXAM: VITAL SIGNS: Reviewed. GENERAL: no acute distress. ABDOMEN: Soft. Nondistended. Nontender. Incision site clean dry and intact NEUROLOGIC: Alert and oriented. Cranial nerves II through XII grossly intact. ASSESSMENT: 1. End-stage renal disease status post PD catheter removal PLAN: -Further recommendations forthcoming per surgeon -Patient followed by nephrology and scheduled for hemodialysis tomorrow Physician Bag Machine Helper note has been reviewed by physician. Signing provider agrees with the documented findings, assessment, and plan of care. I have personally seen and examined the patient, reviewed the SUPERVISOR CD AREA /PAs history, exam and MDM and agree with the assessment and plan as written. Based on total visit time, I have performed more than 50% of the visit. As above: Patient doing well today. Incision is clean and dry. Will sign off. Please reconsult if needed. Objective - Vital Signs Vital signs: Vital Signs Temp 98.4 F 08/26/23 10:13 Pulse 96 08/26/23 15:00 Resp 15 08/26/23 15:00 BP 118/65 08/26/23 10:13 Pulse Ox 94 L 08/26/23 15:00 FiO2 Intake & Output 08/25/23 08/26/23 08/26/23 18:59 06:59 18:59 Intake Total 1130 240 890 Output Total 1712 275 0 Balance -582 -35 890 Weight 72.7 kg Intake: IV 630 240 180 Calcium Gluconate in NaCl 100 1 gm In Saline 1 100ml. bag @ 100 mls/hr IVPB ONCE ONE Rx#:[id number] Sodium Chloride 0.9% 1, 180 240 80 000 ml @ 20 mls/hr IV . Q24H [facility] Rx#:[id number] Oral 400 Blood Product 310 Rc As-1 Unit 310 [id number] Hemodialysis 500 Output: Chest Tube Drainage 25 Chest Tube Right Lower 25 Mid-Axillary Chest Urine 300 250 0 Hemodialysis 1387 Estimated Blood Loss 25 Other: Voiding Method Toilet Toilet Toilet # Voids 0 ABP, PAP, CO, CI - Last Documented Arterial Blood Pressure 112/56 - Labs CBC & Chem 7: 08/26/23 04:30 08/26/23 04:30 Labs: Abnormal Lab Results - Last 24 Hours (Table) 08/23/23 08/26/23 08/26/23 Range/Units 18:18 04:30 04:30 RBC 2.20 L (3.80-5.40) m/uL Hgb 6.4 L* (11.4-16.0) gm/dL Hct 20.1 L (34.0-46.0) % Plt Count 111 L (150-450) k/uL Lymphocytes # 0.3 L (1.0-4.8) k/uL Sodium 133 L (137-145) mmol/L Carbon Dioxide 20 L (22-30) mmol/L BUN 49 H (7-17) mg/dL Creatinine 9.55 H* (0.52-1.04) mg/dL Glucose 159 H (74-99) mg/dL Calcium 6.6 L (8.4-10.2) mg/dL Crossmatch See Detail
--- NOTE | 2023-08-26 16:13 | P.OP ---
Date of Procedure: 08/26/23 Preoperative Diagnosis: Dysfunctional tunneled dialysis catheter Postoperative Diagnosis: same Procedure(s) Performed: Repositioning of right IJ tunneled hemodialysis catheter under fluoroscopic guidance Central venogram Anesthesia: local Surgeon: Jose Manuel Guzman Estimated Blood Loss (ml): 2 Pathology: none sent Condition: stable Disposition: ICU Indications for Procedure: 22 year old female with history of right tunneled HD catheter placed over the weekend which has been having issues with completing dialysis. Her procedure was complicated with hemo/pneumothorax after the procedure and she has undergone a VATS, and removal of her PD catheter yesterday. She presents to the stores laborer for repositioning and possible replacement of the catheter after recent CTA demonstrated the catheter in the Azygos vein. Description of Procedure: After written and informed consent the patient was taken to the stores laborer and laid in a supine position. The neck, chest and existing catheter were prepped and draped in the usual fashion. Timeout was performed in usual fashion. Local anesthetic was then infused into the soft tissues above the curve of the catheter at the neck and a small incision was created with an 11 blade scalpel. Dissection was then carried down to the catheter and the catheter was grasped and pulled cephalad under fluoroscopy until it was out of the azygos vein. Venogram was obtained demonstrating no evidence of vessel injury and good placement in the superior vena cava. A glidewire was then placed through the catheter and directed to the heart and ultimately down to the inferior vena cava. The catheter was then directed into the inferior vena cava. The wire was removed and ports were assessed. They thee and flushed easily. The catheter was then heplocked. The incision was then closed with 4-0 Vicryl suture and dressings placed. The patient tolerated the procedure well and was sent back to ICU for recovery.
--- NOTE | 2023-08-26 16:49 | P.PN ---
Subjective Progress Note Date: 08/26/23 H&P Date: 08/22/23 Chief Complaint: Transferred from [facility] for tunnel cath placement per vasc surgery. This is a pleasant 22-year-old female with past medical history significant for polycystic kidney disease, requiring dialysis a couple years ago. Reports prior hemodialysis via tunneled catheters with last one removed in early July 2023. Patient was initially admitted to [facility], for tunneled catheter placement secondary to worsening renal function. Vascular surgery services were not available at that site and patient was transferred over to [facility]. Reports last peritoneal dialysis was completed yesterday evening. Nephrology and vascular surgery consults in place. Denies chest pain, palpitations or shortness of breath. Denies lightheadedness, dizziness or focal deficits. Denies headache. Denies nausea vomiting. Patient has no complaints. Vital signs stable, maintaining O2 sats of 100% on room air. 08/25/2023 right-sided hemo-pneumothorax status post right internal jugular permacath placement, right-sided chest tube placed ,required transfer into the ICU on 08/23/2023 received a unit of packed RBCs yesterday for hemoglobin of 6.6, currently 7.1. Pleuravac with serosanguineous drainage. chest x-ray reporting right-sided chest tube in place with enlarging small to moderate right pneumothorax currently measuring 1.8 cm at the apex. CTS consulted for VATS.maintaining O2 sats in the 90s on 2 L nasal cannula. 08/26/2023 dysfunctional tunneled dialysis catheter-clotting, repositioning scheduled for this afternoon with vascular surgery. PD catheter removed yesterday. Right VATS completed yesterday per CTS. afebrile, WBC within normal limits. Hemoglobin 6.4, received 1 unit packed RBCs. Platelets 111. Denies chest pain, palpitations or shortness of breath. Maintaining O2 sats in the 90s on 4 L nasal cannula. Objective - Vital Signs Vital signs: Vital Signs Temp 98.4 F 08/26/23 10:13 Pulse 96 08/26/23 15:00 Resp 15 08/26/23 15:00 BP 118/65 08/26/23 10:13 Pulse Ox 94 L 08/26/23 15:00 FiO2 Intake & Output 08/25/23 08/26/23 08/26/23 18:59 06:59 18:59 Intake Total 1130 240 890 Output Total 1712 275 0 Balance -582 -35 890 Weight 72.7 kg Intake: IV 630 240 180 Calcium Gluconate in NaCl 100 1 gm In Saline 1 100ml. bag @ 100 mls/hr IVPB ONCE ONE Rx#:[id number] Sodium Chloride 0.9% 1, 180 240 80 000 ml @ 20 mls/hr IV . Q24H [facility] Rx#:[id number] Oral 400 Blood Product 310 Rc As-1 Unit 310 [id number] Hemodialysis 500 Output: Chest Tube Drainage 25 Chest Tube Right Lower 25 Mid-Axillary Chest Urine 300 250 0 Hemodialysis 1387 Estimated Blood Loss 25 Other: Voiding Method Toilet Toilet Toilet # Voids 0 ABP, PAP, CO, CI - Last Documented Arterial Blood Pressure 112/56 - Exam PHYSICAL EXAM: VITAL SIGNS: [As above] GENERAL: Alert and oriented x 3, sitting up in bed, no acute distress. HEENT: Normocephalic, atraumatic, conjunctivae normal. eyes normal. NECK: Supple, no JVD. Right IJ permacath present with dressing clean dry and intact CARDIOVASCULAR: S1, S2 regular.. No murmur RESPIRATION: Unlabored, equal air entry, scattered rhonchi. Right-sided chest tube/[place] ABDOMEN: Obese, soft, nondistended, nontender . PD catheter present. no guarding. no masses palpable LEGS: No edema. no swelling. NERVOUS SYSTEM: Cranial N 2-12 grossly normal. No focal deficits. Strength and sensation grossly intact. Skin: Warm and dry, no rash - Labs CBC & Chem 7: 08/26/23 04:30 08/26/23 04:30 Labs: Abnormal Lab Results - Last 24 Hours (Table) 08/23/23 08/26/23 08/26/23 Range/Units 18:18 04:30 04:30 RBC 2.20 L (3.80-5.40) m/uL Hgb 6.4 L* (11.4-16.0) gm/dL Hct 20.1 L (34.0-46.0) % Plt Count 111 L (150-450) k/uL Lymphocytes # 0.3 L (1.0-4.8) k/uL Sodium 133 L (137-145) mmol/L Carbon Dioxide 20 L (22-30) mmol/L BUN 49 H (7-17) mg/dL Creatinine 9.55 H* (0.52-1.04) mg/dL Glucose 159 H (74-99) mg/dL Calcium 6.6 L (8.4-10.2) mg/dL Crossmatch See Detail Assessment and Plan Assessment: ESRD on peritoneal dialysis, transitioned to hemodialysis. Noncompliant with peritoneal dialysis. Status post removal of PD catheter. Iatrogenic right-sided hemothorax status post right internal jugular permacath placement, status post VATS procedure Acute blood loss anemia, secondary to the above, status post 2 units of packed RBCs Metabolic acidosis secondary to CKD and noncompliance with peritoneal dialysis Anemia of chronic kidney disease History of polycystic kidney disease Hypertension Morbid obesity, BMI 32.4 Plan: Continue on current medication regimen ,monitoring and symptomatic treatment. Repositioning of tunneled cath with vascular surgery today. VATS pending per CTS. general surgery consult in place for removal of PD catheter. The impression and plan of care has been dictated as directed. : I performed a history and examination of this patient, discussed the same with the dictator. I agree with the dictator's note ,documented as a scribe. Any additional findings or plans will be noted.
[2023-08-26 17:54] LABS: HCT 23.5 % (34.0-46.0); HGB 7.5 gm/dL (11.4-16.0); MCH 29.4 pg (25.0-35.0); MCHC 31.8 g/dL (31.0-37.0); MCV 92.4 fL (80.0-100.0); Mean Platelet Volume 11.2; Platelet Count 114 k/uL (150-450); RBC 2.55 m/uL (3.80-5.40); RDW 13.4 % (11.5-15.5); WBC 9.5 k/uL (3.8-10.6)
[2023-08-26] MEDS ORDERED: HYDROcodone/APAP 7.5-325MG 1 EACH TAB PO PRN (22:30)
[2023-08-27 05:10] LABS: African American GFR (CKD) 6 (>60 ml/min/1.73 sqM); Anion Gap 12 mmol/L; Blood Urea Nitrogen 59 mg/dL (7-17); Carbon Dioxide 18 mmol/L (22-30); Chloride 98 mmol/L (98-107); Glucose 116 mg/dL (74-99); Non-African American GFR(CKD) 5 (>60 ml/min/1.73 sqM); Potassium 4.4 mmol/L (3.5-5.1); Sodium 128 mmol/L (137-145)
[2023-08-27 05:21] LABS: Basophils % (A) 0 %; Eosinophils # (A) 0.1 k/uL (0-0.7); Eosinophils % (A) 1 %; HGB 7.1 gm/dL (11.4-16.0); Lymphocytes # (A) 0.8 k/uL (1.0-4.8); Lymphocytes % (A) 7 %; MCH 30.7 pg (25.0-35.0); MCHC 33.8 g/dL (31.0-37.0); MCV 90.6 fL (80.0-100.0); Mean Platelet Volume 9.6; Monocytes # (A) 0.4 k/uL (0-1.0); Monocytes % (A) 4 %; Neutrophils # (A) 9.4 k/uL (1.3-7.7); Neutrophils % (A) 87 %; Platelet Count 134 k/uL (150-450); RBC 2.32 m/uL (3.80-5.40); RDW 13.7 % (11.5-15.5); WBC 10.8 k/uL (3.8-10.6)
[2023-08-27 05:52] LABS: Calcium 5.5 mg/dL (8.4-10.2)
[2023-08-27] MEDS: CALCIUM GLUCONATE IN NACL 2 GM in SALINE 1 100ML.BAG IVPB ONE (06:37)
--- NOTE | 2023-08-27 09:29 | P.PN ---
Subjective Progress Note Date: 08/27/23 Principal diagnosis: Right hemothorax/pneumothorax. Previous medical history of chronic kidney disease with end-stage renal disease requiring hemodialysis, history of noncompliance with peritoneal dialysis regimen, Alport Syndrome, hypertension and is a lifetime non-smoker. POD #3 right pleural chest tube placement by Dr. Johnson POD #2 bronchoscopy, right video-assisted thoracoscopic surgery with washout, intercostal nerve block3 levels, removal of tunneled peritoneal dialysis catheter by Dr. Le POD #1 repositioning of right IJ tunneled hemodialysis catheter under fluoroscopic guidance, central venogram by Dr. Guzman This young lady was seen and examined with Dr. Crump sitting up in bed in no acute distress eating breakfast. She remains on 3 L nasal cannula with oxygen saturation in the mid 90s, currently in sinus rhythm, hemodynamically stable. Right pleural chest tube was present to waterseal this morning with no airleak present. Chest x-ray, labs reviewed. No other new concerns. Objective - Vital Signs Vital signs: Vital Signs Temp 97.8 F 08/27/23 08:00 Pulse 99 08/27/23 08:00 Resp 12 08/27/23 08:00 BP 113/71 08/27/23 07:00 Pulse Ox 91 L 08/27/23 08:00 FiO2 Intake & Output 08/26/23 08/27/23 08/27/23 18:59 06:59 18:59 Intake Total 1200 460 20 Output Total 0 465 Balance 1200 -5 20 Intake: IV 240 260 20 Calcium Gluconate in NaCl 100 1 gm In Saline 1 100ml. bag @ 100 mls/hr IVPB ONCE ONE Rx#:[id number] Sodium Chloride 0.9% 1, 140 260 20 000 ml @ 20 mls/hr IV . Q24H [facility] Rx#:[id number] Oral 650 200 Blood Product 310 Rc As-1 Unit 310 [id number] Output: Drainage 115 CHEST TUBE RIGHT SIDE 115 Urine 0 350 Other: Voiding Method Toilet Toilet # Voids 0 0 ABP, PAP, CO, CI - Last Documented Arterial Blood Pressure 135/69 - Exam CONSTITUTIONAL: Appears comfortable, cooperative, no acute distress RESPIRATORY: Lungs sounds diminished in the right base. Respirations even, nonlabored. Currently on 3 L nasal cannula with oxygen saturation 94%. Able to achieve 1000 mL on incentive spirometry. Strong cough. CARDIOVASCULAR: S1, S2 present. Regular rate and rhythm, sinus rhythm on telemetry. Palpable peripheral pulses bilaterally. No edema present. No calf pain or tenderness noted. SCDs present. GASTROINTESTINAL: Abdomen soft, nontender, nondistended. Active bowel sounds present 4 quadrants. Tolerating diet. Positive bowel movement 08/21 GENITOURINARY: Real present draining clear, yellow urine, 350 mL in the last 24 hours. Right internal jugular permacath present INTEGUMENTARY: Skin is warm and dry NEUROLOGIC: Cranial nerves II through XII intact MUSKULOSKELETAL: Able to move all extremities, strength equal bilaterally PSYCHIATRIC: Alert and oriented to person place and time, appropriate affect, intact judgment and insight INVASIVE LINES AND TUBES: Right pleural chest tube present to waterseal, no air leaks present, 200 mL output in the last 24 hours - Allied health notes Allied health notes reviewed: nursing - Labs CBC & Chem 7: 08/27/23 03:53 08/27/23 03:53 Labs: Abnormal Lab Results - Last 24 Hours (Table) 08/23/23 08/26/23 08/27/23 Range/Units 18:18 17:45 03:53 WBC 10.8 H (3.8-10.6) k/uL RBC 2.55 L 2.32 L (3.80-5.40) m/uL Hgb 7.5 L 7.1 L (11.4-16.0) gm/dL Hct 23.5 L 21.0 L (34.0-46.0) % Plt Count 114 L 134 L (150-450) k/uL Neutrophils # 9.4 H (1.3-7.7) k/uL Lymphocytes # 0.8 L (1.0-4.8) k/uL Sodium (137-145) mmol/L Carbon Dioxide (22-30) mmol/L BUN (7-17) mg/dL Creatinine (0.52-1.04) mg/dL Glucose (74-99) mg/dL Calcium (8.4-10.2) mg/dL Crossmatch See Detail 08/27/23 Range/Units 03:53 WBC (3.8-10.6) k/uL RBC (3.80-5.40) m/uL Hgb (11.4-16.0) gm/dL Hct (34.0-46.0) % Plt Count (150-450) k/uL Neutrophils # (1.3-7.7) k/uL Lymphocytes # (1.0-4.8) k/uL Sodium 128 L (137-145) mmol/L Carbon Dioxide 18 L (22-30) mmol/L BUN 59 H (7-17) mg/dL Creatinine 10.17 H* (0.52-1.04) mg/dL Glucose 116 H (74-99) mg/dL Calcium 5.5 L* (8.4-10.2) mg/dL Crossmatch - Imaging and Cardiology Chest x-ray: image reviewed Assessment and Plan Assessment: Right hemothorax/pneumothorax, status post right pleural chest tube placement by Dr. Johnson followed by bronchoscopy, right video-assisted thoracoscopic surgery with washout History of chronic kidney disease with end-stage renal disease requiring hemodialysis, status post removal of tunneled peritoneal dialysis catheter by Dr. Le, repositioning of right IJ tunneled hemodialysis catheter under fluoroscopic guidance, central venogram by Dr. Guzman History of noncompliance with peritoneal dialysis regimen Alport Syndrome Hypertension Lifetime non-smoker Plan: Right-sided chest tube discontinued without incident. Dressing to remain in place for 48 hours then may remove and shower daily Wean oxygen as tolerated. Encourage incentive spirometry use 10 times every hour while awake, bronchodilators per pulmonology Pain control per current medication regimen Will continue to see on an as-needed basis Discharge instructions, contact information placed on discharge plan
--- NOTE | 2023-08-27 09:58 | XR ---
EXAMINATION TYPE: XR chest 1V portable DATE OF EXAM: 08/27/2023 Comparison: 08/26/2023 Clinical History: 22-year-old female Postop right VATS Findings: Right-sided chest tube in place. There is a trace right apical pneumothorax now demonstrated measurin g 2 mm. This extends to the lateral aspect of the mid chest. Hypoventilatory changes likely accountin g for the generalized hazy densities. Interstitium appears to show some improvement. Heart mildly enl arged. Right-sided double lumen hemodialysis catheter tips in the lower right atrium. Impression: 1. Right-sided chest tube in place. Trace right-sided pneumothorax now noted measuring 2 mm. 2. Mild cardiomegaly. Prominent hypoventilatory changes limiting parenchymal assessment.
--- NOTE | 2023-08-27 10:31 | P.PN ---
Subjective Progress Note Date: 08/27/23 H&P Date: 08/22/23 Chief Complaint: Transferred from [facility] for tunnel cath placement per vasc surgery. This is a pleasant 22-year-old female with past medical history significant for polycystic kidney disease, requiring dialysis a couple years ago. Reports prior hemodialysis via tunneled catheters with last one removed in early July 2023. Patient was initially admitted to [facility], for tunneled catheter placement secondary to worsening renal function. Vascular surgery services were not available at that site and patient was transferred over to [facility]. Reports last peritoneal dialysis was completed yesterday evening. Nephrology and vascular surgery consults in place. Denies chest pain, palpitations or shortness of breath. Denies lightheadedness, dizziness or focal deficits. Denies headache. Denies nausea vomiting. Patient has no complaints. Vital signs stable, maintaining O2 sats of 100% on room air. 08/25/2023 right-sided hemo-pneumothorax status post right internal jugular permacath placement, right-sided chest tube placed ,required transfer into the ICU on 08/23/2023 received a unit of packed RBCs yesterday for hemoglobin of 6.6, currently 7.1. Pleuravac with serosanguineous drainage. chest x-ray reporting right-sided chest tube in place with enlarging small to moderate right pneumothorax currently measuring 1.8 cm at the apex. CTS consulted for VATS.maintaining O2 sats in the 90s on 2 L nasal cannula. 08/26/2023 dysfunctional tunneled dialysis catheter-clotting, repositioning scheduled for this afternoon with vascular surgery. PD catheter removed yesterday. Right VATS completed yesterday per CTS. afebrile, WBC within normal limits. Hemoglobin 6.4, received 1 unit packed RBCs. Platelets 111. Denies chest pain, palpitations or shortness of breath. Maintaining O2 sats in the 90s on 4 L nasal cannula. 08/27/2023 chest x-ray reported trace right-sided pneumothorax noted measuring 2 mm .right pleural chest tube to waterseal with no air leak this morning, recently discontinued by CTS. maintaining O2 sats in the 90s on 3 L nasal cannula. Telemetry sinus rhythm. Right IJ tunneled hemodialysis catheter repositioned yesterday under fluoroscopy, tolerated procedure well. Scheduled for hemodialysis today. Hemoglobin 7.1, platelets 134, sodium 128. Objective - Vital Signs Vital signs: Vital Signs Temp 97.8 F 08/27/23 08:00 Pulse 99 08/27/23 08:00 Resp 12 08/27/23 08:00 BP 113/71 08/27/23 07:00 Pulse Ox 91 L 08/27/23 08:00 FiO2 Intake & Output 08/26/23 08/27/23 08/27/23 18:59 06:59 18:59 Intake Total 1200 460 20 Output Total 0 465 Balance 1200 -5 20 Intake: IV 240 260 20 Calcium Gluconate in NaCl 100 1 gm In Saline 1 100ml. bag @ 100 mls/hr IVPB ONCE ONE Rx#:[id number] Sodium Chloride 0.9% 1, 140 260 20 000 ml @ 20 mls/hr IV . Q24H [facility] Rx#:[id number] Oral 650 200 Blood Product 310 Rc As-1 Unit 310 [id number] Output: Drainage 115 CHEST TUBE RIGHT SIDE 115 Urine 0 350 Other: Voiding Method Toilet Toilet # Voids 0 0 ABP, PAP, CO, CI - Last Documented Arterial Blood Pressure 135/69 - Exam PHYSICAL EXAM: VITAL SIGNS: [As above] GENERAL: Alert and oriented x 3, sitting up in bed, no acute distress. HEENT: Normocephalic, atraumatic, conjunctivae normal. eyes normal. NECK: Supple, no JVD. Right IJ tunneled hemodialysis catheter dressing clean dry and intact CARDIOVASCULAR: S1, S2 regular.. No murmur RESPIRATION: Unlabored, equal air entry, essentially clear with bilateral bases diminished. ABDOMEN: Obese, soft, nondistended, nontender.no guarding. no masses palpable LEGS: No edema. no swelling. NERVOUS SYSTEM: Cranial N 2-12 grossly normal. No focal deficits. Strength and sensation grossly intact. Skin: Warm and dry, no rash - Labs CBC & Chem 7: 08/27/23 03:53 08/27/23 03:53 Labs: Abnormal Lab Results - Last 24 Hours (Table) 08/23/23 08/26/23 08/27/23 Range/Units 18:18 17:45 03:53 WBC 10.8 H (3.8-10.6) k/uL RBC 2.55 L 2.32 L (3.80-5.40) m/uL Hgb 7.5 L 7.1 L (11.4-16.0) gm/dL Hct 23.5 L 21.0 L (34.0-46.0) % Plt Count 114 L 134 L (150-450) k/uL Neutrophils # 9.4 H (1.3-7.7) k/uL Lymphocytes # 0.8 L (1.0-4.8) k/uL Sodium (137-145) mmol/L Carbon Dioxide (22-30) mmol/L BUN (7-17) mg/dL Creatinine (0.52-1.04) mg/dL Glucose (74-99) mg/dL Calcium (8.4-10.2) mg/dL Crossmatch See Detail 08/27/23 Range/Units 03:53 WBC (3.8-10.6) k/uL RBC (3.80-5.40) m/uL Hgb (11.4-16.0) gm/dL Hct (34.0-46.0) % Plt Count (150-450) k/uL Neutrophils # (1.3-7.7) k/uL Lymphocytes # (1.0-4.8) k/uL Sodium 128 L (137-145) mmol/L Carbon Dioxide 18 L (22-30) mmol/L BUN 59 H (7-17) mg/dL Creatinine 10.17 H* (0.52-1.04) mg/dL Glucose 116 H (74-99) mg/dL Calcium 5.5 L* (8.4-10.2) mg/dL Crossmatch Assessment and Plan Assessment: ESRD on peritoneal dialysis, transitioned to hemodialysis. Noncompliant with peritoneal dialysis. Status post removal of PD catheter. Status post repositioning of right IJ tunneled hemodialysis catheter under fluoroscopy 08/26/2023 Iatrogenic right-sided hemothorax status post right internal jugular permacath , status post VATS procedure Acute blood loss anemia, secondary to the above, status post 2 units of packed RBCs Metabolic acidosis secondary to CKD and noncompliance with peritoneal dialysis Anemia of chronic kidney disease History of polycystic kidney disease Hypertension Morbid obesity, BMI 32.4 Plan: Continue on current medication regimen ,monitoring and symptomatic treatment. Aggressive pulmonary toileting, incentive spirometer reinforced. Increase ambulation as tolerated. The impression and plan of care has been dictated as directed. : I performed a history and examination of this patient, discussed the same with the dictator. I agree with the dictator's note ,documented as a scribe. Any additional findings or plans will be noted.
--- NOTE | 2023-08-27 10:44 | P.PN ---
Subjective Patient is seen in follow-up for end-stage renal disease. Patient was maintained on peritoneal dialysis but was not doing her treatments outpatient. Permacath was placed August 23, 2023 and was repositioned August 26, 2023. PD catheter has been removed. Chest tube also removed this morning. No active complaints. Vital signs are stable. General: No acute distress. HEENT: Head exam is unremarkable. LUNGS: Chest tube noted. HEART: Rate and Rhythm are regular. ABDOMEN: Nontender. EXTREMITITES: No edema. Objective - Vital Signs Vital signs: Vital Signs Temp 97.8 F 08/27/23 08:00 Pulse 99 08/27/23 08:00 Resp 12 08/27/23 08:00 BP 113/71 08/27/23 07:00 Pulse Ox 91 L 08/27/23 08:00 FiO2 Intake & Output 08/26/23 08/27/23 08/27/23 18:59 06:59 18:59 Intake Total 1200 460 20 Output Total 0 465 Balance 1200 -5 20 Intake: IV 240 260 20 Calcium Gluconate in NaCl 100 1 gm In Saline 1 100ml. bag @ 100 mls/hr IVPB ONCE ONE Rx#:[id number] Sodium Chloride 0.9% 1, 140 260 20 000 ml @ 20 mls/hr IV . Q24H [facility] Rx#:[id number] Oral 650 200 Blood Product 310 Rc As-1 Unit 310 [id number] Output: Drainage 115 CHEST TUBE RIGHT SIDE 115 Urine 0 350 Other: Voiding Method Toilet Toilet # Voids 0 0 ABP, PAP, CO, CI - Last Documented Arterial Blood Pressure 135/69 - Labs CBC & Chem 7: 08/27/23 03:53 08/27/23 03:53 Labs: Abnormal Lab Results - Last 24 Hours (Table) 08/23/23 08/26/23 08/27/23 Range/Units 18:18 17:45 03:53 WBC 10.8 H (3.8-10.6) k/uL RBC 2.55 L 2.32 L (3.80-5.40) m/uL Hgb 7.5 L 7.1 L (11.4-16.0) gm/dL Hct 23.5 L 21.0 L (34.0-46.0) % Plt Count 114 L 134 L (150-450) k/uL Neutrophils # 9.4 H (1.3-7.7) k/uL Lymphocytes # 0.8 L (1.0-4.8) k/uL Sodium (137-145) mmol/L Carbon Dioxide (22-30) mmol/L BUN (7-17) mg/dL Creatinine (0.52-1.04) mg/dL Glucose (74-99) mg/dL Calcium (8.4-10.2) mg/dL Crossmatch See Detail 08/27/23 Range/Units 03:53 WBC (3.8-10.6) k/uL RBC (3.80-5.40) m/uL Hgb (11.4-16.0) gm/dL Hct (34.0-46.0) % Plt Count (150-450) k/uL Neutrophils # (1.3-7.7) k/uL Lymphocytes # (1.0-4.8) k/uL Sodium 128 L (137-145) mmol/L Carbon Dioxide 18 L (22-30) mmol/L BUN 59 H (7-17) mg/dL Creatinine 10.17 H* (0.52-1.04) mg/dL Glucose 116 H (74-99) mg/dL Calcium 5.5 L* (8.4-10.2) mg/dL Crossmatch Assessment and Plan Plan: Assessment: 1. End-stage renal disease maintained on peritoneal dialysis - now transitioned to hemodialysis due to noncompliance. PD catheter removed. 2. Status post permacath placement with subsequent right-sided hemothorax. Chest tube removed. Being followed by cardiothoracic surgery. 3. Alport syndrome. 4. Metabolic acidosis secondary to chronic kidney disease and noncompliance with dialysis treatments. 5. Chronic kidney disease mineral bone disease. On PhosLo and calcitriol. Status post IV calcium. Phosphorus 5.8 dated August 23, 2023. Calcium level 5.5. PTH 1039. 6. Anemia of chronic kidney disease. Also component of acute blood loss. Status post blood transfusions. Received DDAVP as well. Also on Aranesp. 7. Hypertension with chronic kidney disease. Controlled. Plan: Hemodialysis today. Maintain bicarb. Maintain torsemide. Again stressed compliance with medications and dialysis treatments outpatient. Life-threatening complications, including , have been discussed with the patient multiple times. Status post IV calcium this morning.
--- NOTE | 2023-08-27 11:35 | P.PN ---
Subjective Progress Note Date: 08/27/23 Principal diagnosis: End-stage renal disease requiring hemodialysis Seen and examined today as a follow-up. Yesterday she had repositioning of the right IJ tunneled HD catheter. She denies any bleeding from tunneled catheter site. She is scheduled to have hemodialysis today. Cardio thoracic surgery following and remove chest tube today. Objective - Vital Signs Vital signs: Vital Signs Temp 97.8 F 08/27/23 08:00 Pulse 99 08/27/23 08:00 Resp 12 08/27/23 08:00 BP 113/71 08/27/23 07:00 Pulse Ox 91 L 08/27/23 08:00 FiO2 Intake & Output 08/26/23 08/27/23 08/27/23 18:59 06:59 18:59 Intake Total 1200 460 20 Output Total 0 465 Balance 1200 -5 20 Intake: IV 240 260 20 Calcium Gluconate in NaCl 100 1 gm In Saline 1 100ml. bag @ 100 mls/hr IVPB ONCE ONE Rx#:[id number] Sodium Chloride 0.9% 1, 140 260 20 000 ml @ 20 mls/hr IV . Q24H [facility] Rx#:[id number] Oral 650 200 Blood Product 310 Rc As-1 Unit 310 [id number] Output: Drainage 115 CHEST TUBE RIGHT SIDE 115 Urine 0 350 Other: Voiding Method Toilet Toilet # Voids 0 0 ABP, PAP, CO, CI - Last Documented Arterial Blood Pressure 135/69 - Exam General appearance: The patient is alert, oriented, appears in no acute distress. HET: Head is normocephalic and atraumatic. Pupils are equal and reactive. Neck: Supple. Right IJ in place without any bleeding. Heart: Regular. Lungs: Equal expansion, normal respiratory effort. Chest: No chest wall deformity. Right-sided chest tube was removed. Abdomen: Soft, nondistended. Extremities: Normal skin color and turgor. Neurological: No focal deficits. Strength and sensation are grossly intact. - Labs CBC & Chem 7: 08/27/23 03:53 08/27/23 03:53 Labs: Abnormal Lab Results - Last 24 Hours (Table) 08/23/23 08/26/23 08/27/23 Range/Units 18:18 17:45 03:53 WBC 10.8 H (3.8-10.6) k/uL RBC 2.55 L 2.32 L (3.80-5.40) m/uL Hgb 7.5 L 7.1 L (11.4-16.0) gm/dL Hct 23.5 L 21.0 L (34.0-46.0) % Plt Count 114 L 134 L (150-450) k/uL Neutrophils # 9.4 H (1.3-7.7) k/uL Lymphocytes # 0.8 L (1.0-4.8) k/uL Sodium (137-145) mmol/L Carbon Dioxide (22-30) mmol/L BUN (7-17) mg/dL Creatinine (0.52-1.04) mg/dL Glucose (74-99) mg/dL Calcium (8.4-10.2) mg/dL Crossmatch See Detail 08/27/23 Range/Units 03:53 WBC (3.8-10.6) k/uL RBC (3.80-5.40) m/uL Hgb (11.4-16.0) gm/dL Hct (34.0-46.0) % Plt Count (150-450) k/uL Neutrophils # (1.3-7.7) k/uL Lymphocytes # (1.0-4.8) k/uL Sodium 128 L (137-145) mmol/L Carbon Dioxide 18 L (22-30) mmol/L BUN 59 H (7-17) mg/dL Creatinine 10.17 H* (0.52-1.04) mg/dL Glucose 116 H (74-99) mg/dL Calcium 5.5 L* (8.4-10.2) mg/dL Crossmatch Assessment and Plan Assessment: 1. End-stage renal disease on peritoneal dialysis now requiring hemodialysis 2. Malfunctioning hemodialysis catheter status post repositioning 3. Iatrogenic right-sided hemothorax following a right internal jugular permacath placement 4. Severe metabolic acidosis secondary to noncompliance with peritoneal dialysis 5. History of polycystic kidney disease 6. Morbid obesity, BMI 32.4 Plan: 1. Continue with hemodialysis per recommendations from nephrology 2. Continue with recommendations from cardiothoracic surgery 3. Rest of medical management per primary medical team Thank you for this consultation, we will sign off at this time. The impression and plan of care has been dictated as directed. Dr. Real I performed a history and examination of this patient, discussed the same with the dictator. I agree with the dictator's note ,documented as a scribe. Any additional findings or plans will be noted.
--- NOTE | 2023-08-27 12:36 | P.PN ---
Subjective Progress Note Date: 08/27/23 This is a 22-year-old female patient with a history of hypertension, chronic kidney disease, stage V, and had been on peritoneal dialysis however was quite noncompliant and had worsening lab values. She was initially at [facility] and was to have a permacath placed and to be initiated on h emodialysis however vascular surgery was not available. She was transferred here for the same. Earlier today a tunneled hemodialysis catheter was placed via the right internal jugular vein. Following the procedure she developed a hemothorax and a right-sided chest tube was placed. She was transferred to the intensive care unit for closer monitoring. Currently she is resting in bed. Awake and alert in no acute distress. There is approximately 500 mL of bloody return from her chest tube thus far. Patient is up to 100% on 2 L nasal cannula. She has been afebrile. Hemodynamically stable. Globin 8.7. Platelets 139. Sodium 142. Potassium 4.6. Bicarb 12. BUN 82. Creatinine 11.7. Glucose 131. hCG was negative. Her peritoneal dialysis will be completed and the plan is for 2 hours hemodialysis today. She was evaluated today on 08/24/2023, remains in the ICU, hemodynamically stable however the patient required 2 units of packed RBCs in the last 24 hours for drop in her hemoglobin. Patient had no more than 90 cc of blood into the Pleur- evac last night, and she had 450 initially after the chest tube was placed. In addition to the blood loss from the chest area, patient is also oozing around the hemodialysis catheter, and this was addressed by vascular surgery today, and a U-stitch was placed. Patient did receive dialysis yesterday, she is doing well at present, presently on room air, IV fluids at [facility]. Hemoglobin today is 6.6, she is to receive her second unit of packed RBCs today. Hemodialysis yesterday done and the patient had 800 cc of fluid removed. Catheter was apparently nonfunctional but that was already addressed by vascular surgery. There is no air leak noted in the chest tube today, hence the chest tube was placed on waterseal by thoracic surgery on the case. Patient has some pain over at the site of the chest tube placement, otherwise she is asymptomatic. The patient is seen today August 25, 2023 in follow-up in the intensive care unit. She is currently resting in bed. Awake and alert in no acute distress. She is maintaining O2 saturations in the 90s on 2 L/min per nasal cannula. White count 5.9. Hemoglobin 7.1. Platelets 107. Sodium 138. Potassium 4.1. Bicarb 18. BUN 62. Creatinine 10.75. Chest x-ray reveals right-sided chest tube in place with enlarging small to moderate right pneumothorax currently measuring 1.8 cm at the apex. Still with thin serosanguineous drainage in the Pleur-evac. The plan is for hemodialysis again today. She is status post 2 units of packed red blood cells this admission. The patient is seen today August 26, 2023 in follow-up in the intensive care unit. She is awake and alert in no acute distress. She is maintaining O2 saturations in the 90s on 4 L/min per nasal cannula. Cardiomegaly with hazy densities with some mild pulmonary vascular congestion. Right-sided chest tube remains in place. No appreciable pneumothorax. Yesterday she had undergone a right video- assisted thoracoscopy with washout and removal of her peritoneal dialysis catheter. She is scheduled for hemodialysis catheter change today. She has normal staying at [facility]. She is encouraged regarding the increased use of the incentive spirometer and cough and deep breathing exercises. White count 6.8. Hemoglobin 6.4. Platelets 111. INR 1.1. Sodium 133. Potassium 4.4. Bicarb 20. BUN 49. Creatinine 9.55. Glucose 159. The patient is seen today August 27, 2023 in follow-up on the in the intensive care unit. She is resting fairly comfortably in bed. Awake and alert in no acute distress. Maintaining O2 saturations in the 90s on 3 L/min per nasal cannula. Her right-sided chest tube was removed today. Her right subclavian hemodialysis catheter was adjusted yesterday and there is plans for hemodialysis today. Chest x-ray reveals trace right-sided pneumothorax. Mild cardiomegaly. She has received 3 units of packed red blood cells this admission. Current hemoglobin 7.1. Platelets 134. White count 10.8. Sodium 128. Potassium 4.4. Bicarb 18. BUN 59. Creatinine 10.1. Glucose 116. Objective - Vital Signs Vital signs: Vital Signs Temp 97.8 F 08/27/23 08:00 Pulse 91 08/27/23 12:00 Resp 16 08/27/23 12:00 BP 116/75 08/27/23 12:00 Pulse Ox 93 L 08/27/23 12:00 FiO2 Intake & Output 08/26/23 08/27/23 08/27/23 18:59 06:59 18:59 Intake Total 1200 460 60 Output Total 0 465 Balance 1200 -5 60 Intake: IV 240 260 60 Calcium Gluconate in NaCl 100 1 gm In Saline 1 100ml. bag @ 100 mls/hr IVPB ONCE ONE Rx#:[id number] Sodium Chloride 0.9% 1, 140 260 60 000 ml @ 20 mls/hr IV . Q24H [facility] Rx#:[id number] Oral 650 200 Blood Product 310 Rc As-1 Unit 310 [id number] Output: Drainage 115 CHEST TUBE RIGHT SIDE 115 Urine 0 350 Other: Voiding Method Toilet Toilet # Voids 0 0 ABP, PAP, CO, CI - Last Documented Arterial Blood Pressure 120/62 - Exam GENERAL EXAM: Alert, pleasant 22-year-old female, resting comfortably in bed, on 3 L nasal cannula, in no apparent distress. HEAD: Normocephalic. EYES: Normal reaction of pupils, equal size. NOSE: Clear with pink turbinates. THROAT: No erythema or exudates. NECK: No masses, no JVD. Right IJ permacath in place. Dressing dry. CHEST: No chest wall deformity. Right-sided chest tube removed. LUNGS: Equal air entry with scattered rhonchi over the right lung. CVS: S1 and S2 normal with no audible murmur, regular rhythm. ABDOMEN: Peritoneal catheter site post removal clean and dry. No hep atosplenomegaly, normal bowel sounds, no guarding or rigidity. SPINE: No scoliosis or deformity SKIN: No rashes CENTRAL NERVOUS SYSTEM: No focal deficits, tone is normal in all 4 extremities. EXTREMITIES: There is no peripheral edema. No clubbing, no cyanosis. Peripheral pulses are intact. - Labs CBC & Chem 7: 08/27/23 03:53 08/27/23 03:53 Labs: Abnormal Lab Results - Last 24 Hours (Table) 08/26/23 08/27/23 08/27/23 Range/Units 17:45 03:53 03:53 WBC 10.8 H (3.8-10.6) k/uL RBC 2.55 L 2.32 L (3.80-5.40) m/uL Hgb 7.5 L 7.1 L (11.4-16.0) gm/dL Hct 23.5 L 21.0 L (34.0-46.0) % Plt Count 114 L 134 L (150-450) k/uL Neutrophils # 9.4 H (1.3-7.7) k/uL Lymphocytes # 0.8 L (1.0-4.8) k/uL Sodium 128 L (137-145) mmol/L Carbon Dioxide 18 L (22-30) mmol/L BUN 59 H (7-17) mg/dL Creatinine 10.17 H* (0.52-1.04) mg/dL Glucose 116 H (74-99) mg/dL Calcium 5.5 L* (8.4-10.2) mg/dL Assessment and Plan Assessment: Acute on chronic kidney disease, stage V, noncompliant with peritoneal dialysis requiring conversion to hemodialysis. Iatrogenic right-sided hemo-pneumothorax following right internal jugular permacath placement. Status post VATS procedure, right-sided chest tube removed 08/27/2023, peritoneal catheter removed on 08/25/2023 Anemia secondary to above requiring 3 units of packed red blood cells, hemoglobin today 7.1 Severe metabolic acidosis secondary to noncompliance with peritoneal dialysis. 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 Number of minutes spent on the visit: 10.
[2023-08-27] MEDS ORDERED: ACETAMINOPHEN TAB 325 MG TAB PO PRN (13:52)
[2023-08-27] MEDS ORDERED: ACETAMINOPHEN TAB 500 MG TAB PO PRN (13:53)
--- NOTE | 2023-08-27 16:03 | XR ---
EXAMINATION TYPE: XR chest 1V portable DATE OF EXAM: 08/27/2023 COMPARISON: Earlier in the day HISTORY: Chest pain TECHNIQUE: Single frontal view of the chest is obtained. FINDINGS: Large bore right-sided central venous line unchanged in position. Much improved pulmonary vasculature since prior examination. Mild residual increased density right medial lung base may reflect atelecta sis or infiltrate. Small residual 2 mm right-sided pneumothorax again present. Left lung is clear. Ca rdiomediastinal silhouette is within normal cuts. IMPRESSION: 1. Much improved pulmonary vasculature since prior examination. Mild residual increased density righ t medial lung base may reflect atelectasis or infiltrate. 2. Small residual 2 mm right-sided pneumothorax again present.
[2023-08-28 06:24] LABS: Basophils % (A) 0 %; Eosinophils # (A) 0.1 k/uL (0-0.7); Eosinophils % (A) 2 %; HCT 23.3 % (34.0-46.0); HGB 7.5 gm/dL (11.4-16.0); Lymphocytes # (A) 1.6 k/uL (1.0-4.8); Lymphocytes % (A) 26 %; MCH 29.5 pg (25.0-35.0); MCHC 32.2 g/dL (31.0-37.0); MCV 91.8 fL (80.0-100.0); Mean Platelet Volume 8.3; Monocytes # (A) 0.4 k/uL (0-1.0); Monocytes % (A) 6 %; Neutrophils # (A) 4.2 k/uL (1.3-7.7); Neutrophils % (A) 65 %; Platelet Count 166 k/uL (150-450); RBC 2.54 m/uL (3.80-5.40); RDW 13.7 % (11.5-15.5); WBC 6.4 k/uL (3.8-10.6)
[2023-08-28 06:42] LABS: African American GFR (CKD) 13 (>60 ml/min/1.73 sqM); Anion Gap 4 mmol/L; Blood Urea Nitrogen 21 mg/dL (7-17); Carbon Dioxide 31 mmol/L (22-30); Chloride 103 mmol/L (98-107); Glucose 93 mg/dL (74-99); Non-African American GFR(CKD) 11 (>60 ml/min/1.73 sqM); Phosphorus 3.8 mg/dL (2.5-4.5); Potassium 3.6 mmol/L (3.5-5.1); Sodium 138 mmol/L (137-145)
--- NOTE | 2023-08-28 12:06 | P.PN ---
Subjective Progress Note Date: 08/28/23 This is a 22-year-old female patient with a history of hypertension, chronic kidney disease, stage V, and had been on peritoneal dialysis however was quite noncompliant and had worsening lab values. She was initially at [facility] and was to have a permacath placed and to be initiated on h emodialysis however vascular surgery was not available. She was transferred here for the same. Earlier today a tunneled hemodialysis catheter was placed via the right internal jugular vein. Following the procedure she developed a hemothorax and a right-sided chest tube was placed. She was transferred to the intensive care unit for closer monitoring. Currently she is resting in bed. Awake and alert in no acute distress. There is approximately 500 mL of bloody return from her chest tube thus far. Patient is up to 100% on 2 L nasal cannula. She has been afebrile. Hemodynamically stable. Globin 8.7. Platelets 139. Sodium 142. Potassium 4.6. Bicarb 12. BUN 82. Creatinine 11.7. Glucose 131. hCG was negative. Her peritoneal dialysis will be completed and the plan is for 2 hours hemodialysis today. She was evaluated today on 08/24/2023, remains in the ICU, hemodynamically stable however the patient required 2 units of packed RBCs in the last 24 hours for drop in her hemoglobin. Patient had no more than 90 cc of blood into the Pleur- evac last night, and she had 450 initially after the chest tube was placed. In addition to the blood loss from the chest area, patient is also oozing around the hemodialysis catheter, and this was addressed by vascular surgery today, and a U-stitch was placed. Patient did receive dialysis yesterday, she is doing well at present, presently on room air, IV fluids at [facility]. Hemoglobin today is 6.6, she is to receive her second unit of packed RBCs today. Hemodialysis yesterday done and the patient had 800 cc of fluid removed. Catheter was apparently nonfunctional but that was already addressed by vascular surgery. There is no air leak noted in the chest tube today, hence the chest tube was placed on waterseal by thoracic surgery on the case. Patient has some pain over at the site of the chest tube placement, otherwise she is asymptomatic. The patient is seen today August 25, 2023 in follow-up in the intensive care unit. She is currently resting in bed. Awake and alert in no acute distress. She is maintaining O2 saturations in the 90s on 2 L/min per nasal cannula. White count 5.9. Hemoglobin 7.1. Platelets 107. Sodium 138. Potassium 4.1. Bicarb 18. BUN 62. Creatinine 10.75. Chest x-ray reveals right-sided chest tube in place with enlarging small to moderate right pneumothorax currently measuring 1.8 cm at the apex. Still with thin serosanguineous drainage in the Pleur-evac. The plan is for hemodialysis again today. She is status post 2 units of packed red blood cells this admission. The patient is seen today August 26, 2023 in follow-up in the intensive care unit. She is awake and alert in no acute distress. She is maintaining O2 saturations in the 90s on 4 L/min per nasal cannula. Cardiomegaly with hazy densities with some mild pulmonary vascular congestion. Right-sided chest tube remains in place. No appreciable pneumothorax. Yesterday she had undergone a right video- assisted thoracoscopy with washout and removal of her peritoneal dialysis catheter. She is scheduled for hemodialysis catheter change today. She has normal staying at [facility]. She is encouraged regarding the increased use of the incentive spirometer and cough and deep breathing exercises. White count 6.8. Hemoglobin 6.4. Platelets 111. INR 1.1. Sodium 133. Potassium 4.4. Bicarb 20. BUN 49. Creatinine 9.55. Glucose 159. The patient is seen today August 27, 2023 in follow-up on the in the intensive care unit. She is resting fairly comfortably in bed. Awake and alert in no acute distress. Maintaining O2 saturations in the 90s on 3 L/min per nasal cannula. Her right-sided chest tube was removed today. Her right subclavian hemodialysis catheter was adjusted yesterday and there is plans for hemodialysis today. Chest x-ray reveals trace right-sided pneumothorax. Mild cardiomegaly. She has received 3 units of packed red blood cells this admission. Current hemoglobin 7.1. Platelets 134. White count 10.8. Sodium 128. Potassium 4.4. Bicarb 18. BUN 59. Creatinine 10.1. Glucose 116. The patient is seen today August 28, 2023 in follow-up on the regular medical floor. She is awake and alert in no acute distress. Resting comfortably in bed. Denies any worsening shortness of breath, cough or congestion. White count 6.4. Hemoglobin 7.5. Platelets 166. Sodium 138. Potassium 3.6. Bicarb 31. BUN 21. Creatinine 4.99. Chest x-ray reveals much improved pulmonary vascular congestion. Mild residual density in the right medial lung reflecting atelectasis. Small residual 2 mm right-sided pneumothorax present. She did undergo hemodialysis yesterday with 1 L of fluid removed. She is on Demadex. Continued on sodium bicarbonate tablets. Objective - Vital Signs Vital signs: Vital Signs Temp 99.8 F H 08/28/23 07:22 Pulse 94 08/28/23 11:39 Resp 16 08/28/23 07:22 BP 104/67 08/28/23 07:22 Pulse Ox 89 L 08/28/23 11:39 FiO2 100 08/27/23 15:50 Intake & Output 08/27/23 08/28/23 08/28/23 18:59 06:59 18:59 Intake Total 610 Output Total 1000 Balance -390 Intake: IV 110 Sodium Chloride 0.9% 1, 110 000 ml @ 20 mls/hr IV . Q24H [facility] Rx#:[id number] Hemodialysis 500 Output: Hemodialysis 1000 Other: Voiding Method Toilet Toilet Toilet # Voids 0 ABP, PAP, CO, CI - Last Documented Arterial Blood Pressure 139/65 - Exam GENERAL EXAM: Alert, 22-year-old female, resting in bed, on 3 L nasal cannula, in no apparent distress. HEAD: Normocephalic. EYES: Normal reaction of pupils, equal size. NOSE: Clear with pink turbinates. THROAT: No erythema or exudates. NECK: No masses, no JVD. Right IJ permacath in place. Dressing dry. CHEST: No chest wall deformity. Right-sided chest tube removed. LUNGS: Equal air entry with scattered rhonchi over the right lung. CVS: S1 and S2 normal with no audible murmur, regular rhythm. ABDOMEN: Peritoneal catheter site post removal clean and dry. No he patosplenomegaly, normal bowel sounds, no guarding or rigidity. SPINE: No scoliosis or deformity SKIN: No rashes CENTRAL NERVOUS SYSTEM: No focal deficits, tone is normal in all 4 extremities. EXTREMITIES: There is no peripheral edema. No clubbing, no cyanosis. Peripheral pulses are intact. - Labs CBC & Chem 7: 07/18/24 06:02 08/28/23 06:02 Labs: Abnormal Lab Results - Last 24 Hours (Table) 08/28/23 08/28/23 Range/Units 06:02 06:02 RBC 2.54 L (3.80-5.40) m/uL Hgb 7.5 L (11.4-16.0) gm/dL Hct 23.3 L (34.0-46.0) % Carbon Dioxide 31 H (22-30) mmol/L BUN 21 H (7-17) mg/dL Creatinine 4.99 H (0.52-1.04) mg/dL Calcium 7.0 L (8.4-10.2) mg/dL Assessment and Plan Assessment: Acute on chronic kidney disease, stage V, noncompliant with peritoneal dialysis requiring conversion to hemodialysis. Iatrogenic right-sided hemo-pneumothorax following right internal jugular permacath placement. Status post VATS procedure, right-sided chest tube removed 08/27/2023, peritoneal catheter removed on 08/25/2023 Anemia secondary to above requiring 3 units of packed red blood cells, hemoglobin today 7.5 Severe metabolic acidosis secondary to noncompliance with peritoneal dialysis. 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 Number of minutes spent on the visit: 24.
--- NOTE | 2023-08-28 12:16 | P.PN ---
Subjective Patient is seen in follow-up for end-stage renal disease. Patient was maintained on peritoneal dialysis but was not doing her treatments outpatient. Permacath was placed August 23, 2023 and was repositioned August 26, 2023. PD catheter has been removed. Chest tube also removed. No active complaints. Vital signs are stable. General: No acute distress. HEENT: Head exam is unremarkable. LUNGS: Chest tube noted. HEART: Rate and Rhythm are regular. ABDOMEN: Nontender. EXTREMITITES: No edema. Objective - Vital Signs Vital signs: Vital Signs Temp 99.8 F H 08/28/23 07:22 Pulse 94 08/28/23 11:39 Resp 16 08/28/23 07:22 BP 104/67 08/28/23 07:22 Pulse Ox 89 L 08/28/23 11:39 FiO2 100 08/27/23 15:50 Intake & Output 08/27/23 08/28/23 08/28/23 18:59 06:59 18:59 Intake Total 610 Output Total 1000 Balance -390 Intake: IV 110 Sodium Chloride 0.9% 1, 110 000 ml @ 20 mls/hr IV . Q24H [facility] Rx#:[id number] Hemodialysis 500 Output: Hemodialysis 1000 Other: Voiding Method Toilet Toilet Toilet # Voids 0 ABP, PAP, CO, CI - Last Documented Arterial Blood Pressure 139/65 - Labs CBC & Chem 7: 08/28/23 06:02 08/28/23 06:02 Labs: Abnormal Lab Results - Last 24 Hours (Table) 08/28/23 08/28/23 Range/Units 06:02 06:02 RBC 2.54 L (3.80-5.40) m/uL Hgb 7.5 L (11.4-16.0) gm/dL Hct 23.3 L (34.0-46.0) % Carbon Dioxide 31 H (22-30) mmol/L BUN 21 H (7-17) mg/dL Creatinine 4.99 H (0.52-1.04) mg/dL Calcium 7.0 L (8.4-10.2) mg/dL Assessment and Plan Plan: Assessment: 1. End-stage renal disease maintained on peritoneal dialysis - now transitioned to hemodialysis due to noncompliance. PD catheter removed. 2. Status post permacath placement with subsequent right-sided hemothorax. Chest tube removed. Being followed by cardiothoracic surgery. 3. Alport syndrome. 4. Metabolic acidosis secondary to chronic kidney disease and noncompliance with dialysis treatments. Improved postdialysis. 5. Chronic kidney disease mineral bone disease. On PhosLo and calcitriol. Status post IV calcium. Phosphorus level 3.8 and calcium level improved to 7.0 dated August 28, 2023. PTH 1039. 6. Anemia of chronic kidney disease. Also component of acute blood loss. Status post blood transfusions. Received DDAVP as well. Also on Aranesp. 7. Hypertension with chronic kidney disease. Controlled. Plan: Hemodialysis tomorrow. Patient will be maintained on Friday schedule. Stop bicarb. Maintain torsemide. Again stressed compliance with medications and dialysis treatments outpatient. Life-threatening complications, including , have been discussed with the patient multiple times.
[2023-08-28 14:00] VITALS: BMI 32.3
--- NOTE | 2023-08-29 07:45 | P.DS ---
Providers Date of admission: 08/21/23 20:16 Expected date of discharge: 08/29/23 Attending physician: Hubert Keyes MD Consults: 08/22/23 06:24 Consult Physician Urgent Consulting Provider: Liss Leavitt Consult Reason/Comments: Renal Failure, hemodialysis Do you want consulting provider notified?: Yes Placement Type Exists?: Yes 08/23/23 09:54 Consult Physician Urgent Consulting Provider: Markos Dacosta Consult Reason/Comments: hemothrax Do you want consulting provider notified?: Already Contacted Primary care physician: Hubert Keyes MD [facility] Course: This is a pleasant 22-year-old female with past medical history significant for polycystic kidney disease, requiring dialysis a couple years ago. Reports prior hemodialysis via tunneled catheters with last one removed in early July 2023. Patient was initially admitted to [facility], for tunneled catheter placement secondary to worsening renal function. Vascular surgery services were not available at that site and patient was transferred over to [facility]. Reports last peritoneal dialysis was completed yesterday evening. Nephrology and vascular surgery consults in place. Denies chest pain, palpitations or shortness of breath. Denies lightheadedness, dizziness or focal deficits. Denies headache. Denies nausea vomiting. Patient has no complaints. Vital signs stable, maintaining O2 sats of 100% on room air. 08/25/2023 right-sided hemo-pneumothorax status post right internal jugular permacath placement, right-sided chest tube placed ,required transfer into the ICU on 08/23/2023 received a unit of packed RBCs yesterday for hemoglobin of 6.6, currently 7.1. Pleuravac with serosanguineous drainage. chest x-ray reporting right-sided chest tube in place with enlarging small to moderate right pneumothorax currently measuring 1.8 cm at the apex. CTS consulted for VATS.maintaining O2 sats in the 90s on 2 L nasal cannula. 08/26/2023 dysfunctional tunneled dialysis catheter-clotting, repositioning scheduled for this afternoon with vascular surgery. PD catheter removed yesterday. Right VATS completed yesterday per CTS. afebrile, WBC within normal limits. Hemoglobin 6.4, received 1 unit packed RBCs. Platelets 111. Denies chest pain, palpitations or shortness of breath. Maintaining O2 sats in the 90s on 4 L nasal cannula. 08/27/2023 chest x-ray reported trace right-sided pneumothorax noted measuring 2 mm .right pleural chest tube to waterseal with no air leak this morning, recently discontinued by CTS. maintaining O2 sats in the 90s on 3 L nasal cannula. Telemetry sinus rhythm. Right IJ tunneled hemodialysis catheter repositioned yesterday under fluoroscopy, tolerated procedure well. Scheduled for hemodialysis today. Hemoglobin 7.1, platelets 134, sodium 128. 08/28/2023. Pt doing better on med/surg floor today, she remains on 3 LPM supplemental O2. Renal function is stablized. 08/29/2023. On day of discharge pt doing well, scheduled for MWF HD and recommend close follow up with Nephrology. She is discharged in stable condition Plan - Discharge Summary Discharge Rx Participant: No New Discharge Prescriptions: New amLODIPine [Norvasc] 10 mg PO DAILY #30 tab Darbepoetin Neal [Aranesp] 40 mcg SQ Q7D each Continue Torsemide [Demadex] 20 mg PO DAILY Labetalol [Trandate] 200 mg PO BID Medroxyprogesterone Acetate [Depo-Provera] 150 mg IM Q90D calcitrioL 0.5 mcg PO DAILY Calcium Acetate 667 mg PO TID-W/MEALS Calcium Acetate [PhosLo] 667 mg PO DAILY PRN PRN Reason: w/snacks Sodium Bicarbonate Tab 650 mg PO QID Discontinued amLODIPine [Norvasc] 10 mg PO DAILY Discharge Medication List Labetalol [Trandate] 200 mg PO BID 11/08/22 [History] Medroxyprogesterone Acetate [Depo-Provera] 150 mg IM Q90D 11/08/22 [History] Torsemide [Demadex] 20 mg PO DAILY 11/08/22 [History] Calcium Acetate 667 mg PO TID-W/MEALS 08/21/23 [History] Calcium Acetate [PhosLo] 667 mg PO DAILY PRN 08/21/23 [History] Sodium Bicarbonate Tab 650 mg PO QID 08/21/23 [History] calcitrioL 0.5 mcg PO DAILY 08/21/23 [History] Darbepoetin Neal [Aranesp] 40 mcg SQ Q7D each 08/29/23 [Rx] amLODIPine [Norvasc] 10 mg PO DAILY #30 tab 08/29/23 [Rx] Follow up Appointment(s)/Referral(s): Liss Leavitt MD [STAFF PHYSICIAN] - As Needed Jose Manuel Guzman DO [STAFF PHYSICIAN] - 4 Weeks Robert Crump MD [STAFF PHYSICIAN] - 1 Week (Please call for follow-up appointment upon discharge from hospital, may see Matilde or Ministerio in the office for incision check) Activity/Diet/Wound Care/Special Instructions: DISCHARGE INSTRUCTIONS: 1. No driving for 2 weeks, or until physician gives their ok. 2. No lifting, pushing, or pulling more than 10 pounds for 2 weeks. The physician will advise of any restriction changes. 3. Continue pain control per as needed orders. Alternate acetaminophen (Tylenol) and ibuprofen (Motrin/Advil) for pain. 4. Continue with incentive spirometry and splinting until otherwise directed by the physician. 5. Leave chest tube dressing for 48 hours. After that, remove all dressings and shower daily. 6. Routine incision care. No powders, lotions, ointments on incisions. 7. Please call surgeon/[employer]ER for temp greater than 101 F or purulent drainage from incisions. Pt chair time for dialysis is MWF thrid shift - pt is asked to show of at [facility] office tomorrow at 4:15pm Discharge Disposition: HOME SELF-CARE
--- NOTE | 2023-08-29 11:39 | P.PN ---
Subjective Patient is seen in follow-up for end-stage renal disease. Patient was maintained on peritoneal dialysis but was not doing her treatments outpatient. Permacath was placed August 23, 2023 and was repositioned August 26, 2023. PD catheter has been removed. Chest tube also removed. No active complaints. tolerating dialysis well. Vital signs are stable. General: No acute distress. HEENT: Head exam is unremarkable. LUNGS: Chest tube noted. HEART: Rate and Rhythm are regular. ABDOMEN: Nontender. EXTREMITITES: No edema. Objective - Vital Signs Vital signs: Vital Signs Temp 98.8 F 08/29/23 07:19 Pulse 85 08/29/23 07:19 Resp 16 08/29/23 07:19 BP 105/67 08/29/23 07:19 Pulse Ox 97 08/29/23 11:01 FiO2 100 08/27/23 15:50 Intake & Output 08/28/23 08/29/23 08/29/23 18:59 06:59 18:59 Weight 72.7 kg Other: Voiding Method Toilet Toilet # Voids 2 ABP, PAP, CO, CI - Last Documented Arterial Blood Pressure 139/65 - Labs CBC & Chem 7: 08/28/23 06:02 08/28/23 06:02 Assessment and Plan Plan: Assessment: 1. End-stage renal disease maintained on peritoneal dialysis - now transitioned to hemodialysis due to noncompliance. PD catheter removed. 2. Status post permacath placement with subsequent right-sided hemothorax. Chest tube removed. Being followed by cardiothoracic surgery. 3. Alport syndrome. 4. Metabolic acidosis secondary to chronic kidney disease and noncompliance with dialysis treatments. Improved postdialysis. 5. Chronic kidney disease mineral bone disease. On PhosLo and calcitriol. Status post IV calcium. Phosphorus level 3.8 and calcium level improved to 7.0 dated August 28, 2023. PTH 1039. 6. Anemia of chronic kidney disease. Also component of acute blood loss. Status post blood transfusions. Received DDAVP as well. Also on Aranesp. 7. Hypertension with chronic kidney disease. Controlled. Plan: currently seen while undergoing hemodialysis. Patient will be maintained on Friday schedule. bicarb discontinued. Maintain torsemide. Again stressed compliance with medications and dialysis treatments outpatient. Life-threatening complications, including , have been discussed with the patient multiple times. Potential discharge after dialysis today.
--- NOTE | 2023-08-29 13:14 | P.PN ---
Subjective Progress Note Date: 08/29/23 This is a 22-year-old female patient with a history of hypertension, chronic kidney disease, stage V, and had been on peritoneal dialysis however was quite noncompliant and had worsening lab values. She was initially at [facility] and was to have a permacath placed and to be initiated on h emodialysis however vascular surgery was not available. She was transferred here for the same. Earlier today a tunneled hemodialysis catheter was placed via the right internal jugular vein. Following the procedure she developed a hemothorax and a right-sided chest tube was placed. She was transferred to the intensive care unit for closer monitoring. Currently she is resting in bed. Awake and alert in no acute distress. There is approximately 500 mL of bloody return from her chest tube thus far. Patient is up to 100% on 2 L nasal cannula. She has been afebrile. Hemodynamically stable. Globin 8.7. Platelets 139. Sodium 142. Potassium 4.6. Bicarb 12. BUN 82. Creatinine 11.7. Glucose 131. hCG was negative. Her peritoneal dialysis will be completed and the plan is for 2 hours hemodialysis today. She was evaluated today on 08/24/2023, remains in the ICU, hemodynamically stable however the patient required 2 units of packed RBCs in the last 24 hours for drop in her hemoglobin. Patient had no more than 90 cc of blood into the Pleur- evac last night, and she had 450 initially after the chest tube was placed. In addition to the blood loss from the chest area, patient is also oozing around the hemodialysis catheter, and this was addressed by vascular surgery today, and a U-stitch was placed. Patient did receive dialysis yesterday, she is doing well at present, presently on room air, IV fluids at [facility]. Hemoglobin today is 6.6, she is to receive her second unit of packed RBCs today. Hemodialysis yesterday done and the patient had 800 cc of fluid removed. Catheter was apparently nonfunctional but that was already addressed by vascular surgery. There is no air leak noted in the chest tube today, hence the chest tube was placed on waterseal by thoracic surgery on the case. Patient has some pain over at the site of the chest tube placement, otherwise she is asymptomatic. The patient is seen today August 25, 2023 in follow-up in the intensive care unit. She is currently resting in bed. Awake and alert in no acute distress. She is maintaining O2 saturations in the 90s on 2 L/min per nasal cannula. White count 5.9. Hemoglobin 7.1. Platelets 107. Sodium 138. Potassium 4.1. Bicarb 18. BUN 62. Creatinine 10.75. Chest x-ray reveals right-sided chest tube in place with enlarging small to moderate right pneumothorax currently measuring 1.8 cm at the apex. Still with thin serosanguineous drainage in the Pleur-evac. The plan is for hemodialysis again today. She is status post 2 units of packed red blood cells this admission. The patient is seen today August 26, 2023 in follow-up in the intensive care unit. She is awake and alert in no acute distress. She is maintaining O2 saturations in the 90s on 4 L/min per nasal cannula. Cardiomegaly with hazy densities with some mild pulmonary vascular congestion. Right-sided chest tube remains in place. No appreciable pneumothorax. Yesterday she had undergone a right video- assisted thoracoscopy with washout and removal of her peritoneal dialysis catheter. She is scheduled for hemodialysis catheter change today. She has normal staying at [facility]. She is encouraged regarding the increased use of the incentive spirometer and cough and deep breathing exercises. White count 6.8. Hemoglobin 6.4. Platelets 111. INR 1.1. Sodium 133. Potassium 4.4. Bicarb 20. BUN 49. Creatinine 9.55. Glucose 159. The patient is seen today August 27, 2023 in follow-up on the in the intensive care unit. She is resting fairly comfortably in bed. Awake and alert in no acute distress. Maintaining O2 saturations in the 90s on 3 L/min per nasal cannula. Her right-sided chest tube was removed today. Her right subclavian hemodialysis catheter was adjusted yesterday and there is plans for hemodialysis today. Chest x-ray reveals trace right-sided pneumothorax. Mild cardiomegaly. She has received 3 units of packed red blood cells this admission. Current hemoglobin 7.1. Platelets 134. White count 10.8. Sodium 128. Potassium 4.4. Bicarb 18. BUN 59. Creatinine 10.1. Glucose 116. The patient is seen today August 28, 2023 in follow-up on the regular medical floor. She is awake and alert in no acute distress. Resting comfortably in bed. Denies any worsening shortness of breath, cough or congestion. White count 6.4. Hemoglobin 7.5. Platelets 166. Sodium 138. Potassium 3.6. Bicarb 31. BUN 21. Creatinine 4.99. Chest x-ray reveals much improved pulmonary vascular congestion. Mild residual density in the right medial lung reflecting atelectasis. Small residual 2 mm right-sided pneumothorax present. She did undergo hemodialysis yesterday with 1 L of fluid removed. She is on Demadex. Continued on sodium bicarbonate tablets. The patient is seen today 08/29/2019 for follow-up on the regular medical floor. She is resting comfortably in bed. Awake and alert in no acute distress. He remains on oral diuretics. Maintaining good O2 saturations in the 90s on room a ir. No new labs today. receiving hemodialysis today. Plan is for Friday schedule. Objective - Vital Signs Vital signs: Vital Signs Temp 98.8 F 08/29/23 07:19 Pulse 89 08/29/23 08:00 Resp 16 08/29/23 07:19 BP 105/67 08/29/23 07:19 Pulse Ox 97 08/29/23 11:01 FiO2 100 08/27/23 15:50 Intake & Output 08/28/23 08/29/23 08/29/23 18:59 06:59 18:59 Weight 72.7 kg Other: Voiding Method Toilet Toilet Toilet # Voids 2 ABP, PAP, CO, CI - Last Documented Arterial Blood Pressure 139/65 - Exam GENERAL EXAM: Alert, pleasant 22-year-old female, resting in bed, on room air, in no apparent distress. HEAD: Normocephalic. EYES: Normal reaction of pupils, equal size. NOSE: Clear with pink turbinates. THROAT: No erythema or exudates. NECK: No masses, no JVD. Right IJ permacath in place. Dressing dry. CHEST: No chest wall deformity. Right-sided chest tube removed. LUNGS: Equal air entry with scattered rhonchi over the right lung. CVS: S1 and S2 normal with no audible murmur, regular rhythm. ABDOMEN: Peritoneal catheter site post removal clean and dry. No hepatosplenomegaly, normal bowel sounds, no guarding or rigidity. SPINE: No scoliosis or deformity SKIN: No rashes CENTRAL NERVOUS SYSTEM: No focal deficits, tone is normal in all 4 extremities. EXTREMITIES: There is no peripheral edema. No clubbing, no cyanosis. Peripheral pulses are intact. - Labs CBC & Chem 7: 08/28/23 06:02 08/28/23 06:02 Assessment and Plan Assessment: Acute on chronic kidney disease, stage V, noncompliant with peritoneal dialysis requiring conversion to hemodialysis. Iatrogenic right-sided hemo-pneumothorax following right internal jugular permacath placement. Status post VATS procedure, right-sided chest tube removed 08/27/2023, peritoneal catheter removed on 08/25/2023 Anemia secondary to above requiring 3 units of packed red blood cells, hemoglobin today 7.5 Severe metabolic acidosis secondary to noncompliance with peritoneal dialysis. Received hemodialysis 08/27/2023. 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 Number of minutes spent on the visit: 22.
[2023-08-29 13:37] VITALS: BP 135/83; PULSE 94; RESP 18; TEMP 99
== END 2023-08-29 14:30 | disposition home or self-care (01) | DRG 444 ==
LOC: 6NMEDSUR 20:16 → 2SICU 08-23 10:21 → 5NMEDONC 08-27 23:54
PROVIDERS: ADMIT Family Medicine; ATTEND Family Medicine
PROC: 3E1M39Z Irrigation of Peritoneal Cavity using Dialysate, Percutaneous Approach (ICD-10-PCS; 2023-08-22)
PROC: 5A1D70Z Performance of Urinary Filtration, Intermittent, Less than 6 Hours Per Day (ICD-10-PCS; 2023-08-23)
PROC: 0W9930Z Drainage of Right Pleural Cavity with Drainage Device, Percutaneous Approach (ICD-10-PCS; 2023-08-23)
PROC: 30233N1 Transfusion of Nonautologous Red Blood Cells into Peripheral Vein, Percutaneous Approach (ICD-10-PCS; 2023-08-23 08:00)
PROC: 0JH63XZ Insertion of Tunneled Vascular Access Device into Chest Subcutaneous Tissue and Fascia, Percutaneous Approach (ICD-10-PCS; 2023-08-23 08:00)
PROC: 06H033Z Insertion of Infusion Device into Inferior Vena Cava, Percutaneous Approach (ICD-10-PCS; 2023-08-23 08:00)
PROC: 0BCF4ZZ Extirpation of Matter from Right Lower Lung Lobe, Percutaneous Endoscopic Approach (ICD-10-PCS; 2023-08-25)
PROC: 0BJ08ZZ Inspection of Tracheobronchial Tree, Via Natural or Artificial Opening Endoscopic (ICD-10-PCS; 2023-08-25)
PROC: 0WP930Z Removal of Drainage Device from Right Pleural Cavity, Percutaneous Approach (ICD-10-PCS; 2023-08-25)
PROC: 0WPG03Z Removal of Infusion Device from Peritoneal Cavity, Open Approach (ICD-10-PCS; principal; 2023-08-25 14:55)
PROC: 02W Heart and Great Vessels, Revision (ICD-10-PCS; 2023-08-26)
DX: I13.11 Hypertensive heart and chronic kidney disease without heart failure, with stage 5 chronic kidney disease, or end stage renal disease (principal); J94.2 Hemothorax; N17.9 Acute kidney failure, unspecified; E87.20 Acidosis, unspecified; D63.1 Anemia in chronic kidney disease; E83.9 Disorder of mineral metabolism, unspecified; E83.39 Other disorders of phosphorus metabolism; D62 Acute posthemorrhagic anemia; N18.6 End stage renal disease; Q61.3 Polycystic kidney, unspecified; E66.01 Morbid (severe) obesity due to excess calories; Z99.2 Dependence on renal dialysis; Z91.158 Patient's noncompliance with renal dialysis for other reason; Z68.32 Body mass index [BMI] 32.0-32.9, adult; T82.838A Hemorrhage due to vascular prosthetic devices, implants and grafts, initial encounter; Z28.310 Unvaccinated for COVID-19; Q87.81 Alport syndrome; J98.11 Atelectasis; Z91.199 Patient's noncompliance with other medical treatment and regimen due to unspecified reason; Z79.899 Other long term (current) drug therapy; Z71.3 Dietary counseling and surveillance; Y71.2 Prosthetic and other implants, materials and accessory cardiovascular devices associated with adverse incidents; Y92.234 Operating room of hospital as the place of occurrence of the external cause
CPT/HCPCS: 32557; 36558; 36597; 71045; 71250; 76937; 77001; 80048; 83735; 83970; 84100; 84703; 85025; 85027; 85384; 85610; 85730; 86706; 86850; 86900; 86901; 86920; 87340; 90935

== ENCOUNTER 2024-06-08 06:02 | Day surgery (SDC) | payer OTHER ==
[2024-06-08] MEDS ORDERED: LIDOCAINE 1% (10MG/ML) FOR IV START INTRADERMA PRN (06:03)
[2024-06-08] MEDS ORDERED: LACTATED RINGERS 1,000 ML IV SCH (06:03)
[2024-06-08] MEDS: SODIUM CHLORIDE 0.9% 500 ML 500 ML IV ONE (06:44)
[2024-06-08] MEDS: IV FLUID CONTINUATION 1,000 ML IV ONE (06:44)
[2024-06-08] MEDS ORDERED: fentaNYL (PF) 50 MCG/ML 2 ML AMP IVP PRN (07:00)
[2024-06-08] MEDS ORDERED: HYDROmorphone 0.5 MG/0.5 ML SYRINGE IVP PRN (07:00)
[2024-06-08] MEDS: ONDANSETRON 4 MG/2 ML VIAL IVP ONE (07:02)
[2024-06-08] MEDS: DEXAMETHASONE SOD PHOSPHATE 4 MG/ML 1 ML VIAL IV ONE (07:02)
[2024-06-08 07:24] LABS: Potassium 5.2 mmol/L (3.5-5.1)
[2024-06-08 07:26] LABS: HCG,Qualitative Serum Not Detected
[2024-06-08] MEDS: MIDAZOLAM 2 MG/2 ML VIAL IV PRN (07:27)
[2024-06-08] MEDS ORDERED: ROPIVACAINE 5 MG/ML 30 ML VIAL ONE (07:35)
[2024-06-08] MEDS ORDERED: PROPOFOL 10 MG/ML 20 ML VIAL IV ONE (07:35)
[2024-06-08] MEDS ORDERED: DEXAMETHASONE SOD PHOSPHATE 4 MG/ML 1 ML VIAL ONE (07:35)
[2024-06-08] MEDS ORDERED: MIDAZOLAM 2 MG/2 ML VIAL ONE (07:35)
[2024-06-08] MEDS ORDERED: ePHEDrine 50 MG/ML 1 ML VIAL ONE (07:35)
[2024-06-08] MEDS ORDERED: PHENYLEPHRINE 10 MG/ML VIAL ONE (07:35)
[2024-06-08] MEDS ORDERED: HEPARIN SODIUM,PORCINE 5,000 UNIT/ML 1 ML VIAL ONE (07:35)
[2024-06-08] MEDS: ceFAZolin 2 GM in DEXTROSE 5% IN WATER 50 ML IVPB PRN (07:40)
[2024-06-08] MEDS: LIDOCAINE 1% INJ 10MG/ML (20 ML MDV) SQ ONE ×2 (07:59)
[2024-06-08] MEDS: THROMBIN (BOVINE) 5,000 UNIT VIAL TOPICAL ONE (08:00)
[2024-06-08] MEDS: ceFAZolin 2 GM in SODIUM CHLORIDE 0.9% 500 ML 500 ML IRRIGATION ONE (08:01)
[2024-06-08] MEDS: HEPARIN SODIUM,PORCINE (1 ML) 2,000 UNIT in SODIUM CHLORIDE 0.9% 500 ML 500 ML IRRIGATION ONE (08:01)
--- NOTE | 2024-06-08 08:58 | P.OP ---
Date of Procedure: 06/08/24 Preoperative Diagnosis: End-stage renal disease Postoperative Diagnosis: Same Procedure(s) Performed: Right upper extremity radiocephalic fistula creation Anesthesia: BAKARI, [facility] Surgeon: Jose Manuel Guzman Estimated Blood Loss (ml): 5 Pathology: none sent Condition: stable Disposition: PACU Indications for Procedure: 23-year-old female with history of end-stage renal disease presents to the hospital for creation of right upper extremity arteriovenous fistula. She did have vein mapping which demonstrated borderline cephalic vein at the wrist but after long discussion with her and her father they would like to attempt the radiocephalic fistula prior to any loop graft or above elbow fistula creation. She presents today for such procedure. Description of Procedure: After written and informed consent was obtained from the patient the patient was brought to the operative suite and laid in a supine position. The right arm was prepped and draped in the usual sterile fashion after appropriate anesthesia was performed per the anesthesiologist. Utilizing ultrasound the cephalic vein was visualized and marked and shown to be good size. A small vertical incision was then created with a 15 blade scalpel just proximal to the wrist and dissection was carried down to the radial artery which was dissected free in a circumferential manner. Proximal distal control was then obtained with vessel loops. Attention was then placed back to the cephalic vein which was located and dissected free in a circumferential manner distally to the wrist. At the wrist it was ligated with silk suture. Further dissection was carried around the vein and the vein was brought over to the radial artery. Serial dilation was then performed on the vein and good backbleeding was noted. Patient was administered 3000 units of heparin and the radial artery was clamped at the proximal and distal aspect. Utilizing 11 blade scalpel and arteriotomy was created and extended with Pott Chung scissors. There was good brisk backbleeding noted from the radial artery and pulsatile blood flow visualized from the proximal aspect. The vein was then spatulated and an end-to-side anastomosis was created with a 7-0 Prolene suture. Prior to last sutures being placed the control was released from the vein revealing good backbleeding and distal control on the radial artery was released revealing good back flow. The proximal control was then released and good pulsatile blood flow was visualized in the fistula and final sutures were secured. The area was copiously irrigated with antibiotic solution. Hemostasis was assured. The vessels were then interrogated with Doppler which demonstrated good multiphasic signal distal to the anastomosis as well as positive bruit within the vein consistent with good fistula creation. Under ultrasound there was pulsatile flow noted in the cephalic vein. The incision was then closed in a multilayer fashion. The skin was cleansed and dressings were placed. Patient does procedure well and was sent to PACU for recovery.
--- NOTE | 2024-06-08 09:04 | P.ANPRN ---
Procedure Note - Anesthesia - Nerve Block Performed Right Supraclavicular Single Date of Procedure: 06/08/24 Procedure Start Time: : Procedure Stop Time: :34 Indication: Acute Post-Operative Pain, Requested by Surgeon Sedation Type: Sedate with meaningful contact maintained Preparation: Sterile Prep Position: Supine Catheter: None Needle Types: Pajunk Needle Gauge: 21 Ultrasound used to visualize needle placement: Yes Ultrasound used to observe medication spread: Yes Injectate: 0.5% Ropivacaine (see comment for volume) (20 mls with 4 mgs of Decadron) Blood Aspirated: No Pain Paresthesia on Injection Noted: No Resistance on Injection: Normal Image Stored and Saved: Yes Events: Uneventful and Well Tolerated
[2024-06-08 09:19] VITALS: TEMP 97.1
[2024-06-08 10:13] VITALS: BP 112/71; PULSE 81; RESP 16
== END 2024-06-08 10:49 | disposition home or self-care (01) ==
LOC: OR 06:02
PROVIDERS: ATTEND Surgery
DX: N18.6 End stage renal disease (principal); I10 Essential (primary) hypertension; K21.9 Gastro-esophageal reflux disease without esophagitis; Z79.899 Other long term (current) drug therapy
CPT/HCPCS: 64415; 84132; 84703; 36821; J2250; J1644; J1100; J0690; J2405; J2003; J2795; J2704; J2371

== ENCOUNTER 2024-06-25 10:39 | Day surgery (SDC) | payer OTHER ==
[2024-06-25 11:39] VITALS: RESP 16; TEMP 98.2
[2024-06-25] MEDS: LIDOCAINE 1% INJ 10MG/ML (20 ML MDV) SQ ONE (11:42)
[2024-06-25] MEDS: MIDAZOLAM 2 MG/2 ML VIAL IVP ONE (11:42)
[2024-06-25] MEDS: fentaNYL (PF) 50 MCG/1 ML VIAL IVP ONE (11:42)
[2024-06-25] MEDS: SODIUM CHLORIDE 0.9% 500 ML 500 ML IV ONE (11:53)
[2024-06-25] MEDS: ceFAZolin 2 GM in DEXTROSE 5% IN WATER 50 ML IVPB ONE (12:01)
[2024-06-25] MEDS: HEPARIN SODIUM 1,000 UN/ML (10ML VL) IV ONE (12:01)
--- NOTE | 2024-06-25 12:25 | P.OP ---
Date of Procedure: 06/25/24 Preoperative Diagnosis: Malfunctioning right tunneled hemodialysis catheter End-stage renal disease History of right upper extremity arteriovenous fistula creation Postoperative Diagnosis: Same Procedure(s) Performed: Ultrasound internal jugular vein access Tunneled hemodialysis catheter placement via the left internal jugular vein Removal of right tunneled hemodialysis catheter Conscious sedation x 35 minutes Anesthesia: local Surgeon: Jose Manuel Guzman Pathology: none sent Condition: stable Disposition: PACU Indications for Procedure: 23-year-old female with history of end-stage renal disease on hemodialysis via right-sided tunneled hemodialysis catheter presented to the office secondary to worsening flows from her right sided catheter which has been replaced multiple times. She recently had right upper extremity arteriovenous fistula and therefore we discussed changing her tunneled hemodialysis catheter to the left side to allow for better outflow for the fistula as well as replace the catheter. She presents today for procedure. Description of Procedure: After written and informed consent was obtained and all risks, benefits and complications were described the patient was brought to the [facility] and laid in a supine position. The area of the bilateral neck and chest was prepped and draped in the usual sterile fashion. Timeout was performed in normal fashion and antibiotics were administered prior to access. Utilizing ultrasound the left internal jugular vein was visualized and shown to be patent without any thrombus. Under ultrasound guidance the vein was then cannulated with dark nonpulsatile blood flow visualized. Guidewire was placed under direct visualization of fluoroscopy into the superior vena cava. Attention was then placed to the chest wall. A small incision was created on the lateral aspect of the chest wall as well as the access site at the neck. A 23 centimeter palindrome hemodialysis catheter was then tunneled from the chest wall to the neck. Serial dilation was then performed and breakaway sheath was placed into the internal jugular vein under direct visualization of fluoroscopy. The catheter was then placed within the break away sheath the sheath was removed. The ports were assessed for patency and thee and flushed easily and then were hep-locked. The catheter was then sutured in place, cleansed and dressings were placed. Attention was then placed to the right tunneled hemodialysis catheter. Local anesthetic was infused overlying the cuff and dissection was carried around in circumferential manner and the catheter was removed. Pressure was then held for hemostasis. The patient tolerated procedure well.
[2024-06-25] MEDS: ACETAMINOPHEN TAB 500 MG TAB PO STA (12:40)
--- NOTE | 2024-06-25 12:52 | IR ---
EXAMINATION TYPE: IR cvc insert central tunneled DATE OF EXAM: 06/25/2024 12:26 PM COMPARISON: Pre Operative Images if available both CT/MRI or plain film CLINICAL INDICATION: Female, 23 years old with history of Dialysis, 2.5m/3.53DAP, Lt IJ 14.5F x23 ST [facility] Cath Rt IJ; TECHNIQUE: IR cvc insert central tunneled, multiple fluoroscopic images provided for procedure. DAP: 3.53 mGym2 Gycm2 uGym2 cGycm2 or equivalent. FINDINGS: IMPRESSION: 1. Report was generated for administrative purposes only. 2. Please see the operative/procedural note for further details. [facility], , 06/25/2024 12:50 PM
--- NOTE | 2024-06-25 13:20 | XR ---
EXAMINATION TYPE: XR chest 1V portable DATE OF EXAM: 06/25/2024 1:01 PM COMPARISON: Chest radiographs from 08/27/2023. CLINICAL INDICATION: Female, 23 years old with history of hemodialysis cathether placed to left chest wall; [facility] TECHNIQUE: XR chest 1V portable Frontal view of the chest. FINDINGS: Lungs/Pleura: There is no evidence of pleural effusion, focal consolidation, or pneumothorax. Pulmonary vascularity: Unremarkable. Heart/mediastinum: Cardiomediastinal silhouette is unremarkable. Musculoskeletal: No acute osseous pathology. Other findings: None Lines/Tubes: Left internal jugular central venous catheter with distal tip at the right atrium. IMPRESSION: No acute cardiopulmonary disease/process. [facility], , 06/25/2024 1:18 PM
[2024-06-25 17:01] VITALS: BP 119/64; PULSE 82
== END 2024-06-25 13:37 | disposition home or self-care (01) ==
LOC: CATHCVL 10:39
PROVIDERS: ATTEND Surgery
DX: T82.49XA Other complication of vascular dialysis catheter, initial encounter (principal); N18.6 End stage renal disease; Z99.2 Dependence on renal dialysis; Y83.8 Other surgical procedures as the cause of abnormal reaction of the patient, or of later complication, without mention of misadventure at the time of the procedure
CPT/HCPCS: 36558; 36589; 76937; 77001; 84703; 71045; C1769; C1750; J2250; J0690; J2003; J1644; J3010